=== PATIENT | female | born 1955 | race Caucasian/White ===

== ENCOUNTER → 2019-08-16 08:17 | Outpatient (BNVA) | payer MEDICARE, MEDICAID, SELFPAY | PROVIDERS: Family Provider Family Medicine; PCP Family Medicine; Visit Provider Internal Medicine Cardiovascular Disease | DX: E78.5 Hyperlipidemia, unspecified (principal) | CPT/HCPCS: 80061; 80076 ==

== ENCOUNTER → 2019-09-06 08:00 | Outpatient (BNVA) | payer MEDICARE, MEDICAID, SELFPAY | PROVIDERS: Family Provider Family Medicine; PCP Family Medicine; Visit Provider Anesthesiology | DX: G89.29 Other chronic pain (principal); M48.04 Spinal stenosis, thoracic region; M54.2 Cervicalgia; G62.9 Polyneuropathy, unspecified; Z79.891 Long term (current) use of opiate analgesic | CPT/HCPCS: 99214 ==

== ENCOUNTER 2019-11-23 08:47 | Outpatient (CLI) | payer MEDICARE, MEDICAID, SELFPAY ==
[2019-11-23 08:57] VITALS: BP 127/74; PULSE 70; RESP 16; TEMP 36.7; O2SAT 96
[2019-11-23] MEDS: denosumab 60 mg SDV SUBCUT (09:08)
[2019-11-23 09:54] VITALS: BP 140/75; PULSE 65; RESP 16; TEMP 36.7; O2SAT 96
== END 2019-11-23 08:48 | disposition home or self-care (01) ==
LOC: RHEOACUTE 08:49
PROVIDERS: Family Provider Family Medicine; PCP Family Medicine; Visit Provider Internal Medicine Rheumatology
DX: M81.0 Age-related osteoporosis without current pathological fracture (principal)
CPT/HCPCS: 96372; J0897

== ENCOUNTER 2019-12-15 06:42 | Emergency (ER) | payer MEDICARE, MEDICAID, SELFPAY ==
[2019-12-15 06:49] VITALS: BP 128/80; PULSE 105; RESP 16; TEMP 36.7; O2SAT 99; BMI 35.9
--- NOTE | 2019-12-15 07:03 | W.ED.NAVMDI ---
HPI - Nausea/Vomiting/Diarrhea General: Chief complaint: Nausea/Vomiting/Diarrhea Stated complaint: N/V X4 DAYS Time Seen by Provider: 12/15/19 07:02 Source: patient Mode of arrival: ambulatory Limitations: no limitations History of Present Illness: HPI Narrative: 64-year-old female states she has had nausea vomiting, diarrhea for 3 days. She states that it is improving she states she feels dehydrated and has some epigastric cramping. States her stools are watery in nature. Denies any fevers. She denies any worsening or improving factors. MD elicited complaint: nausea, vomiting and diarrhea Associated nausea: Yes Associated symtoms: Reports nausea; Denies chest pain, dysuria or headache(s) Review of Systems Const: Denies: fever(s), chills, body aches or change in appetite Eyes: Denies: blurry vision or eye discomfort ENMT: Denies: throat pain or dental pain Card: Denies: chest pain Resp: Denies: dyspnea GI: Reports: nausea and vomiting : Denies: dysuria Musc: Denies: neck pain or back pain Skin/Breast: Denies: rash Neuro: Denies: headache(s) Psych: Denies: depression Mans[place]/Lymph: Denies: easy bruising All/Imm: Denies: urticaria PFSH ED PFSH: Medical History Age related osteoporosis ASHD (arteriosclerotic heart disease) Chronic midline thoracic back pain CKD (chronic kidney disease) Controlled diabetes mellitus Diabetes Encounter for long-term (current) use of NSAIDs Encounter for long-term opiate analgesic use Generalized neuropathy Hyperlipidemia Hypertension MOLLY (obstructive sleep apnea) Osteoarthritis Spinal stenosis, thoracic region Surgical History Hx of carpal tunnel repair Hx of cholecystectomy Hx of knee surgery Hx of kyphoplasty Family History Other Cancer Hypertension Social History Smoking and tobacco status: former smoker Second hand smoke exposure: Yes Alcohol intake: never History of recent travel: No Physical Exam Const: COMMON NORMALS: no acute distress, patient oriented x3 and healthy appearing HENMT: COMMON NORMALS: normocephalic and atraumatic HEAD & SCALP: normocephalic and atraumatic Eye: COMMON NORMALS: Equal, round and reactive pupils present and EOMs intact bilaterally PUPIL: Yes Equal, round and reactive pupils present Neck/C-Spine: COMMON NORMALS: full ROM and supple Chest: COMMONS NORMALS: normal inspection of the chest and normal palpation of entire chest wall Resp: COMMON NORMALS: normal respiratory effort, No retractions, No use of accessory muscles and clear to auscultation bilaterally AUSCULTATION: clear to auscultation bilaterally Cardio: COMMON NORMALS: regular rate, regular rhythm and No murmurs present (Cardio) RATE: regular rate RHYTHM: regular rhythm GI: COMMON NORMALS: Normal to inspection, nondistended, normoactive bowel sounds present, Soft to palpation, non-tender and no masses PALPATION: Yes Soft to palpation Extremity: COMMON NORMALS: normal to inspection and full ROM Neuro: COMMON NORMALS: patient oriented x3, moves all extremities and no focal motor deficits Psych: COMMON NORMALS: mental status grossly normal, Normal thought process present and cooperative THOUGHT PROCESS: Normal thought process present Skin: COMMON NORMALS: no rashes or lesions noted and no wounds GENERAL SKIN EXAM: no rashes or lesions noted Course Vital Signs: Vital signs: Vital Signs Temperature 98.0 F 12/15/19 06:49 Pulse Rate 97 12/15/19 08:53 Respiratory Rate 18 12/15/19 08:53 Blood Pressure 129/75 12/15/19 08:53 Pulse Oximetry 97 12/15/19 08:53 MDM - Nausea/Vomiting/Diarrhea MDM Narrative: Medical decision making narrative: Patient presents with nausea vomiting diarrhea that is likely viral in origin. Patient feels much improved here after Zofran. She was unable to give a stool sample. Her lab work here is normal. She is stable for discharge and is to follow-up with primary care doctor in 3 to 5 days return if worsening. Lab Data: Labs: Lab Results 12/15/19 12/15/19 Range/Units 07:10 07:10 WBC 7.7 (4.0-10.0) 10^3/ uL RBC 4.65 (4.1-5.3) 10^6/u L Hgb 13.9 (11.5-15.3) g/dL Hct 44.1 (37.0-47.0) % MCV 94.8 (81-99) fL MCH 29.9 (28.0-34.0) pg MCHC 31.5 (30.0-36.0) g/dL RDW 12.4 (12.1-15.1) % Plt Count 208 (130-400) 10^3/c mm MPV 9.5 (7.4-10.4) fL Neut % (Auto) 73.8 % Lymph % (Auto) 15.1 % Powell % (Auto) 10.0 % Eos % (Auto) 0.0 % Baso % (Auto) 0.4 % Neut # (Auto) 5.7 (1.8-7.7) 10^3/u L Lymph # (Auto) 1.2 (0.8-4.8) 10^3/u L Powell # (Auto) 0.8 (0.2-0.9) 10^3/u L Eos # (Auto) 0.0 (0.0-0.8) 10^3/u L Baso # (Auto) 0.0 (0.0-0.1) 10^3/u L Nucleated RBC % (a uto) 0 % Nucleated RBCs # 0.0 /100WBC Sodium 129 L (136-145) mmol/L Potassium 3.2 L (3.5-5.1) mmol/L Chloride 93 L (98-107) mmol/L Carbon Dioxide 21 L (22-29) mmol/L Anion Gap 18.2 (5-19) BUN 15 (8-23) mg/dL Creatinine 1.1 H (0.5-0.9) mg/dL GFR Calculation 50.2 L (90-130) mL/min Glucose 162 H (65-115) mg/dL Calculated Osmolal ity 268 L (285-295) mOsm/k g Calcium 8.4 L (8.5-10.5) mg/dL Total Bilirubin 0.3 (0.15-1.2) mg/dL AST 16 (0-32) U/L ALT < 5 (0-33) U/L Alkaline Phosphata se 81 (35-105) IU/L Total Protein 7.7 (6.6-8.7) g/dL Albumin 4.0 (3.5-5.2) g/dL Globulin 3.7 (1.3-4.6) g/dL Lipase 18 (13-60) U/L Discharge Plan Discharge Patient Disposition: Home, Self-Care Clinical Impression: Diarrhea Vomiting Qualifiers: Vomiting type: unspecified Vomiting Intractability: non-intractable Nausea presence: with nausea Qualified Code(s): R11.2 - Nausea with vomiting, unspecified Condition: Stable Prescriptions: New Zofran 4 mg tablet 4 mg PO QID PRN (Reason: nausea and vomiting) Qty: 14 RF: 0 No Action amlodipine 5 mg tablet 5 mg PO DAILY RF: 0 aspirin [Adult Aspirin Regimen] 81 mg tablet,delayed release (DR/EC) 81 mg PO DAILY RF: 0 glipizide 5 mg tablet 5 mg PO DAILY RF: 0 naproxen 500 mg tablet 500 mg PO BID RF: 0 escitalopram oxalate 10 mg tablet 10 mg PO DAILY RF: 0 omega-3 fatty acids Capsule 1,250 mg PO DAILY RF: 0 rosuvastatin [Crestor] 40 mg tablet 40 mg PO DAILY RF: 0 bupropion HCl 150 mg tablet extended release 24 hr 150 mg PO QAM RF: 0 Dexilant 60 mg capsule,biphase delayed releas 60 mg PO DAILY RF: 0 calcium citrate-vitamin D3 PO RF: 0 hydromorphone 4 mg tablet 4 mg PO TID PRN (Reason: pain) 30 Days Qty: 90 RF: 0 hydromorphone [Dilaudid] 4 mg tablet 4 mg PO TID PRN (Reason: pain) 30 Days Qty: 90 RF: 0 ezetimibe 10 mg tablet 10 mg PO DAILY 90 Days Qty: 90 RF: 3 carvedilol 6.25 mg tablet 6.25 mg PO BID Qty: 180 RF: 3 Discharge Orders: Discharge Order (Routine); Ordered 12/15/19 Ordered By: Riri Coates Referrals: Dena Mueller MD [Primary Care Provider] - 1-3 days Discharge Diet: Advance as tolerated Discharge Activity: Resume usual activity Patient Instructions: Acute Nausea and Vomiting (ED) Discharge Date/Time: 12/15/19 08:53 Coding Level of Care Code ED Correctional Manager for Chg Fwd Exam Comprehensive
[2019-12-15] MEDS: sodium chloride 0.9% 1,000 ML 999 ML IV (07:18)
[2019-12-15] MEDS: ondansetron 2 mg/ML SDV 2 mL 4 MG IVP (07:19)
[2019-12-15 07:21] VITALS: RESP 18
[2019-12-15] MEDS: morphine 4 mg/mL SDV 1 mL IVP (07:21)
[2019-12-15 07:29] LABS: Basophils % 0.4 %; Hematocrit 44.1 % (37.0-47.0); Hemoglobin 13.9 g/dL (11.5-15.3); Lymphocytes # 1.2 10^3/uL (0.8-4.8); Lymphocytes % 15.1 %; Mean Corpuscular HGB Conc 31.5 g/dL (30.0-36.0); Mean Corpuscular Hemoglobin 29.9 pg (28.0-34.0); Mean Corpuscular Volume 94.8 fL (81-99); Mean Platelet Volume 9.5 fL (7.4-10.4); Monocytes # 0.8 10^3/uL (0.2-0.9); Neutrophils # 5.7 10^3/uL (1.8-7.7); Neutrophils % 73.8 %; Nucleated Red Blood Cells % 0 %; Platelet Count 208 10^3/cmm (130-400); Red Blood Count 4.65 10^6/uL (4.1-5.3); Red Cell Distribution Width 12.4 % (12.1-15.1); White Blood Count 7.7 10^3/uL (4.0-10.0)
[2019-12-15 07:50] LABS: Alanine Aminotransferase < 5 U/L (0-33); Alkaline Phosphatase 81 IU/L (35-105); Anion Gap 18.2 (5-19); Aspartate Amino Transferase 16 U/L (0-32); Blood Urea Nitrogen 15 mg/dL (8-23); Calcium 8.4 mg/dL (8.5-10.5); Carbon Dioxide 21 mmol/L (22-29); Chloride 93 mmol/L (98-107); Globulin 3.7 g/dL (1.3-4.6); Glomerular Filtration Rate 50.2 mL/min (90-130); Glucose 162 mg/dL (65-115); Lipase 18 U/L (13-60); Osmolality Calculated 268 mOsm/kg (285-295); Potassium 3.2 mmol/L (3.5-5.1); Sodium 129 mmol/L (136-145); Total Bilirubin 0.3 mg/dL (0.15-1.2); Total Protein 7.7 g/dL (6.6-8.7)
[2019-12-15 08:00] VITALS: BP 135/74; PULSE 99; RESP 15; O2SAT 99
[2019-12-15] MEDS: diphenhydrAMINE 50 mg/mL SDV 1mL 25 MG IVP (08:03)
[2019-12-15] MEDS: metoclopramide 5 mg/mL SDV 2 mL IVP (08:03)
[2019-12-15 08:53] VITALS: BP 129/75; PULSE 97; RESP 18; O2SAT 97
== END 2019-12-15 08:53 | disposition home or self-care (01) ==
PROVIDERS: Emergency Provider Emergency Medicine; PCP Family Medicine
DX: R11.2 Nausea with vomiting, unspecified (principal); R19.7 Diarrhea, unspecified; Z79.82 Long term (current) use of aspirin; Z79.84 Long term (current) use of oral hypoglycemic drugs; E11.9 Type 2 diabetes mellitus without complications; E78.5 Hyperlipidemia, unspecified; I10 Essential (primary) hypertension; Z87.891 Personal history of nicotine dependence
CPT/HCPCS: 12345; 80053; 83690; 85025; 96361; 96374; 96375; 99282; 99283; J1200; J2270; J2405; J2765; J7030

== ENCOUNTER → 2020-01-02 08:00 | Outpatient (BNVA) | payer MEDICARE, MEDICAID, SELFPAY | PROVIDERS: PCP Family Medicine; Visit Provider Anesthesiology | DX: G89.29 Other chronic pain (principal); M54.2 Cervicalgia; M48.04 Spinal stenosis, thoracic region; Z79.891 Long term (current) use of opiate analgesic | CPT/HCPCS: 99213; 99214 ==

== ENCOUNTER → 2020-02-29 07:54 | Outpatient (BNVA) | payer MEDICARE, MEDICAID, SELFPAY | PROVIDERS: PCP Family Medicine; Visit Provider Anesthesiology | DX: G89.29 Other chronic pain (principal); M54.41 Lumbago with sciatica, right side; M54.42 Lumbago with sciatica, left side; M48.04 Spinal stenosis, thoracic region; M54.2 Cervicalgia; Z79.891 Long term (current) use of opiate analgesic | CPT/HCPCS: 99214 ==

== ENCOUNTER → 2020-04-30 07:49 | Outpatient (BNVA) | payer MEDICARE, MEDICAID, SELFPAY | PROVIDERS: PCP Family Medicine; Visit Provider Anesthesiology | DX: G89.29 Other chronic pain (principal); M54.2 Cervicalgia; M48.04 Spinal stenosis, thoracic region; G62.9 Polyneuropathy, unspecified; Z79.891 Long term (current) use of opiate analgesic | CPT/HCPCS: 99214 ==

== ENCOUNTER 2020-05-06 14:50 | Outpatient (CLI) | payer MEDICARE, MEDICAID, SELFPAY ==
--- NOTE | 2020-05-06 15:04 | XR_ITS ---
WS: [id number] DEXA (DUAL ENERGY X-RAY ABSORPTIOMETRY) Bone mineral density was performed using a [employer] machine. HISTORY: OSTEOPOROSIS COMPARISON: 04/18/2018 Lumbar spine BMD (L1-L4): 1.083 g/cm2 T score: -0.8 Z score: -0.2 Total hip BMD: Left: 0.711 g/cm2. T score: -2.4 Z score: -1.9 Right: 0.663 g/cm2. T score: -2.7 Z score: -2.3 10 year probability of a major osteoporotic fracture is 32%. Compared to the prior study from 04/18/2018. Lumbar spine bone mineral density has increased by 8.0%. Bilateral hips bone mineral density has increased by 4.4%. XR/XR DEXA axial skeleton* [id number] IMPRESSION: OSTEOPOROSIS based upon the WHO classification for females. Increase in bone mi neral density since the prior exam but there is still significant osteoporosis.
== END 2020-05-06 14:51 | disposition home or self-care (01) ==
LOC: RADWPI 14:52
PROVIDERS: PCP Family Medicine; Visit Provider Family Medicine
DX: M81.0 Age-related osteoporosis without current pathological fracture (principal)
CPT/HCPCS: 77080

== ENCOUNTER 2020-05-08 07:37 | Outpatient (CLI) | payer MEDICARE, MEDICAID, SELFPAY ==
--- NOTE | 2020-05-08 08:03 | MM_ITS ---
WS: [id number] BILATERAL SCREENING DIGITAL MAMMOGRAM WITH CAD HISTORY: SCREENING COMPARISON: 03/17/2019 and 03/01/2018 Bilateral CC and MLO views submitted. Computer aided detection analyzed. Breast composition: There are scattered areas of fibroglandular density. No suspicious masses, microc alcifications or architectural distortion. Numerous benign round scattered calcifications in each carline ast. MM/[place] [id number] IMPRESSION: BI-RADS: 2-Benign FOLLOW UP: 1 Year Follow-up
== END 2020-05-08 07:38 | disposition home or self-care (01) ==
LOC: RADSHAW 07:40
PROVIDERS: PCP Family Medicine; Visit Provider Family Medicine
DX: Z12.31 Encounter for screening mammogram for malignant neoplasm of breast (principal)
CPT/HCPCS: 77067

== ENCOUNTER 2020-05-27 09:41 | Outpatient (CLI) | payer MEDICARE, MEDICAID, SELFPAY ==
[2020-05-27 09:45] VITALS: BP 131/70; PULSE 66; RESP 16; TEMP 36.6; O2SAT 98
[2020-05-27] MEDS: denosumab 60 mg SDV SUBCUT (09:56)
[2020-05-27 10:25] VITALS: BP 124/67; PULSE 69; RESP 16; TEMP 36.8; O2SAT 97
--- NOTE | 2020-05-27 10:26 | PC.NURSE ---
0945 A&O. Ambulating with prong cane. Denies s&s symptoms of infection. States no new medication changes. States had a DEXA scan recently. [facility] has been on Prolia since 2014.
== END 2020-05-27 09:42 | disposition home or self-care (01) ==
LOC: RHEOACUTE 09:42
PROVIDERS: PCP Family Medicine; Visit Provider Internal Medicine Rheumatology
DX: M81.0 Age-related osteoporosis without current pathological fracture (principal)
CPT/HCPCS: 96372; J0897

== ENCOUNTER → 2020-05-28 11:08 | Outpatient (BNVA) | payer MEDICARE, MEDICAID, SELFPAY | PROVIDERS: PCP Family Medicine; Visit Provider Dermatology | DX: D48.9 Neoplasm of uncertain behavior, unspecified (principal) | CPT/HCPCS: 88304 ==

== ENCOUNTER → 2020-06-25 07:57 | Outpatient (BNVA) | payer MEDICARE, MEDICAID, SELFPAY | PROVIDERS: PCP Family Medicine; Visit Provider Anesthesiology | DX: M54.6 Pain in thoracic spine (principal); G89.29 Other chronic pain; M48.04 Spinal stenosis, thoracic region; Z79.891 Long term (current) use of opiate analgesic; G62.9 Polyneuropathy, unspecified; M54.2 Cervicalgia | CPT/HCPCS: 99214 ==

== ENCOUNTER → 2020-08-15 07:57 | Outpatient (BNVA) | payer MEDICARE, MEDICAID, SELFPAY | PROVIDERS: PCP Family Medicine; Visit Provider Anesthesiology | DX: G89.29 Other chronic pain (principal); M54.2 Cervicalgia; M48.04 Spinal stenosis, thoracic region; Z79.891 Long term (current) use of opiate analgesic | CPT/HCPCS: 99213 ==

== ENCOUNTER → 2020-09-18 08:08 | Outpatient (BNVA) | payer MEDICARE, MEDICAID, SELFPAY | PROVIDERS: PCP Family Medicine; Visit Provider Anesthesiology | DX: G89.29 Other chronic pain (principal); M54.41 Lumbago with sciatica, right side; M54.6 Pain in thoracic spine; M48.04 Spinal stenosis, thoracic region; Z79.891 Long term (current) use of opiate analgesic | CPT/HCPCS: 99213 ==

== ENCOUNTER → 2020-11-28 07:54 | Outpatient (BNVA) | payer MEDICARE, MEDICAID, SELFPAY | PROVIDERS: PCP Family Medicine; Visit Provider Anesthesiology | DX: G89.29 Other chronic pain (principal); M48.04 Spinal stenosis, thoracic region; M54.2 Cervicalgia; Z79.891 Long term (current) use of opiate analgesic | CPT/HCPCS: 99213 ==

== ENCOUNTER 2021-01-21 16:49 | Emergency (ER) | payer MEDICARE, MEDICAID, SELFPAY ==
[2021-01-21 18:10] VITALS: BP 131/84; PULSE 95; RESP 18; TEMP 37.2; O2SAT 95; BMI 40.6
--- NOTE | 2021-01-21 21:06 | XRR_ITS ---
PROCEDURE INFORMATION: Exam: XR Chest Exam date and time: 01/21/2021 9:06 PM Age: 66 years old Clinical indication: Cough TECHNIQUE: Imaging protocol: XR of the chest. Views: 1 view. COMPARISON: CR Chest 1 [place] [id number] 02/17/2018 12:21 AM FINDINGS: Lungs: Unremarkable. No consolidation. Pleural spaces: Unremarkable. No pleural effusion. No pneumothorax. Heart/Mediastinum: Unremarkable. No cardiomegaly. Bones/joints: Status post vertebroplasty. Postoperative changes of the left shoulder. XR/XR chest 1V portable [id number] IMPRESSION: No acute findings
--- NOTE | 2021-01-21 21:06 | ECG_ITS ---
[facility] Test Date: 2021-01-21 Pat Name: Griselda Manjarrez Department: Room: Gender: Female [employer] Stitcher: : [id number] Requested By: Arun Almanzar Order Number: [id number] Matilde MD: Hitesh Hooker M.D. Measurements Intervals [place] Rate: 90 P: 24 OK: 151 QRS: 11 QRSD: 89 T: 56 QT: 388 QTc: 476 Interpretive Statements SINUS RHYTHM LOW QRS VOLTAGE IN PRECORDIAL LEADS [QRS DEFLECTION < 1.0 mV IN CHEST LEADS] NONSPECIFIC T-WAVE ABNORMALITY Compared to ECG 02/17/2018 00:06:19 Low QRS voltage now present T-wave abnormality now present Sinus tachycardia no longer present Electronically Signed On 01-22-2021 22:49:47 CDT by Hitesh Hooker M.D. [email or web address]
--- NOTE | 2021-01-21 21:07 | ED_ITS ---
Documented by User: Arun Almanzar MD 01/21/21 22:56 HPI - Dizziness General: Chief Complaint: Dizziness Stated Complaint: DIZZY, COUGH Time Seen by Provider: 01/21/21 21:02 History of Present Illness: HPI Narrative: This patient is a 66-year-old female who presents to the emergency department with complaint of cough congestion and dizziness for the past couple days. Patient states that this has gotten so profound today that she feels like she is going to fall she tries to get up. Patient states she has had this cough and congestion seems like she cannot cough anything. Patient denies fever. Denies body aches. Will do medical evaluation treat as needed. MD elicited complaint: dizziness and vertigo Timing: gradual onset Severity: moderate Description: sense of movement, room spinning , lightheadedness and difficulty walking Associated symptoms: Denies chest pain, chills, headache(s), nausea, palpitations or vomiting Associated neuro symptoms: Deny numbness in extremities Review of Systems General: Reports: 10 or more systems reviewed and unremarkable except in HPI and below Const: Denies: fever(s), chills, body aches or fatigue Eyes: Denies: change in vision or blurry vision ENMT: Denies: throat pain, hoarseness or mouth pain Card: Denies: chest pain, palpitations, irregular heart rhythm, edema, swelling of feet/ankles or lightheadedness Resp: Denies: dyspnea, productive cough, non-productive cough, wheezing or pain on inspiration GI: Denies: abdominal pain, nausea or vomiting : Denies: flank pain, difficulty voiding, dysuria, urinary frequency, urinary urgency or urinary hesitancy Musc: Denies: neck pain, back pain, extremity pain, extremity swelling, joint pain, joint swelling, joint redness, joint warmth or limited range of motion Skin/Breast: Denies: rash, pruritus, erythema or skin tenderness Neuro: Reports: difficulty walking and dizziness; Denies: headache(s), numbness in extremities or weakness in extremities Psych: Denies: anxiety or depression PFS ED PFSH: Medical History (Updated 01/22/21 @ 01:11 by Keith Reza MD) Age related osteoporosis ASHD (arteriosclerotic heart disease) Chronic midline thoracic back pain CKD (chronic kidney disease) Controlled diabetes mellitus Diabetes Encounter for long-term (current) use of NSAIDs Encounter for long-term opiate analgesic use Generalized neuropathy Hyperlipidemia Hypertension MOLLY (obstructive sleep apnea) Osteoarthritis Spinal stenosis, thoracic region Surgical History Hx of carpal tunnel repair Hx of cholecystectomy Hx of knee surgery Hx of kyphoplasty Family History Other Cancer Hypertension Social History Smoking and tobacco status: former smoker Second hand smoke exposure: Yes Alcohol intake: never History of recent travel: No Physical Exam Const: COMMON NORMALS: no acute distress, average body habitus, patient oriented x3, no limitations, healthy appearing, alert and well nourished HENMT: COMMON NORMALS: normocephalic, atraumatic, hearing grossly normal bilaterally, external ears normal, EAC's normal, TM's normal bilaterally, Normal external nose present, Normal nasal mucous membranes and turbinates present, moist oral mucous membranes, oropharynx normal, dentition normal and gingiva normal HEAD & SCALP: normocephalic and atraumatic NOSE: Normal external nose present and Normal nasal mucous membranes and turbinates present EXTERNAL EAR: Yes external ears normal EXTERNAL AUDITORY CANAL: EAC's normal TYMPANIC MEMBRANE: TM's normal bilaterally Neck/C-Spine: COMMON NORMALS: full ROM, no lymphadenopathy, supple, no meningeal signs, no JVD, Thyroid normal and No carotid bruits THYROID: Thyroid normal Chest: COMMONS NORMALS: normal inspection of the chest, normal palpation of entire chest wall, normal inspection of the breasts and normal palpation of the breasts Breast/axilla inspection: Yes normal inspection of the breasts BREAST/AXILLA PALPATION: Yes normal palpation of the breasts Resp: COMMON NORMALS: normal respiratory effort, No retractions, No use of accessory muscles, clear to auscultation bilaterally and percussion normal AUSCULTATION: clear to auscultation bilaterally PERCUSSION: percussion normal Cardio: COMMON NORMALS: no JVD, regular rate, regular rhythm, S1 normal heart sound present, S2 normal heart sound present, No gallops present (Cardio), No clicks present (Cardio), No murmurs present (Cardio), No rub (Cardio) and Peripheral pulses 2+ throughout RATE: regular rate RHYTHM: regular rhythm HEART SOUNDS: S1 normal heart sound present and S2 normal heart sound present PERIPHERAL PULSES: Peripheral pulses 2+ throughout GI: COMMON NORMALS: Normal to inspection, nondistended, normoactive bowel luis alberto nds present, Soft to palpation, non-tender, No hepatosplenomegaly present, no masses and no bruits PALPATION: Yes Soft to palpation and Yes No hepatosplenomegaly present : COMMON NORMALS: Yes no CVA tenderness, Yes normal external appearance, Yes normal appearance of the vagina, Yes normal appearance of the cervix, Yes normal bimanual exam, Yes No adnexal tenderness and Yes no masses BLADDER/KIDNEY EXAM: Yes no CVA tenderness BIMANUAL EXAM - VAGINA & UTERUS: Yes normal bimanual exam Back/Pelvis: COMMON NORMALS: no CVA tenderness, thoracic and lumbar spine normal to inspection, no thoracic nor lumbar tenderness, thoraco-lumbar ROM normal and straight leg raise negative bilaterally Extremity: COMMON NORMALS: normal to inspection, full ROM, capillary refill normal, no joint enlargement, no clubbing, cyanosis or edema, no calf tenderness and no pedal edema Neuro: COMMON NORMALS: patient oriented x3 SENSORIUM/ORIENTATION: Yes alert MENINGEAL SIGNS: Yes no meningeal signs Course Consultations: Consultation #1: Care transferred to Dr. Reza for shift change he will continue to monitor the patient and disposition as needed Time: 22:55 Vital Signs: Vital signs: Vital Signs Temperature 99.0 F 01/21/21 18:10 Pulse Rate 84 01/22/21 01:49 Respiratory Rate 18 01/22/21 01:49 Blood Pressure 129/87 01/22/21 01:49 Pulse Oximetry 98 01/22/21 01:49 MDM - Dizziness Lab Data: Labs: Lab Results 01/21/21 01/21/21 01/21/21 Range/Units 22:35 22:45 23:25 WBC 11.4 H (4.0-10.0) 10^3/ uL RBC 3.47 L (4.1-5.3) 10^6/u L Hgb 10.3 L (11.5-15.3) g/dL Hct 34.6 L (37.0-47.0) % MCV 99.7 H (81-99) fL MCH 29.7 (28.0-34.0) pg MCHC 29.8 L (30.0-36.0) g/dL RDW 12.6 (12.1-15.1) % Plt Count 281 (130-400) 10^3/c mm MPV 9.4 (7.4-10.4) fL Neut % (Auto) 65.2 % Lymph % (Auto) 23.1 % [place] % (Auto) 10.2 % Eos % (Auto) 0.5 % Baso % (Auto) 0.5 % Neut # (Auto) 7.42 (1.8-7.7) 10^3/u L Lymph # (Auto) 2.6 (0.8-4.8) 10^3/u L [place] # (Auto) 1.2 H (0.2-0.9) 10^3/u L Eos # (Auto) 0.1 (0.0-0.8) 10^3/u L Baso # (Auto) 0.1 (0.0-0.1) 10^3/u L Nucleated RBC % (a uto) 0 % Nucleated RBCs # 0.0 /100WBC PT (12.1-14.9) SECO NDS INR (0.8-1.2) APTT (23.9-36.7) SECO NDS Sodium (136-145) mmol/L Potassium (3.5-5.1) mmol/L Chloride (98-107) mmol/L Carbon Dioxide (22-29) mmol/L Anion Gap (5-19) BUN (8-23) mg/dL Creatinine (0.5-0.9) mg/dL GFR Calculation (90-130) mL/min Glucose (65-115) mg/dL Calculated Osmolal ity (285-295) mOsm/k g Calcium (8.5-10.5) mg/dL Total Bilirubin (0.15-1.2) mg/dL AST (0-32) U/L ALT (0-33) U/L Alkaline Phosphata se (35-105) IU/L NT-Pro-B Natriuret Pep (0-125) pg/mL Total Protein (6.6-8.7) g/dL Albumin (3.5-5.2) g/dL Globulin (1.3-4.6) g/dL Urine Color Yellow (Yellow) Urine Appearance Clear (CLEAR) Urine pH 6 (5-7) Ur Specific Gravit y 1.015 (1.005-1.030) Urine Protein Neg (Negative) Urine Glucose (UA) Norm (Normal) Urine Ketones Negative (Negative) Urine Blood Neg (Negative) Urine Nitrate Negative (Negative) Urine Bilirubin Neg (Negative) Urine Urobilinogen 4 H (Negative) mg/dL Ur Leukocyte [place] ase Negative (Negative) SARS-CoV-2 Ag (Rap id) Negative (Negative) 01/21/21 01/21/21 Range/Units 23:25 23:25 WBC (4.0-10.0) 10^3/ uL RBC (4.1-5.3) 10^6/u L Hgb (11.5-15.3) g/dL Hct (37.0-47.0) % MCV (81-99) fL MCH (28.0-34.0) pg MCHC (30.0-36.0) g/dL RDW (12.1-15.1) % Plt Count (130-400) 10^3/c mm MPV (7.4-10.4) fL Neut % (Auto) % Lymph % (Auto) % [place] % (Auto) % Eos % (Auto) % Baso % (Auto) % Neut # (Auto) (1.8-7.7) 10^3/u L Lymph # (Auto) (0.8-4.8) 10^3/u L [place] # (Auto) (0.2-0.9) 10^3/u L Eos # (Auto) (0.0-0.8) 10^3/u L Baso # (Auto) (0.0-0.1) 10^3/u L Nucleated RBC % (a uto) % Nucleated RBCs # /100WBC PT 15.00 H (12.1-14.9) SECO NDS INR 1.14 (0.8-1.2) APTT 30.4 (23.9-36.7) SECO NDS Sodium 136 (136-145) mmol/L Potassium 3.9 (3.5-5.1) mmol/L Chloride 101 (98-107) mmol/L Carbon Dioxide 26 (22-29) mmol/L Anion Gap 12.9 (5-19) BUN 14 (8-23) mg/dL Creatinine 1.1 H (0.5-0.9) mg/dL GFR Calculation 49.8 L (90-130) mL/min Glucose 124 H (65-115) mg/dL Calculated Osmolal ity 284 L (285-295) mOsm/k g Calcium 8.9 (8.5-10.5) mg/dL Total Bilirubin 0.4 (0.15-1.2) mg/dL AST 9 (0-32) U/L ALT < 5 (0-33) U/L Alkaline Phosphata se 105 (35-105) IU/L NT-Pro-B Natriuret Pep 200 H (0-125) pg/mL Total Protein 6.9 (6.6-8.7) g/dL Albumin 3.4 L (3.5-5.2) g/dL Globulin 3.5 (1.3-4.6) g/dL Urine Color (Yellow) Urine Appearance (CLEAR) Urine pH (5-7) Ur Specific Gravit y (1.005-1.030) Urine Protein (Negative) Urine Glucose (UA) (Normal) Urine Ketones (Negative) Urine Blood (Negative) Urine Nitrate (Negative) Urine Bilirubin (Negative) Urine Urobilinogen (Negative) mg/dL Ur Leukocyte [place] ase (Negative) SARS-CoV-2 Ag (Rap id) (Negative) Imaging Data^: CT Head: Attestation: I personally reviewed and interpreted this imaging study as fol lows: Radiologist's impression: IMPRESSION: 1. Mild chronic microvascular disease. 2. Acute intracranial lesion or injury and no change from prior scan CXR: Attestation: I personally reviewed and interpreted this imaging study as follows: Radiologist's impression: No acute findings EKG Data^: EKG 1: Attestation: I personally reviewed and interpreted this EKG as follows: EKG interpretation date: 01/21/21 EKG interpretation time: 22:08 Prior EKG tracings: not available for review Ischemic changes: non-specific ST-T wave changes Interpretation: Sinus rhythm heart rate 90 nonspecific EKG changes. Discharge Plan Discharge Patient Disposition: Home Clinical Impression: Peripheral positional vertigo, Hemoglobin decreased Condition: Stable Prescriptions: New meclizine 25 mg tablet,chewable 25 mg PO TID PRN (Reason: dizziness) Qty: 30 RF: 0 No Action amlodipine 5 mg tablet 5 mg PO DAILY RF: 0 aspirin [Adult Aspirin Regimen] 81 mg tablet,delayed release (DR/EC) 81 mg PO DAILY RF: 0 escitalopram oxalate 10 mg tablet 10 mg PO DAILY RF: 0 rosuvastatin [Crestor] 40 mg tablet 40 mg PO DAILY RF: 0 bupropion HCl 150 mg tablet extended release 24 hr 150 mg PO DAILY RF: 0 Dexilant 60 mg capsule,biphase delayed releas 60 mg PO DAILY RF: 0 calcium citrate-vitamin D3 1 tab PO DAILY RF: 0 ropinirole 0.5 mg tablet 0.5 mg PO BID RF: 0 hydromorphone 4 mg tablet 4 mg PO TID PRN (Reason: pain) 30 Days Qty: 90 RF: 0 carvedilol 6.25 mg tablet 6.25 mg PO BID Qty: 180 RF: 3 glipizide 10 mg tablet extended release 24hr 40 mg PO DAILY RF: 0 [place] 3 Fish Oil Concentrate 1,250 mg PO DAILY RF: 0 Zetia 10 mg tablet 10 mg PO DAILY RF: 0 Discharge Orders: Discharge ED (Routine); Ordered 01/22/21 Ordered By: Keith Reza Referrals: Dena Mueller MD [Primary Care Provider] - (to recheck hemoglobin. concern for occult GI bleed) Discharge Diet: Usual diet Discharge Activity: Increase activity as tolerated Patient Instructions: Opioid Safety Activity Restrictions/Additional Instructions: Please be mindful of your hemoglobin drop. Is gone from 13.9-10.3 over the last several weeks. This likely represents an occult gastrointestinal bleed. Please follow-up with your primary care physician in roughly 1 to 2 weeks to recheck your blood levels. Please take the medicine as prescribed for your peripheral vertigo. Coding Level of Care Code ED Ratoprinter for Chg Fwd Exam Comprehensive Documented by User: Keith Reza MD 01/22/21 05:12 HPI - Dizziness General: Chief Complaint: Dizziness Stated Complaint: DIZZY, COUGH Time Seen by Provider: 01/21/21 21:02 [facility] ED PFSH: Medical History (Updated 01/22/21 @ 01:11 by Keith Reza MD) Age related osteoporosis ASHD (arteriosclerotic heart disease) Chronic midline thoracic back pain CKD (chronic kidney disease) Controlled diabetes mellitus Diabetes Encounter for long-term (current) use of NSAIDs Encounter for long-term opiate analgesic use Generalized neuropathy Hyperlipidemia Hypertension MOLLY (obstructive sleep apnea) Osteoarthritis Spinal stenosis, thoracic region Surgical History Hx of carpal tunnel repair Hx of cholecystectomy Hx of knee surgery Hx of kyphoplasty Family History Other Cancer Hypertension Social History Smoking and tobacco status: former smoker Second hand smoke exposure: Yes Alcohol intake: never History of recent travel: No Course Vital Signs: Vital signs: Vital Signs Temperature 99.0 F 01/21/21 18:10 Pulse Rate 84 01/22/21 01:49 Respiratory Rate 18 01/22/21 01:49 Blood Pressure 129/87 01/22/21 01:49 Pulse Oximetry 98 01/22/21 01:49 MDM - Dizziness MDM Narrative: Medical decision making narrative: Patient remained hemodynamically stable through ED course. Symptoms are consistent with peripheral vertigo, and are much better after receiving meclizine. Of note, hemoglobin is dropped significantly. She denies dark or bloody stools. I advised that she follow close with her primary care physician to make sure her hemoglobin does not continue to drop. She knows she is always welcome back in the emergency department if her symptoms get worse before outpatient follow-up. She will be given a short course of meclizine. Lab Data: Labs: Lab Results 01/21/21 01/21/21 01/21/21 Range/Units 22:35 22:45 23:25 WBC 11.4 H (4.0-10.0) 10^3/ uL RBC 3.47 L (4.1-5.3) 10^6/u L Hgb 10.3 L (11.5-15.3) g/dL Hct 34.6 L (37.0-47.0) % MCV 99.7 H (81-99) fL MCH 29.7 (28.0-34.0) pg MCHC 29.8 L (30.0-36.0) g/dL RDW 12.6 (12.1-15.1) % Plt Count 281 (130-400) 10^3/c mm MPV 9.4 (7.4-10.4) fL Neut % (Auto) 65.2 % Lymph % (Auto) 23.1 % [place] % (Auto) 10.2 % Eos % (Auto) 0.5 % Baso % (Auto) 0.5 % Neut # (Auto) 7.42 (1.8-7.7) 10^3/u L Lymph # (Auto) 2.6 (0.8-4.8) 10^3/u L [place] # (Auto) 1.2 H (0.2-0.9) 10^3/u L Eos # (Auto) 0.1 (0.0-0.8) 10^3/u L Baso # (Auto) 0.1 (0.0-0.1) 10^3/u L Nucleated RBC % (a uto) 0 % Nucleated RBCs # 0.0 /100WBC PT (12.1-14.9) SECO NDS INR (0.8-1.2) APTT (23.9-36.7) SECO NDS Sodium (136-145) mmol/L Potassium (3.5-5.1) mmol/L Chloride (98-107) mmol/L Carbon Dioxide (22-29) mmol/L Anion Gap (5-19) BUN (8-23) mg/dL Creatinine (0.5-0.9) mg/dL GFR Calculation (90-130) mL/min Glucose (65-115) mg/dL Calculated Osmolal ity (285-295) mOsm/k g Calcium (8.5-10.5) mg/dL Total Bilirubin (0.15-1.2) mg/dL AST (0-32) U/L ALT (0-33) U/L Alkaline Phosphata se (35-105) IU/L NT-Pro-B Natriuret Pep (0-125) pg/mL Total Protein (6.6-8.7) g/dL Albumin (3.5-5.2) g/dL Globulin (1.3-4.6) g/dL Urine Color Yellow (Yellow) Urine Appearance Clear (CLEAR) Urine pH 6 (5-7) Ur Specific Gravit y 1.015 (1.005-1.030) Urine Protein Neg (Negative) Urine Glucose (UA) Norm (Normal) Urine Ketones Negative (Negative) Urine Blood Neg (Negative) Urine Nitrate Negative (Negative) Urine Bilirubin Neg (Negative) Urine Urobilinogen 4 H (Negative) mg/dL Ur Leukocyte [place] a[place] Negative (Negative) SARS-CoV-2 Ag (Rap id) Negative (Negative) 01/21/21 01/21/21 Range/Units 23:25 23:25 WBC (4.0-10.0) 10^3/ uL RBC (4.1-5.3) 10^6/u L Hgb (11.5-15.3) g/dL Hct (37.0-47.0) % MCV (81-99) fL MCH (28.0-34.0) pg MCHC (30.0-36.0) g/dL RDW (12.1-15.1) % Plt Count (130-400) 10^3/c mm MPV (7.4-10.4) fL Neut % (Auto) % Lymph % (Auto) % [place] % (Auto) % Eos % (Auto) % Baso % (Auto) % Neut # (Auto) (1.8-7.7) 10^3/u L Lymph # (Auto) (0.8-4.8) 10^3/u L [place] # (Auto) (0.2-0.9) 10^3/u L Eos # (Auto) (0.0-0.8) 10^3/u L Baso # (Auto) (0.0-0.1) 10^3/u L Nucleated RBC % (a uto) % Nucleated RBCs # /100WBC PT 15.00 H (12.1-14.9) SECO NDS INR 1.14 (0.8-1.2) APTT 30.4 (23.9-36.7) SECO NDS Sodium 136 (136-145) mmol/L Potassium 3.9 (3.5-5.1) mmol/L Chloride 101 (98-107) mmol/L Carbon Dioxide 26 (22-29) mmol/L Anion Gap 12.9 (5-19) BUN 14 (8-23) mg/dL Creatinine 1.1 H (0.5-0.9) mg/dL GFR Calculation 49.8 L (90-130) mL/min Glucose 124 H (65-115) mg/dL Calculated Osmolal ity 284 L (285-295) mOsm/k g Calcium 8.9 (8.5-10.5) mg/dL Total Bilirubin 0.4 (0.15-1.2) mg/dL AST 9 (0-32) U/L ALT < 5 (0-33) U/L Alkaline Phosphata se 105 (35-105) IU/L NT-Pro-B Natriuret Pep 200 H (0-125) pg/mL Total Protein 6.9 (6.6-8.7) g/dL Albumin 3.4 L (3.5-5.2) g/dL Globulin 3.5 (1.3-4.6) g/dL Urine Color (Yellow) Urine Appearance (CLEAR) Urine pH (5-7) Ur Specific Gravit y (1.005-1.030) Urine Protein (Negative) Urine Glucose (UA) (Normal) Urine Ketones (Negative) Urine Blood (Negative) Urine Nitrate (Negative) Urine Bilirubin (Negative) Urine Urobilinogen (Negative) mg/dL Ur Leukocyte [place] ase (Negative) SARS-CoV-2 Ag (Rap id) (Negative) Discharge Plan Discharge Patient Disposition: Home Clinical Impression: Peripheral positional vertigo, Hemoglobin decreased Condition: Stable Prescriptions: New meclizine 25 mg tablet,chewable 25 mg PO TID PRN (Reason: dizziness) Qty: 30 RF: 0 No Action amlodipine 5 mg tablet 5 mg PO DAILY RF: 0 aspirin [Adult Aspirin Regimen] 81 mg tablet,delayed release (DR/EC) 81 mg PO DAILY RF: 0 escitalopram oxalate 10 mg tablet 10 mg PO DAILY RF: 0 rosuvastatin [Crestor] 40 mg tablet 40 mg PO DAILY RF: 0 bupropion HCl 150 mg tablet extended release 24 hr 150 mg PO DAILY RF: 0 Dexilant 60 mg capsule,biphase delayed releas 60 mg PO DAILY RF: 0 calcium citrate-vitamin D3 1 tab PO DAILY RF: 0 ropinirole 0.5 mg tablet 0.5 mg PO BID RF: 0 hydromorphone 4 mg tablet 4 mg PO TID PRN (Reason: pain) 30 Days Qty: 90 RF: 0 carvedilol 6.25 mg tablet 6.25 mg PO BID Qty: 180 RF: 3 glipizide 10 mg tablet extended release 24hr 40 mg PO DAILY RF: 0 [place] 3 Fish Oil Concentrate 1,250 mg PO DAILY RF: 0 Zetia 10 mg tablet 10 mg PO DAILY RF: 0 Discharge Orders: Discharge ED (Routine); Ordered 01/22/21 Ordered By: Keith Reza Referrals: Dnea Mueller MD [Primary Care Provider] - (to recheck hemoglobin. concern for occult GI bleed) Discharge Diet: Usual diet Discharge Activity: Increase activity as tolerated Patient Instructions: Opioid Safety Activity Restrictions/Additional Instructions: Please be mindful of your hemoglobin drop. Is gone from 13.9-10.3 over the last several weeks. This likely represents an occult gastrointestinal bleed. Please follow-up with your primary care physician in roughly 1 to 2 weeks to recheck your blood levels. Please take the medicine as prescribed for your peripheral vertigo. Coding Level of Care Code ED Ratoprinter for [place] Fwd Exam Comprehensive
--- NOTE | 2021-01-21 21:09 | CTR_ITS ---
PROCEDURE INFORMATION: Exam: CT Head Without Contrast Exam date and time: 01/21/2021 9:09 PM Age: 66 years old Clinical indication: Pain; Headache; Patient HX: RIVERS with dizziness. TECHNIQUE: Imaging protocol: Computed tomography of the head without contrast. Radiation optimization: All CT scans at this facility use at least one of these dose optimization techniques: automated exposure control; mA and/or kV adjustment per patient size (includes targeted exams where dose is matched to clinical indication); or iterative reconstruction. COMPARISON: CT head wo con* [id number] 02/17/2018 1:48 AM RADIATION DOSE METRICS: Total DLP (mGy-cm): 825.87 FINDINGS: Brain: There is mild volume loss. There is mild periventricular white matter lucency consistent with chronic microvascular disease. Is no evidence of acute infarct. There is no hemorrhage or extra-axial collection. There is no mass. Cerebral ventricles: No ventriculomegaly. Paranasal sinuses: Visualized sinuses are unremarkable. No fluid levels. Mastoid air cells: Visualized mastoid air cells are well aerated. Bones/joints: Unremarkable. No acute fracture. Soft tissues: Unremarkable. CT/CT head wo con* [id number] IMPRESSION: 1. Mild chronic microvascular disease. 2. Acute intracranial lesion or injury and no change from prior scan Radiation Dose CTDIVOL = (mGy): DLP = 825.87 (mGy-cm)
[2021-01-21 22:18] VITALS: BP 118/69; BP 119/85; BP 129/73; PULSE 92; PULSE 93; PULSE 98
[2021-01-21 22:42] LABS: Add Urine Microscopic? NO; Charge for UA Resulting for Rev
[2021-01-21 22:45] LABS: Bilirubin Urine Neg (Negative); Blood Urine Neg (Negative); Glucose Urine UA Norm (Normal); Ketones Urine Negative (Negative); Leukocyte Esterase Urine Negative (Negative); Nitrate Urine Negative (Negative); Protein Urine Neg (Negative); Specific Gravity, Urine 1.015 (1.005-1.030); Urine Appearance Clear (CLEAR); Urine Color Yellow (Yellow); Urobilinogen Urine 4 mg/dL (Negative); pH Urine 6 (5-7)
[2021-01-21 23:15] VITALS: BP 129/87; PULSE 84; RESP 20; O2SAT 95
[2021-01-21 23:17] LABS: SARS Covid-2 Antigen Negative (Negative)
[2021-01-21 23:30] LABS: Basophils # 0.1 10^3/uL (0.0-0.1); Basophils % 0.5 %; Eosinophils # 0.1 10^3/uL (0.0-0.8); Eosinophils % 0.5 %; Hematocrit 34.6 % (37.0-47.0); Hemoglobin 10.3 g/dL (11.5-15.3); Lymphocytes # 2.6 10^3/uL (0.8-4.8); Lymphocytes % 23.1 %; Mean Corpuscular HGB Conc 29.8 g/dL (30.0-36.0); Mean Corpuscular Hemoglobin 29.7 pg (28.0-34.0); Mean Corpuscular Volume 99.7 fL (81-99); Mean Platelet Volume 9.4 fL (7.4-10.4); Monocytes # 1.2 10^3/uL (0.2-0.9); Monocytes % 10.2 %; Neutrophils # 7.42 10^3/uL (1.8-7.7); Neutrophils % 65.2 %; Nucleated Red Blood Cells % 0 %; Platelet Count 281 10^3/cmm (130-400); Red Blood Count 3.47 10^6/uL (4.1-5.3); Red Cell Distribution Width 12.6 % (12.1-15.1); White Blood Count 11.4 10^3/uL (4.0-10.0)
[2021-01-21] MEDS: sodium chloride 0.9% 1,000 ML 999 ML IV (23:30)
[2021-01-21] MEDS: meclizine 25 mg tablet PO (23:40)
[2021-01-21 23:52] LABS: INR 1.14 (0.8-1.2)
[2021-01-21 23:54] LABS: Partial Thromboplastin Time 30.4 SECONDS (23.9-36.7)
[2021-01-22 00:07] LABS: Alanine Aminotransferase < 5 U/L (0-33); Albumin Level 3.4 g/dL (3.5-5.2); Alkaline Phosphatase 105 IU/L (35-105); Anion Gap 12.9 (5-19); Aspartate Amino Transferase 9 U/L (0-32); Blood Urea Nitrogen 14 mg/dL (8-23); Calcium 8.9 mg/dL (8.5-10.5); Carbon Dioxide 26 mmol/L (22-29); Chloride 101 mmol/L (98-107); Globulin 3.5 g/dL (1.3-4.6); Glomerular Filtration Rate 49.8 mL/min (90-130); Glucose 124 mg/dL (65-115); Osmolality Calculated 284 mOsm/kg (285-295); Potassium 3.9 mmol/L (3.5-5.1); Sodium 136 mmol/L (136-145); Total Bilirubin 0.4 mg/dL (0.15-1.2); Total Protein 6.9 g/dL (6.6-8.7)
[2021-01-22 00:08] LABS: Creatinine Clr Calc Pharmacy 54.4844
[2021-01-22 00:11] LABS: NT Pro B Type Natriuretic Pept 200 pg/mL (0-125)
[2021-01-22 01:49] VITALS: BP 129/87; PULSE 84; RESP 18; O2SAT 98
== END 2021-01-22 01:40 | disposition home or self-care (01) ==
PROVIDERS: Emergency Provider Emergency Medicine; PCP Family Medicine
DX: H81.399 Other peripheral vertigo, unspecified ear (principal); D64.9 Anemia, unspecified; Z79.82 Long term (current) use of aspirin; Z79.84 Long term (current) use of oral hypoglycemic drugs; E11.9 Type 2 diabetes mellitus without complications; E78.5 Hyperlipidemia, unspecified; I10 Essential (primary) hypertension; Z87.891 Personal history of nicotine dependence; Z20.822 Contact with and (suspected) exposure to COVID-19
CPT/HCPCS: 70450; 71045; 80053; 81003; 83880; 85025; 85610; 85730; 87426; 93005; 96360; 99284; J7030; J8597

== ENCOUNTER → 2021-01-22 08:14 | Outpatient (BNVA) | payer MEDICARE, MEDICAID, SELFPAY | PROVIDERS: PCP Family Medicine; Visit Provider Anesthesiology | DX: G89.29 Other chronic pain (principal); M48.04 Spinal stenosis, thoracic region; Z79.891 Long term (current) use of opiate analgesic; Z87.891 Personal history of nicotine dependence | CPT/HCPCS: 99213 ==

== ENCOUNTER 2021-01-23 17:01 | Outpatient (CLI) | payer MEDICARE, MEDICAID, SELFPAY ==
--- NOTE | 2021-01-23 17:11 | CTR_ITS ---
PROCEDURE INFORMATION: Exam: CT Abdomen And Pelvis With Contrast Exam date and time: 01/23/2021 5:11 PM Age: 66 years old Clinical indication: Abdominal pain; Localized; Upper; Prior surgery; Surgery type: Back, gb; Additional info: Acute upper abd pain. Loose stools. Loss of appetite TECHNIQUE: Imaging protocol: Computed tomography of the abdomen and pelvis with contrast. Sagittal and coronal reformatted images were created and reviewed. Radiation optimization: All CT scans at this facility use at least one of these dose optimization techniques: automated exposure control; mA and/or kV adjustment per patient size (includes targeted exams where dose is matched to clinical indication); or iterative reconstruction. Contrast material: VISI 320; Contrast volume: 95 ml; Contrast route: INTRAVENOUS (IV); COMPARISON: CT Chest/Abdomen/Pelvis w IV* 08/31/2017 12:09 PM RADIATION DOSE METRICS: Total DLP (mGy-cm): 1680.55 FINDINGS: Lungs: Interval development of compressive atelectasis in the right and left lower lobes. Calcified granuloma in the the right middle lobe. Pleural spaces: Interval development of small bilateral pleural effusions. Heart: Interval development of a moderate pericardial effusion. Stable mild enlargement of the heart. Liver: The liver is unremarkable. Gallbladder and bile ducts: Stable findings consistent with a previous cholecystectomy. Few small retained biliary stones in the cystic duct remnant are stable. Dilatation of the biliary ducts, not unexpected in a patient who has had a prior cholecystectomy. Pancreas: Stable calcification in the tail of the pancreas. No pancreatic ductal dilatation. Spleen: The spleen is unremarkable. Adrenal glands: The right and left adrenal glands are unremarkable. Kidneys and ureters: Simple cyst in the right kidney measuring 1.8 cm. The left kidney is unremarkable. The right and left ureters are unremarkable. Stomach and bowel: No obstruction. No mucosal thickening. Appendix: The appendix is visualized and is unremarkable. No findings to suggest acute appendicitis. Intraperitoneal space: No free intraperitoneal air. Interval development of small volume ascites. No loculated fluid collections to suggest an abscess. Vasculature: Moderate atherosclerotic changes in the visualized arteries. No evidence for aortic aneurysm or aortic dissection. Lymph nodes: No lymphadenopathy. Urinary bladder: The bladder is incompletely filled, which can limit evaluation. No focal abnormality in the bladder however. Reproductive: The uterus, right ovary, and left ovary are unremarkable. Bones/joints: Bones are diffusely osteopenic. Moderate degenerative changes of the right and left sacroiliac joints. Moderate degenerative changes at both the right and left hips. Multilevel degenerative changes of varying severity in the visualized spine. Multiple old rib fractures bilaterally. Mild scoliosis in the visualized spine. Multiple old, moderate to severe compression deformities from T7 through L4. Kyphoplasty procedures at T7 and T8. Findings are stable. Soft tissues: Interval development of mild body wall edema. CT/CT abdomen pelvis w con* [id number] IMPRESSION: 1. Interval development of a moderate pericardial effusion. 2. Interval development of small volume ascites. 3. Interval development of mild body wall edema. 4. Interval development of small bilateral pleural effusions with compressive atelectasis in the right and left lower lobes. 5. Stable findings consistent with a previous cholecystectomy. Few small retained biliary stones in the cystic duct remnant are also stable. 6. Incidental/nonacute findings are listed in the report. COMMENTS: Consistent with the [employer]'s Incidental Findings Committee white paper (J Am Adi Radiol 2018): Any incidental renal lesion less than 1 cm or classified as too small to characterize, or any incidental cystic renal lesion characterized as simple-appearing, is likely benign. No follow-up imaging is recommended for these lesions per consensus recommendations based on imaging criteria. Radiation Dose CTDIVOL = (mGy): DLP = 1680.55 (mGy-cm)
[2021-01-23] MEDS: iodixanol 320 mg/mL 100mL Btl IV (17:25)
== END 2021-01-23 17:02 | disposition home or self-care (01) ==
LOC: RAD 17:04
PROVIDERS: PCP Family Medicine; Visit Provider Physician Assistant
DX: R10.9 Unspecified abdominal pain (principal)
CPT/HCPCS: 74177

== ENCOUNTER 2021-01-24 15:14 | Inpatient (IN) | payer MEDICARE, MEDICAID, SELFPAY ==
--- NOTE | 2021-01-24 15:18 | XRR_ITS ---
PROCEDURE INFORMATION: Exam: XR Chest Exam date and time: 01/24/2021 3:18 PM Age: 66 years old Clinical indication: Cough and shortness of breath; Additional info: SOB TECHNIQUE: Imaging protocol: XR of the chest. Views: 1 view. COMPARISON: CR XR chest 2V* [id number] 01/23/2021 3:45 PM FINDINGS: Lungs: Hazy opacification along the periphery of the right lung base. Pleural spaces: Small volume bilateral pleural effusions. Heart/Mediastinum: Mild diffuse vascular prominence. Mild cardiomegaly. Bones/joints: Rotator cuff suture anchor from prior rotator cuff repair noted in the left humeral head. Moderate DJD of the glenohumeral and acromioclavicular joints. Multilevel vertebroplasty material noted in the thoracic spine. XR/XR chest 1V portable [id number] IMPRESSION: 1. Cardiomegaly with mild diffuse pulmonary vascular congestion. Small bilateral pleural effusions. 2. Hazy opacification along the periphery of the right lung base, possibly secondary to atelectasis from the pleural effusion. This could represent pneumonia in the appropriate clinical setting.
[2021-01-24 15:56] VITALS: BP 127/83; PULSE 103; RESP 18; TEMP 37; O2SAT 96; BMI 41.9
[2021-01-24 17:23] LABS: Basophils # 0.1 10^3/uL (0.0-0.1); Basophils % 0.6 %; Eosinophils % 0.2 %; Hematocrit 35.9 % (37.0-47.0); Hemoglobin 10.8 g/dL (11.5-15.3); Lymphocytes # 2.1 10^3/uL (0.8-4.8); Lymphocytes % 16.5 %; Mean Corpuscular HGB Conc 30.1 g/dL (30.0-36.0); Mean Corpuscular Hemoglobin 29.5 pg (28.0-34.0); Mean Corpuscular Volume 98.1 fL (81-99); Mean Platelet Volume 9.3 fL (7.4-10.4); Monocytes # 1.1 10^3/uL (0.2-0.9); Monocytes % 8.7 %; Neutrophils # 9.42 10^3/uL (1.8-7.7); Neutrophils % 73.5 %; Nucleated Red Blood Cells % 0 %; Platelet Count 319 10^3/cmm (130-400); Red Blood Count 3.66 10^6/uL (4.1-5.3); Red Cell Distribution Width 12.7 % (12.1-15.1); White Blood Count 12.8 10^3/uL (4.0-10.0)
[2021-01-24 17:49] LABS: Troponin(5th) Baseline 8 ng/L (0-10)
[2021-01-24 17:57] LABS: Alanine Aminotransferase < 5 U/L (0-33); Albumin Level 3.4 g/dL (3.5-5.2); Alkaline Phosphatase 113 IU/L (35-105); Anion Gap 14.8 (5-19); Aspartate Amino Transferase 11 U/L (0-32); Blood Urea Nitrogen 12 mg/dL (8-23); Carbon Dioxide 25 mmol/L (22-29); Chloride 100 mmol/L (98-107); Globulin 3.6 g/dL (1.3-4.6); Glomerular Filtration Rate 62.8 mL/min (90-130); Glucose 150 mg/dL (65-115); NT Pro B Type Natriuretic Pept 290 pg/mL (0-125); Osmolality Calculated 285 mOsm/kg (285-295); Potassium 3.8 mmol/L (3.5-5.1); Sodium 136 mmol/L (136-145); Total Bilirubin 0.3 mg/dL (0.15-1.2)
[2021-01-24 19:33] LABS: Troponin 5 2HR 9.22 ng/L (0-10); Troponin 5 2HR Delta 1.22 ABS# (0-10)
--- NOTE | 2021-01-24 21:18 | ECG_ITS ---
[facility] Test Date: 2021-01-24 Pat Name: Griselda Manjarrez Department: Room: Gender: Female [place]: : [id number] Requested By: Amanda Zhong Order Number: [id number] Matilde MD: Nguyễn Edmondson M.D. Measurements Intervals [place] Rate: 102 P: 31 CO: 144 QRS: 9 QRSD: 84 T: 70 QT: 352 QTc: 459 Interpretive Statements SINUS TACHYCARDIA LOW QRS VOLTAGE IN PRECORDIAL LEADS [QRS DEFLECTION < 1.0 mV IN CHEST LEADS] ABNORMAL RHYTHM ECG Compared to ECG 01/21/2021 22:08:21 Sinus rhythm no longer present T-wave abnormality no longer present Electronically Signed On 01-26-2021 17:23:36 CDT by Nguyễn Edmondson M.D. [id number]
--- NOTE | 2021-01-24 22:01 | W.ED.SOB ---
HPI - SOB/Dyspnea General: Chief Complaint: Shortness of Breath/Dyspnea Stated Complaint: SOB/SENT BY PCP JESSICA YUN Time Seen by Provider: 01/24/21 22:00 History of Present Illness: HPI Narrative: 66-year-old female comes in today for complaints of increasing shortness of breath. Patient reports for last 3 weeks he has had some difficulty breathing. Patient did report a drop in her oxygen saturation at the clinic yesterday when she was up and ambulating. Patient was seen on the sixth and was diagnosed with no concerns. Patient then saw Jessica Yun in urgent care and was further evaluated and they found increasing pleural effusion and a mild pericardial effusion on a CT scan. Patient then was referred to the ER today for further evaluation. Patient reports no chest pain. Patient states that she is unable to walk but just very short distances due to their increase in shortness of breath. Patient does have a history of diabetes mellitus, positional vertigo, coronary artery disease, atherosclerosis, chronic kidney disease, and spinal stenosis. Review of Systems General: Reports: 10 or more systems reviewed and unremarkable except in HPI and below Resp: Reports: dyspnea PFSH ED PFSH: Medical History (Updated 01/25/21 @ 01:21 by ALBINO Alcala) Age related osteoporosis ASHD (arteriosclerotic heart disease) Chronic midline thoracic back pain CKD (chronic kidney disease) Controlled diabetes mellitus Diabetes Encounter for long-term (current) use of NSAIDs Encounter for long-term opiate analgesic use Generalized neuropathy Hyperlipidemia Hypertension MOLLY (obstructive sleep apnea) Osteoarthritis Spinal stenosis, thoracic region Surgical History Hx of carpal tunnel repair Hx of cholecystectomy Hx of knee surgery Hx of kyphoplasty Family History Other Cancer Hypertension Social History Smoking and tobacco status: former smoker Second hand smoke exposure: Yes Alcohol intake: never History of recent travel: No Physical Exam Const: COMMON NORMALS: no acute distress and patient oriented x3 GENERAL APPEARANCE: cooperative HENMT: COMMON NORMALS: normocephalic and Normal external nose present HEAD & SCALP: normal to inspection and normocephalic NOSE: Normal external nose present MOUTH: Normal oral and palatal mucosa present Eye: GENERAL EYE: appearance normal, both eyes and all related structures Neck/C-Spine: COMMON NORMALS: full ROM Chest: COMMONS NORMALS: normal inspection of the chest Resp: COMMON NORMALS: normal respiratory effort EFFORT & INSPECTION: Yes able to speak in complete sentences AUSCULTATION: diminished lung sounds Cardio: COMMON NORMALS: regular rate and regular rhythm RATE: regular rate RHYTHM: regular rhythm GI: COMMON NORMALS: non-tender Back/Pelvis: COMMON NORMALS: thoracic and lumbar spine normal to inspection Extremity: COMMON NORMALS: normal to inspection Neuro: COMMON NORMALS: patient oriented x3 and moves all extremities Psych: COMMON NORMALS: mental status grossly normal and cooperative Skin: COMMON NORMALS: no rashes or lesions noted GENERAL SKIN EXAM: no rashes or lesions noted Course ED course: 2229, discussed CT scan results with Dr. Coates, attending ER physician, he recommended that we do a echocardiogram for further evaluation. Discussed that patient has had increasing pleural effusion the right lower lung that was noted on the x-ray change for the last 2 days. He believes patient might need to be admitted for further treatment. 00 30, patient was ambulated and oxygen saturation was monitored showing a decrease to 95% but patient had increased dyspnea with chest pressure with exertion. I discussed with Dr. Phillips she agreed to evaluate the patient and consider observation admission. Vital Signs: Vital signs: Vital Signs Temperature 98.6 F 01/24/21 15:56 Pulse Rate 103 H 01/24/21 15:56 Respiratory Rate 18 01/24/21 15:56 Blood Pressure 127/83 01/24/21 15:56 Pulse Oximetry 96 01/24/21 15:56 MDM - SOB/Dyspnea MDM Narrative: Medical decision making narrative: Patient comes in today for continued difficulty with breathing and shortness of breath over the last 3 weeks. Patient was evaluated at the urgent care yesterday and was called this morning and told to follow-up in the emergency room due to concerns for a pleural effusion and a pericardial effusion. Patient reports her main concern is that she is having increasing difficulty with breathing and is unable to move around or walk significant distances due to her increasing shortness of breath. Lungs are decreased in the bases. Vital signs are unremarkable. Patient appears pink and warm and dry. Review of the chest x-ray from the sixth to the one today does note some increased shadowing in the right lower lung. Differential diagnosis includes but not limited to congestive heart failure, pericardial effusion of unknown etiology, ACS. Troponin was normal. Patient has some mild anemia on the CBC. CMP was unremarkable. Patient has worsening shortness of breath and chest x-ray did show some increase in the pleural effusion on the right lower lung. Patient went up and ambulate and has significant exertion and some chest discomfort but pulse oxygen does not drop below 90. I think that patient would benefit from observation and a echocardiogram. I discussed this with Dr. Coates who agreed to plan. Dr. Phillips was consulted for admission to hospital. Lab Data: Labs: Lab Results 01/24/21 01/24/21 01/24/21 Range/Units 17:11 17:11 17:11 WBC 12.8 H (4.0-10.0) 10^3/ uL RBC 3.66 L (4.1-5.3) 10^6/u L Hgb 10.8 L (11.5-15.3) g/dL Hct 35.9 L (37.0-47.0) % MCV 98.1 (81-99) fL MCH 29.5 (28.0-34.0) pg MCHC 30.1 (30.0-36.0) g/dL RDW 12.7 (12.1-15.1) % Plt Count 319 (130-400) 10^3/c mm MPV 9.3 (7.4-10.4) fL Neut % (Auto) 73.5 % Lymph % (Auto) 16.5 % [place] % (Auto) 8.7 % Eos % (Auto) 0.2 % Baso % (Auto) 0.6 % Neut # (Auto) 9.42 H (1.8-7.7) 10^3/u L Lymph # (Auto) 2.1 (0.8-4.8) 10^3/u L [place] # (Auto) 1.1 H (0.2-0.9) 10^3/u L Eos # (Auto) 0.0 (0.0-0.8) 10^3/u L Baso # (Auto) 0.1 (0.0-0.1) 10^3/u L Nucleated RBC % (a uto) 0 % Nucleated RBCs # 0.0 /100WBC Sodium 136 (136-145) mmol/L Potassium 3.8 (3.5-5.1) mmol/L Chloride 100 (98-107) mmol/L Carbon Dioxide 25 (22-29) mmol/L Anion Gap 14.8 (5-19) BUN 12 (8-23) mg/dL Creatinine 0.9 (0.5-0.9) mg/dL GFR Calculation 62.8 L (90-130) mL/min Glucose 150 H (65-115) mg/dL Calculated Osmolal ity 285 (285-295) mOsm/k g Calcium 9.0 (8.5-10.5) mg/dL Total Bilirubin 0.3 (0.15-1.2) mg/dL AST 11 (0-32) U/L ALT < 5 (0-33) U/L Alkaline Phosphata se 113 H (35-105) IU/L Troponin T Baselin e 8 (0-10) ng/L Troponin T 120 Min [place] (0-10) ng/L Delta Troponin T (0-10) ABS# Troponin T Hi Sens 6Hr (0-10) ng/L Troponin T Hi Sens 6Hr Delta (0-12) ng/L NT-Pro-B Natriuret Pep 290 H (0-125) pg/mL Total Protein 7.0 (6.6-8.7) g/dL Albumin 3.4 L (3.5-5.2) g/dL Globulin 3.6 (1.3-4.6) g/dL SARS-CoV-2 Ag (Rap id) (Negative) 01/24/21 01/24/21 01/24/21 Range/Units 19:09 22:50 23:10 WBC (4.0-10.0) 10^3/ uL RBC (4.1-5.3) 10^6/u L Hgb (11.5-15.3) g/dL Hct (37.0-47.0) % MCV (81-99) fL MCH (28.0-34.0) pg MCHC (30.0-36.0) g/dL RDW (12.1-15.1) % Plt Count (130-400) 10^3/c mm MPV (7.4-10.4) fL Neut % (Auto) % Lymph % (Auto) % [place] % (Auto) % Eos % (Auto) % Baso % (Auto) % Neut # (Auto) (1.8-7.7) 10^3/u L Lymph # (Auto) (0.8-4.8) 10^3/u L [place] # (Auto) (0.2-0.9) 10^3/u L Eos # (Auto) (0.0-0.8) 10^3/u L Baso # (Auto) (0.0-0.1) 10^3/u L Nucleated RBC % (a uto) % Nucleated RBCs # /100WBC Sodium (136-145) mmol/L Potassium (3.5-5.1) mmol/L Chloride (98-107) mmol/L Carbon Dioxide (22-29) mmol/L Anion Gap (5-19) BUN (8-23) mg/dL Creatinine (0.5-0.9) mg/dL GFR Calculation (90-130) mL/min Glucose (65-115) mg/dL Calculated Osmolal ity (285-295) mOsm/k g Calcium (8.5-10.5) mg/dL Total Bilirubin (0.15-1.2) mg/dL AST (0-32) U/L ALT (0-33) U/L Alkaline Phosphata se (35-105) IU/L Troponin T Baselin e (0-10) ng/L Troponin T 120 Min [place] 9.22 (0-10) ng/L Delta Troponin T 1.22 (0-10) ABS# Troponin T Hi Sens 6Hr 9.14 (0-10) ng/L Troponin T Hi Sens 6Hr Delta 1.14 (0-12) ng/L NT-Pro-B Natriuret Pep (0-125) pg/mL Total Protein (6.6-8.7) g/dL Albumin (3.5-5.2) g/dL Globulin (1.3-4.6) g/dL SARS-CoV-2 Ag (Rap id) Negative (Negative) EKG Data^: EKG 1: Attestation: I personally reviewed and interpreted this EKG as follows: (7, EKG shows a sinus tachycardia with a regular rate at [address] elevation or ectopy is noted at this time. No prior exam is noted for comparison at this time.) Discharge Plan Discharge Patient Disposition: Placed in Observation Admit Provider: Leigh Ann Phillips Clinical Impression: Pericardial effusion, Pleural effusion, PINEDA (dyspnea on exertion) Coding Level of Care Code ED Violin Teacher for Chg Fwd Exam Comprehensive
[2021-01-24 23:44] LABS: Troponin 5 6HR 9.14 ng/L (0-10); Troponin 5 6HR Delta 1.14 ng/L (0-12)
[2021-01-24] MEDS: FUROsemide 10 mg/mL SDV 4mL 40 MG IVP (23:46)
[2021-01-25] VITALS (9 sets, daily range): BP systolic 100–132; BP diastolic 68–85; PULSE 62–110; RESP 17–18; TEMP 36.6–37; O2SAT 93–97
[2021-01-25 00:31] LABS: SARS Covid-2 Antigen Negative (Negative)
[2021-01-25 03:14] LABS: Add Urine Microscopic? NO; Charge for UA Resulting for Rev
[2021-01-25 03:36] LABS: Glucose Urine UA Norm (Normal); Protein Urine Neg (Negative); Urine Appearance Clear (CLEAR); Urine Color Yellow (Yellow); pH Urine 5 (5-7)
[2021-01-25 03:37] LABS: Bilirubin Urine Neg (Negative); Blood Urine Neg (Negative); Ketones Urine 1+ (Negative); Leukocyte Esterase Urine Negative (Negative); Nitrate Urine Negative (Negative); Urobilinogen Urine Norm (Negative)
--- NOTE | 2021-01-25 03:44 | PM.HP ---
Providers/Chief Complaint Admitting Physician: Leigh Ann Phillips MD Primary Care Provider: Dena Mueller MD Chief Complaint: SOB/SENT BY PCP JESSICA YUN History of Present Illness Griselda Manjarrez is a 66 year old female who was sent to the emergency room by [facility] due to findings on a CT of the abdomen and pelvis from January 23 combined with shortness of breath/dyspnea on exertion. Patient was originally seen in the emergency room on January 21 with dizziness and a cough. Dizziness was severe enough that it felt like she was going to fall anytime she tried to walk around. Did not report any fevers. Indicates that she was short of breath then but not as bad as presently. She had work-up to include laboratory studies that showed a drop in her hemoglobin from last year when it was 13 to 10. Denies any gross blood loss. I believe this is what led to the CT of the abdomen and pelvis being done though not certain. Other work-up included CT of the head that showed mild chronic microvascular changes but no acute intracranial lesion or change from prior study. Chest x-ray was unremarkable. She was seen in pain clinic on January 22 with complaints of back pain, fatigue, myalgias and muscle weakness, some of which are chronic. Her pain medications were refilled. She saw Dr. Concepcion also on the for painful callus formation. She was seen at [facility] and had another chest x-ray and CT of the abdomen and pelvis done on January 23. Oxygen saturations evidently dropped in the clinic when she was ambulating but were okay at rest. CT of the abdomen results came back today showing pleural effusions and pericardial effusion so she was sent to the ER to be further evaluated. She states that she has gotten to where she cannot walk very far without becoming very short of breath, not more than a few steps. She denies orthopnea or PND. Has not had lower extremity edema or calf pain. Denies any pleuritic type chest pain or hemoptysis. No nausea or diaphoresis. Has not had palpitations. Has not had something like this before. She denied abdominal pain, vomiting or diarrhea. She does have a history of coronary artery disease that was identified on angiogram some years ago. Disease was described as mild according to Dr. Hooker's most recently available note. Troponins with delta value in the emergency room were unremarkable and EKG showed sinus tachycardia at 102 bpm without any acute ST segment changes. BNP was 290. She did receive a dose of Lasix. She had no evidence of exertional hypoxia but continues to have significant dyspnea with minimal exertion. Given her persistent and significant symptoms she is being admitted for further evaluation. Review of Systems Const: Reports: fatigue and malaise; Denies: fever(s), chills, change in appetite or change in weight ENMT: Reports: disequilibrium, nasal congestion and sinus pain; Denies: throat pain Card: Reports: lightheadedness; Denies: chest pain, palpitations, edema or syncope Resp: Reports: dyspnea, productive cough, non-productive cough and chest congestion; Denies: pain on inspiration or hemoptysis GI: Denies: abdominal pain, nausea, vomiting, diarrhea or constipation : Denies: difficulty voiding Musc: Reports: back pain (chronic) and extremity pain (chronic); Denies: joint redness Skin/Breast: Denies: rash, pruritus or sores Neuro: Reports: headache(s), numbness in extremities (and tingling, not new), weakness in extremities (bilateral) and difficulty walking (uses cane, worse laely due to symptoms) Psych: Denies: anxiety Medications/Allergies Home Medications Medication Instructions Recorded Confirmed Last Taken Type amlodipine 5 mg tablet 5 mg PO DAILY 09/06/19 01/25/21 01/20/21 08:00 History aspirin 81 mg tablet,delayed 81 mg PO DAILY 09/06/19 01/25/21 01/20/21 08:00 History release bupropion HCl 150 mg 24 hr tablet, 150 mg PO DAILY 09/06/19 01/25/21 01/20/21 08:00 History extended release calcium citrate-vitamin D3 1 tab PO DAILY 09/06/19 01/25/21 01/20/21 08:00 History [Calcium Citrate + D] dexlansoprazole 60 mg 60 mg PO DAILY 09/06/19 01/25/21 01/20/21 08:00 History capsule,biphase delayed release escitalopram oxalate 10 mg tablet 10 mg PO DAILY 09/06/19 01/25/21 01/20/21 08:00 History rosuvastatin 40 mg tablet 40 mg PO DAILY 09/06/19 01/25/21 01/20/21 08:00 History carvedilol 6.25 mg tablet 6.25 mg PO BID #180 tab 12/04/19 01/25/21 01/20/21 08:00 Rx ropinirole 0.5 mg tablet 0.5 mg PO BID 11/28/20 01/25/21 01/20/21 08:00 History [place] 3 Fish Oil Concentrate 1,250 mg PO DAILY 01/21/21 01/25/21 01/20/21 08:00 History ezetimibe [Zetia] 10 mg PO DAILY 01/21/21 01/25/21 01/04/21 08:00 History glipizide 40 mg PO DAILY 01/21/21 01/25/21 01/20/21 08:00 History Diabetic Shoes #1 ea 01/22/21 01/25/21 01/20/21 08:00 Rx hydromorphone 4 mg tablet 4 mg PO TID PRN 30 Days #90 tab 01/22/21 01/25/21 01/20/21 08:00 Rx meclizine 25 mg PO TID PRN #30 tab 01/22/21 01/25/21 01/20/21 08:00 Rx Allergies Allergy/AdvReac Type Severity Reaction Status Date / Time alendronate sodium Allergy Unknown Verified 01/22/21 11:09 [From Fosamax] atorvastatin [From Lipitor] Allergy Unknown Verified 01/22/21 11:09 codeine Allergy Unknown Verified 01/22/21 11:09 duloxetine [From Cymbalta] Allergy Unknown Verified 01/22/21 11:09 methylprednisolone Allergy Unknown Verified 01/22/21 11:09 Sulfa (Sulfonamide Allergy Unknown Verified 01/22/21 11:09 Antibiotics) PFSH Acute PFSH: Medical History (Updated 01/25/21 @ 06:45 by Leigh Ann Phillips MD) Age related osteoporosis ASHD (arteriosclerotic heart disease) Chronic midline thoracic back pain CKD (chronic kidney disease) Controlled diabetes mellitus Diabetes Encounter for long-term (current) use of NSAIDs Encounter for long-term opiate analgesic use Generalized neuropathy Hyperlipidemia Hypertension MOLLY (obstructive sleep apnea) Osteoarthritis Spinal stenosis, thoracic region Surgical History Hx of carpal tunnel repair Hx of cholecystectomy Hx of knee surgery Hx of kyphoplasty Family History Other Cancer Hypertension Social History Smoking and tobacco status: former smoker Second hand smoke exposure: Yes Alcohol intake: never History of recent travel: No Vitals/I&O/Wt Last Vital Signs Temp 98.4 F 01/25/21 03:22 Pulse 110 H 01/25/21 03:22 Resp 18 01/25/21 03:22 BP 132/81 01/25/21 03:22 Pulse Ox 96 01/25/21 03:22 Weight last 48 hrs Weight 100.698 kg Physical Exam Narrative: EXAM NARRATIVE: Constitutional: Awake and alert, able to provide history HEENT: Normocephalic, atraumatic, pupils are reactive, nasopharynx with clear rhinorrhea, some facial tenderness persist, oropharynx is clear Neck: Large but supple Respiratory: Clear to auscultation bilaterally without any rales rhonchi or wheezes noted Cardiovascular: Regular rate and rhythm, no murmurs, no rubs Abdomen: Soft, nontender, positive bowel sounds Extremities: Trace edema, various old joint surgical incisions noted Skin: Dry, no rashes or large bruises Neuro: Speech clear, face symmetric, moves all extremities Psych: Normal affect Data : 01/25/21 05:35 01/24/21 17:11 CT Abd/Pel: Radiologist's impression: FROM 01/23/2021 FINDINGS: Lungs: Interval development of compressive atelectasis in the right and left lower lobes. Calcified granuloma in the the right middle lobe. Pleural spaces: Interval development of small bilateral pleural effusions. Heart: Interval development of a moderate pericardial effusion. Stable mild enlargement of the heart. Liver: The liver is unremarkable. Gallbladder and bile ducts: Stable findings consistent with a previous cholecystectomy. Few small retained biliary stones in the cystic duct remnant are stable. Dilatation of the biliary ducts, not unexpected in a patient who has had a prior cholecystectomy. Pancreas: Stable calcification in the tail of the pancreas. No pancreatic ductal dilatation. Spleen: The spleen is unremarkable. Adrenal glands: The right and left adrenal glands are unremarkable. Kidneys and ureters: Simple cyst in the right kidney measuring 1.8 cm. The left kidney is unremarkable. The right and left ureters are unremarkable. Stomach and bowel: No obstruction. No mucosal thickening. Appendix: The appendix is visualized and is unremarkable. No findings to suggest acute appendicitis. Intraperitoneal space: No free intraperitoneal air. Interval development of small volume ascites. No loculated fluid collections to suggest an abscess. Vasculature: Moderate atherosclerotic changes in the visualized arteries. No evidence for aortic aneurysm or aortic dissection. Lymph nodes: No lymphadenopathy. Urinary bladder: The bladder is incompletely filled, which can limit evaluation. No focal abnormality in the bladder however. Reproductive: The uterus, right ovary, and left ovary are unremarkable. Bones/joints: Bones are diffusely osteopenic. Moderate degenerative changes of the right and left sacroiliac joints. Moderate degenerative changes at both the right and left hips. Multilevel degenerative changes of varying severity in the visualized spine. Multiple old rib fractures bilaterally. Mild scoliosis in the visualized spine. Multiple old, moderate to severe compression deformities from T7 through L4. Kyphoplasty procedures at T7 and T8. Findings are stable. Soft tissues: Interval development of mild body wall edema. CT/CT abdomen pelvis w con* [id number] IMPRESSION: 1. Interval development of a moderate pericardial effusion. 2. Interval development of small volume ascites. 3. Interval development of mild body wall edema. 4. Interval development of small bilateral pleural effusions with compressive atelectasis in the right and left lower lobes. 5. Stable findings consistent with a previous cholecystectomy. Few small retained biliary stones in the cystic duct remnant are also stable. 6. Incidental/nonacute findings are listed in the report. 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: without buttermilk drier operator use Diabetes mellitus complication status: without complication Qualified Code(s): E11.9 - Type 2 diabetes mellitus without complications (8) Generalized neuropathy: Status: Chronic (9) Chronic midline thoracic back pain: Status: Chronic (10) Spinal stenosis, thoracic region: Status: Chronic Additional A&P Information Recent sinus symptoms and vertigo Observation admission for now Echocardiogram Check D-dimer Consider CTA of the chest Diuresis Pending results of above may want to consider stress test, either inpatient or outpatient Continue home aspirin, beta-blockade, Zetia Sliding scale insulin presently for diabetes PPI Continue home pain medications Monitor renal function with diuresis and contrast Check lipid panel and A1c for risk stratification Flonase for sinus symptoms Has been tested for Covid 3 days in a row and negative Supportive care otherwise Lovenox for DVT prophylaxis Anticipate discharge home when stable Encouraged her to get her CPAP adjusted so that she could use it at night as prescribed, relating that untreated sleep apnea over time will contribute to pulmonary hypertension and subsequent CHF and respiratory symptoms, even symptoms such as what she is presenting with now Findings, concerns and plans discussed with patient and she was given an opportunity to ask questions Full code Attestations Medical Necessity Statement*: Currently anticipate a stay less than 2 midnights inpatient with dyspnea on minimal exertion who is maintaining oxygen saturations. Plans are as indicated. Coding Level of Care Code Acute Hot Room Attendant for g Fwd Diagnoses PINEDA (dyspnea on exertion) R06.00 Pericardial effusion I31.3 Pleural effusion J90 ASHD (arteriosclerotic heart disease) I25.10 Hypertension I10 Hypertension type: essential hypertension MOLLY (obstructive sleep apnea) G47.33 Controlled diabetes mellitus E11.9 Diabetes mellitus type: type 2 Diabetes mellitus senior living insulin use: without senior living use Diabetes mellitus complication status: without complication Generalized neuropathy G62.9 Chronic midline thoracic back pain M54.6; G89.29 Spinal stenosis, thoracic region M48.04
[2021-01-25] MEDS: enoxaparin 40 mg/0.4 mL Syringe SUBCUT (04:50)
--- NOTE | 2021-01-25 06:00 | USCV_ITS ---
Griselda Manjarrez Age: 66 Gender: F : 1955 Exam Date: 01/25/2021 06:52 Ordering Phys: Randall Schaefer Technologist: Katerni Rios Exam Location: [facility] – [place] Indication: Pericardial effusion on CT BP: 100 / 68 HR: 101 Rhythm: Sinus Technical Quality: Technically difficult study MEASUREMENTS (Male / Female) Normal Values 2D ECHO LV Diastolic Diameter PLAX 3.3 cm 4.2 - 5.9 / 3.9 - 5.3 cm LV Systolic Diameter PLAX 1.9 cm LV Chamber Size 2.6 cm IVS Diastolic Thickness 1.5 cm 0.6 - 1.0 / 0.6 - 0.9 cm IVS Systolic Thickness 2.6 cm LVPW Diastolic Thickness 1.3 cm 0.6 - 1.0 / 0.6 - 0.9 cm LVPW Systolic Thickness 1.5 cm RV Chamber Size 1.9 cm LVOT Diameter 2.0 cm LV Ejection Fraction 2D Teich 72.7 % LV Ejection Fraction MOD 2C 58.0 % LV Ejection Fraction 2C AL 57.7 % LA Diameter 2.9 cm LA Width 1.8 cm LA Height 4.7 cm RA Width 2.7 cm RA Height 4.2 cm Aorta at Sinotubular Diameter 2.0 cm M-MODE LV Diastolic Diameter MM 5.0 cm 4.2 - 5.9 / 3.9 - 5.3 cm LV Systolic Diameter MM 3.9 cm LV Ejection Fraction MM Teich 44.2 % IVS Diastolic Thickness MM 1.6 cm 0.6 - 1.0 / 0.6 - 0.9 cm IVS Systolic Thickness MM 1.7 cm LVPW Diastolic Thickness MM 1.3 cm 0.6 - 1.0 / 0.6 - 0.9 cm LVPW Systolic Thickness MM 1.8 cm RV Diastolic Diameter MM 1.5 cm Aortic Annulus Diameter 3.6 cm LA Ao Ratio MM 0.8 DOPPLER AV Peak Velocity 155.0 cm/s LVOT Peak Velocity 93.0 cm/s AV Area Cont Eq vti 2.6 cm squared AV Area Cont Eq pk 2.0 cm squared MV Area PHT 3.7 cm squared Mitral E to A Ratio 0.7 MV E' Velocity 31.0 cm/s Mitral E to MV E' Ratio 8.8 Mitral E to LV E' Lateral Ratio 6.9 Mitral E to LV E' Septal Ratio 12.5 TV Peak E Velocity 31.0 cm/s Right Atrial Pressure 8.0 mmHg PV Peak Velocity 75.0 cm/s RV Acceleration Time 0.1 s RV Ejection Time 0.2 s RV AcT/ET 0.3 FINDINGS Left Ventricle Normal left ventricular size. LV systolic function is normal with EF of 55-60%. No regional wall motion abnormalities. Grade 1 diastolic dysfunction. Right Ventricle The right ventricle is normal in size and function. Right Atrium The right atrium is normal in size. Left Atrium The left atrium is normal in size. Mitral Valve Structurally normal mitral valve without significant stenosis or prolapse. There is no mitral regurgitation. Aortic Valve Aortic valve is calcified. No significant stenosis. There is mild to moderate aortic regurgitation. Tricuspid Valve Structurally normal tricuspid valve without significant stenosis or regurgitation. Insufficient TR jet to calculate RVSP Pulmonic Valve Structurally normal pulmonic valve without significant stenosis. There is no pulmonic regurgitation. Pericardium Moderate sized pericardial effusion is noted Aorta Normal ascending aorta dimension. CONCLUSIONS LV systolic function is normal with EF of 55-60% Grade 1 diastolic dysfunction Mild to moderate aortic regurgitation Moderate sized pericardial effusion is present Compared to prior echocardiogram from 03/02/2016, moderate sized pericardial effusion is now present. Diastolic dysfunction is now seen. Nguyễn Edmondson MD (Electronically Signed) Final Date: 25 January 2021 15:04 S
[2021-01-25 06:04] LABS: Basophils # 0.1 10^3/uL (0.0-0.1); Basophils % 0.4 %; Eosinophils # 0.1 10^3/uL (0.0-0.8); Eosinophils % 0.4 %; Hematocrit 35.3 % (37.0-47.0); Hemoglobin 10.7 g/dL (11.5-15.3); Lymphocytes # 2.3 10^3/uL (0.8-4.8); Lymphocytes % 20.9 %; Mean Corpuscular HGB Conc 30.3 g/dL (30.0-36.0); Mean Corpuscular Hemoglobin 29.9 pg (28.0-34.0); Mean Corpuscular Volume 98.6 fL (81-99); Mean Platelet Volume 9.7 fL (7.4-10.4); Monocytes # 1.3 10^3/uL (0.2-0.9); Monocytes % 11.2 %; Neutrophils # 7.45 10^3/uL (1.8-7.7); Neutrophils % 66.6 %; Nucleated Red Blood Cells % 0 %; Platelet Count 295 10^3/cmm (130-400); Red Blood Count 3.58 10^6/uL (4.1-5.3); Red Cell Distribution Width 12.8 % (12.1-15.1); White Blood Count 11.2 10^3/uL (4.0-10.0)
[2021-01-25 06:14] LABS: INR 1.22 (0.8-1.2)
[2021-01-25 06:15] LABS: Partial Thromboplastin Time 27.3 SECONDS (23.9-36.7)
[2021-01-25 06:17] LABS: D Dimer 2.95 ug/mIFEU (0-0.59)
[2021-01-25 06:34] LABS: Creatine Phosphokinase 41 U/L (26-192); Magnesium 2.2 mg/dL (1.7-2.3); Thyroid Stimulating Hormone 2.23 uIU/mL (0.27-4.20)
[2021-01-25 06:35] LABS: Estmated Average Glucose 157; Hemoglobin A1C 7.1 % (4.0-6.0)
--- NOTE | 2021-01-25 07:08 | CTR_ITS ---
PROCEDURE INFORMATION: Exam: CTA Chest With Contrast Exam date and time: 01/25/2021 7:08 AM Age: 66 years old Clinical indication: Shortness of breath; Additional info: Severe key, elevated d dimer TECHNIQUE: Imaging protocol: Computed tomographic angiography of the chest with contrast. 3D rendering (Not supervised by radiologist): MIP and/or 3D reconstructed images were created by the technologist. Radiation optimization: All CT scans at this facility use at least one of these dose optimization techniques: automated exposure control; mA and/or kV adjustment per patient size (includes targeted exams where dose is matched to clinical indication); or iterative reconstruction. Contrast material: OMNI 350; Contrast volume: 79 ml; Contrast route: INTRAVENOUS (IV); COMPARISON: CT Chest/Abdomen/Pelvis w IV* 08/31/2017 12:09 PM RADIATION DOSE METRICS: Total DLP (mGy-cm): 528.5 FINDINGS: Pulmonary arteries: Normal. No pulmonary emboli. Aorta: Unremarkable. No aortic aneurysm. No aortic dissection. Lungs: Unremarkable. No consolidation. No masses. Pleural spaces: Interval appearance of mild bilateral pleural fluid collections. Heart: Interval appearance of moderate pericardial fluid and/or thickening with cardiac tamponade compared to the previous exam. Previous heart diameter of 13.5 cm is now 9.6 cm consistent with cardiac tamponade. Stable severe calcified coronary artery disease. Lymph nodes: Unremarkable. No enlarged lymph nodes. Bones/joints: Low density bone consistent with osteopenia/osteoporosis. Multiple chronic appearing compression fractures throughout the thoracic spine. Soft tissues: Unremarkable. Other findings: One or more thoracic vertebroplasties. CT/CT angio chest PE protcl [id number] IMPRESSION: 1. Interval appearance of mild bilateral pleural fluid collections. 2. Interval appearance of moderate pericardial fluid and/or thickening with cardiac tamponade compared to the previous exam. 3. Stable severe calcified coronary artery disease. 4. No pulmonary embolus or aortic dissection. Radiation Dose CTDIVOL = (mGy): DLP = 528.5 (mGy-cm)
[2021-01-25] MEDS: FUROsemide 10 mg/mL SDV 4mL 20 MG IVP (08:38)
[2021-01-25] MEDS: aspirin 81 mg EC Tablet PO (08:41)
[2021-01-25] MEDS: buPROPion XL (24 HR) 150 mg Tablet PO (08:41)
[2021-01-25] MEDS: ropinirole 0.25 mg Tablet 0.5 MG PO ×2 (08:42→18:48)
[2021-01-25] MEDS: potassium chloride ER 10 mEq Tablet PO (08:43)
[2021-01-25] MEDS: escitalopram 10 mg Tablet PO (08:43)
[2021-01-25] MEDS: carvedilol 6.25 mg Tablet PO ×2 (08:43→18:48)
[2021-01-25] MEDS: pantoprazole DR 40 mg Tablet PO (09:00)
[2021-01-25] MEDS: ezetimibe 10 mg Tablet PO (09:00)
[2021-01-25 09:35] LABS: Glucose Point of Care 312 mg/dL (70-110)
[2021-01-25] MEDS: iohexol 350 mg/mL 100 mL Btl IV (10:58)
[2021-01-25 12:06] LABS: Glucose Point of Care 201 mg/dL (70-110)
[2021-01-25] MEDS: pneumococcal (23 valent) SDV 0.5 mL IM (12:16)
--- NOTE | 2021-01-25 20:00 | P.PN_ITS ---
Subjective Subjective: Interval history: Patient was seen and examined this morning. Shortness of breath with exertion has improved with IV Lasix. Though she is complaining of chest tightness with exertion. Her other vitals and labs have been reviewed Medications: Reviewed: Yes Vitals/I&O/Wt Last Vital Signs Temp 98.4 F 01/25/21 19:55 Pulse 97 01/25/21 19:55 Resp 17 01/25/21 19:55 BP 116/82 01/25/21 19:55 Pulse Ox 95 01/25/21 19:55 01/25/21 01/25/21 01/25/21 06:59 14:59 22:59 Intake Total 240 / 240 600 / 600 240 / 840 Balance 240 / 240 600 / 600 240 / 840 Weight last 48 hrs Weight 98.747 kg Weight 100.698 kg Physical Exam Const: COMMON NORMALS: patient oriented x3 HENMT: COMMON NORMALS: normocephalic and atraumatic HEAD & SCALP: normocephalic and atraumatic Chest: CHEST: Yes Symmetrical chest wall rise Resp: OTHER: Diminshed air entry ant bases. Cardio: COMMON NORMALS: regular rate, regular rhythm, S1 normal heart sound present, S2 normal heart sound present, No gallops present (Cardio), No murmurs present (Cardio), No rub (Cardio) and Peripheral pulses 2+ throughout RATE: regular rate RHYTHM: regular rhythm HEART SOUNDS: S1 normal heart sound present and S2 normal heart sound present PERIPHERAL PULSES: Peripheral pulses 2+ throughout GI: COMMON NORMALS: Normal to inspection, nondistended, normoactive bowel s ounds present, Soft to palpation, non-tender, No hepatosplenomegaly present and no masses AUSCULTATION: Yes normoactive bowel sounds PALPATION: Yes Soft to palpation and Yes No hepatosplenomegaly present RECTAL EXAM: deferred Extremity: COMMON NORMALS: no clubbing, cyanosis or edema and no pedal edema Neuro: COMMON NORMALS: patient oriented x3 Data : 01/25/21 05:35 01/24/21 17:11 A&P Assessment and plan (1) Pericardial effusion: Pericardial effusion:Without tamponade physiology. 2D Echo: Moderate sized pericardial effusion is present EKG : Classic finding of electrical alternan is absent. Though sinus tachycardia and low voltage QRS is present. [place] Traid is absent Currently etiology is unkown.Given the fact that she has Severe R/A and in the presence of Pleural effusion, R/A could be a possible culprit.Management will include better R/A Control as well as Diuresis. Continue Lasix 40 mg IV daily Repeat 2D echo in 2 weeks to assess the severity of effusion. Status: Acute (2) PINEDA (dyspnea on exertion): Patient is complaining of chest tightness as well as severe dyspnea on exertion. Old stress test and CAG in the past has revealed mild coronary artery disease. Patient will likely benefit from repeat outpatient stress test. Status: Acute (3) Pleural effusion: Mild bilateral pleural fluid collections. Continue IV Lasix. 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 Diabetes mellitus complication status: without complication Qualified Code(s): E11.9 - Type 2 diabetes mellitus without complications (8) Generalized neuropathy: Status: Chronic (9) Chronic midline thoracic back pain: Status: Chronic (10) Spinal stenosis, thoracic region: Status: Chronic Additional A&P Information Recent sinus symptoms and vertigo Echocardiogram: Check D-dimer CTA of the chest: Diuresis Pending results of above may want to consider stress test, either inpatient or outpatient Continue home aspirin, beta-blockade, Zetia Sliding scale insulin presently for diabetes PPI Continue home pain medications Monitor renal function with diuresis and contrast Check lipid panel and A1c for risk stratification Flonase for sinus symptoms Has been tested for Covid 3 days in a row and negative Supportive care otherwise Lovenox for DVT prophylaxis Anticipate discharge home when stable Encouraged her to get her CPAP adjusted so that she could use it at night as prescribed, relating that untreated sleep apnea over time will contribute to pulmonary hypertension and subsequent CHF and respiratory symptoms, even symptoms such as what she is presenting with now Findings, concerns and plans discussed with patient and she was given an opportunity to ask questions Full code Attestations Medical Necessity Statement*: Patient needs to be in hospital for management of dyspnea on exertion pericardial effusion pleural effusion. Coding Level of Care Code Acute Low Vision Therapist for [place] Fwd Diagnoses Pericardial effusion I31.3 PINEDA (dyspnea on exertion) R06.00 Pleural effusion J90 ASHD (arteriosclerotic heart disease) I25.10 Hypertension I10 Hypertension type: essential hypertension MOLLY (obstructive sleep apnea) G47.33 Controlled diabetes mellitus E11.9 Diabetes mellitus type: type 2 Diabetes mellitus care home insulin use: without oil heaterman use Diabetes mellitus complication status: without complication Generalized neuropathy G62.9 Chronic midline thoracic back pain M54.6; G89.29 Spinal stenosis, thoracic region M48.04
[2021-01-25 20:14] LABS: Glucose Point of Care 185 mg/dL (70-110)
[2021-01-25 20:14] LABS: Glucose Point of Care 201 mg/dL (70-110)
[2021-01-25 20:14] LABS: Glucose Point of Care 225 mg/dL (70-110)
[2021-01-25] MEDS: benzonatate 100 mg Capsule 200 MG PO (22:35)
[2021-01-26] VITALS (8 sets, daily range): BP systolic 98–120; BP diastolic 66–80; PULSE 82–105; RESP 15–22; TEMP 36.4–36.9; O2SAT 95–97
[2021-01-26] MEDS: guaiFENesin 100 mg/5 mL UDC 10 mL 200 MG PO (04:02)
[2021-01-26] MEDS: enoxaparin 40 mg/0.4 mL Syringe SUBCUT (04:03)
[2021-01-26] MEDS: FUROsemide 10 mg/mL SDV 4mL 40 MG IVP (06:15)
[2021-01-26 06:34] LABS: Glucose Point of Care 189 mg/dL (70-110)
[2021-01-26 06:41] LABS: Anion Gap 13.4 (5-19); Blood Urea Nitrogen 19 mg/dL (8-23); Calcium 8.6 mg/dL (8.5-10.5); Carbon Dioxide 26 mmol/L (22-29); Chloride 98 mmol/L (98-107); Glomerular Filtration Rate 49.8 mL/min (90-130); Glucose 146 mg/dL (65-115); Osmolality Calculated 283 mOsm/kg (285-295); Potassium 3.4 mmol/L (3.5-5.1); Sodium 134 mmol/L (136-145)
[2021-01-26] MEDS: ropinirole 0.25 mg Tablet 0.5 MG PO ×2 (10:58→18:13)
[2021-01-26] MEDS: carvedilol 6.25 mg Tablet PO ×2 (10:59→18:13)
[2021-01-26] MEDS: potassium chloride ER 10 mEq Tablet PO (10:59)
[2021-01-26] MEDS: buPROPion XL (24 HR) 150 mg Tablet PO (10:59)
[2021-01-26] MEDS: pantoprazole DR 40 mg Tablet PO (10:59)
[2021-01-26] MEDS: ezetimibe 10 mg Tablet PO (10:59)
[2021-01-26] MEDS: escitalopram 10 mg Tablet PO (10:59)
[2021-01-26] MEDS: aspirin 81 mg EC Tablet PO (10:59)
[2021-01-26 11:13] LABS: Glucose Point of Care 290 mg/dL (70-110)
--- NOTE | 2021-01-26 16:08 | P.PN_ITS ---
Subjective Subjective: Interval history: Patient shortness of breath has improved with IV diuresis.Her Medications: Reviewed: Yes Vitals/I&O/Wt Last Vital Signs Temp 98.1 F 01/26/21 15:42 Pulse 105 H 01/26/21 15:42 Resp 18 01/26/21 15:42 BP 112/78 01/26/21 15:42 Pulse Ox 96 01/26/21 15:42 01/26/21 01/26/21 01/26/21 06:59 14:59 22:59 Intake Total 480 / 1320 600 / 600 920 / 1520 Output Total 850 / 850 900 / 1750 Balance 480 / 1320 -250 / -250 20 / -230 Weight last 48 hrs Weight 100.834 kg Weight 98.747 kg Physical Exam Const: COMMON NORMALS: patient oriented x3 HENMT: COMMON NORMALS: normocephalic and atraumatic HEAD & SCALP: normocephalic and atraumatic Chest: CHEST: Yes Symmetrical chest wall rise Resp: OTHER: Diminshed air entry ant bases. Cardio: COMMON NORMALS: regular rate, regular rhythm, S1 normal heart sound present, S2 normal heart sound present, No gallops present (Cardio), No murmurs present (Cardio), No rub (Cardio) and Peripheral pulses 2+ throughout RATE: regular rate RHYTHM: regular rhythm HEART SOUNDS: S1 normal heart sound present and S2 normal heart sound present PERIPHERAL PULSES: Peripheral pulses 2+ throughout GI: COMMON NORMALS: Normal to inspection, nondistended, normoactive bowel sounds present, Soft to palpation, non-tender, No hepatosplenomegaly present and no masses AUSCULTATION: Yes normoactive bowel sounds PALPATION: Yes Soft to palpation and Yes No hepatosplenomegaly present RECTAL EXAM: deferred Extremity: COMMON NORMALS: no clubbing, cyanosis or edema and no pedal edema Neuro: COMMON NORMALS: patient oriented x3 Data : 01/25/21 05:35 01/26/21 04:55 A&P Assessment and plan (1) Pericardial effusion: Pericardial effusion:Without tamponade physiology. 2D Echo: Moderate sized pericardial effusion is present.LV systolic function is normal with EF of 55-60%.Grade 1 diastolic dysfunction.Mild to moderate aortic regurgitation. CTA Chest :Interval appearance of mild bilateral pleural fluid collections.Interval appearance of moderate pericardial fluid and/or thickening with cardiac tamponade compared to the previous exam. No pulmonary embolus or aortic dissection. EKG : Classic finding of electrical alternan is absent. Though ekg shows sinus tachycardia and low voltage QRS is present. [place] Traid is absent Currently etiology is unkown. Continue Lasix 40 mg IV daily Repeat 2D echo in 2 weeks to assess the severity of effusion. Continue to follow Cardiology as outpatient. ( is her [employer] ) Status: Acute (2) PINEDA (dyspnea on exertion): Patient is complaining of chest tightness as well as severe dyspnea on exertion. Old stress test and CAG in the past has revealed mild coronary artery disease. ( 2013 ) Given the fact that the patient has significant shortness of breath on minimal exertion.She has been scheduled for a stress test tomorrow in the morning. Status: Acute (3) Pleural effusion: Mild bilateral pleural fluid collections. Continue IV Lasix. Pulmonary follow as an outpatient. Status: Acute (4) ASHD (arteriosclerotic heart disease): Status: Chronic (5) Hypertension: Status: Chronic Qualifiers: Hypertension type: essential hypertension Qualified Code(s): I10 - Essential (primary) hypertension (6) MOLLY (obstructive sleep apnea): Status: Chronic (7) Controlled diabetes mellitus: Status: Chronic Qualifiers: Diabetes mellitus complication status: without complication Diabetes mellitus residential insulin use: without residential use Diabetes mellitus type: type 2 Qualified Code(s): E11.9 - Type 2 diabetes mellitus without complications (8) Generalized neuropathy: Status: Chronic (9) Chronic midline thoracic back pain: Status: Chronic (10) Spinal stenosis, thoracic region: Status: Chronic (11) Osteogenesis imperfecta: Status: Acute Additional A&P Information Recent sinus symptoms and vertigo Echocardiogram: Check D-dimer CTA of the chest: Diuresis Pending results of above may want to consider stress test, either inpatient or outpatient Continue home aspirin, beta-blockade, Zetia Sliding scale insulin presently for diabetes PPI Continue home pain medications Monitor renal function with diuresis and contrast Check lipid panel and A1c for risk stratification Flonase for sinus symptoms Has been tested for Covid 3 days in a row and negative Supportive care otherwise Lovenox for DVT prophylaxis Anticipate discharge home when stable Encouraged her to get her CPAP adjusted so that she could use it at night as prescribed, relating that untreated sleep apnea over time will contribute to pulmonary hypertension and subsequent CHF and respiratory symptoms, even symptoms such as what she is presenting with now Findings, concerns and plans discussed with patient and she was given an opportunity to ask questions Full code Attestations Medical Necessity Statement*: Patient needs to be in the hospital for the management of Significant PINEDA r/o underlying worsening CAD, due for stress test in am. Coding Level of Care Code Acute Transplant Worker for g Fwd Exam Detailed Diagnoses Pericardial effusion I31.3 PINEDA (dyspnea on exertion) R06.00 Pleural effusion J90 ASHD (arteriosclerotic heart disease) I25.10 Hypertension I10 Hypertension type: essential hypertension MOLLY (obstructive sleep apnea) G47.33 Controlled diabetes mellitus E11.9 Diabetes mellitus complication status: without complication Diabetes mellitus residential insulin use: without residential use Diabetes mellitus type: type 2 Generalized neuropathy G62.9 Chronic midline thoracic back pain M54.6; G89.29 Spinal stenosis, thoracic region M48.04 Osteogenesis imperfecta Q78.0
[2021-01-26 17:50] LABS: Glucose Point of Care 231 mg/dL (70-110)
[2021-01-26] MEDS: benzonatate 100 mg Capsule 200 MG PO (18:13)
[2021-01-26 20:34] LABS: Glucose Point of Care 245 mg/dL (70-110)
[2021-01-27] VITALS (8 sets, daily range): BP systolic 105–143; BP diastolic 76–88; PULSE 79–94; RESP 12–18; TEMP 36.3–36.8; O2SAT 92–97
[2021-01-27] MEDS: calcium carbonate 500 mg Chew Tablet 1000 MG PO (00:14)
[2021-01-27] MEDS: ondansetron 2 mg/ML SDV 2 mL 4 MG IVP (00:22)
[2021-01-27] MEDS: enoxaparin 40 mg/0.4 mL Syringe SUBCUT (04:46)
[2021-01-27 04:55] LABS: Basophils # 0.1 10^3/uL (0.0-0.1); Basophils % 0.7 %; Eosinophils # 0.1 10^3/uL (0.0-0.8); Eosinophils % 0.5 %; Hematocrit 35.3 % (37.0-47.0); Hemoglobin 10.8 g/dL (11.5-15.3); Lymphocytes # 2.8 10^3/uL (0.8-4.8); Lymphocytes % 26.4 %; Mean Corpuscular HGB Conc 30.6 g/dL (30.0-36.0); Mean Corpuscular Hemoglobin 30.3 pg (28.0-34.0); Mean Corpuscular Volume 98.9 fL (81-99); Mean Platelet Volume 9.8 fL (7.4-10.4); Monocytes # 1.1 10^3/uL (0.2-0.9); Monocytes % 10.6 %; Neutrophils # 6.55 10^3/uL (1.8-7.7); Neutrophils % 61.3 %; Nucleated Red Blood Cells % 0 %; Platelet Count 327 10^3/cmm (130-400); Red Blood Count 3.57 10^6/uL (4.1-5.3); Red Cell Distribution Width 12.9 % (12.1-15.1); White Blood Count 10.7 10^3/uL (4.0-10.0)
[2021-01-27 05:19] LABS: Anion Gap 13.6 (5-19); Blood Urea Nitrogen 23 mg/dL (8-23); Calcium 8.4 mg/dL (8.5-10.5); Carbon Dioxide 28 mmol/L (22-29); Chloride 97 mmol/L (98-107); Glomerular Filtration Rate 41.1 mL/min (90-130); Glucose 140 mg/dL (65-115); Osmolality Calculated 286 mOsm/kg (285-295); Potassium 3.6 mmol/L (3.5-5.1); Sodium 135 mmol/L (136-145)
[2021-01-27 06:19] LABS: Glucose Point of Care 171 mg/dL (70-110)
[2021-01-27] MEDS: FUROsemide 10 mg/mL SDV 4mL 40 MG IVP ×2 (06:32→18:15)
--- NOTE | 2021-01-27 06:36 | ECG_ITS ---
[facility] Test Date: 2021-01-27 Pat Name: Griselda Manjarrez Department: Room: 252 Gender: Female Emr Trainer: : 1955 Requested By: Hermes Fernandez Order Number: [id number] Matilde MD: Carli Reyes M.D. Interpretive Statements NAME OF STUDY: LEXISCAN SESTAMIBI STRESS TEST INDICATION: Shortness of Breath PROCEDURE: At the baseline, the blood pressure was 146/80 mmHg, oxygen saturation 97% with a heart rate of 85 bpm. The electrocardiogram showed normal sinus rhythm, normal axis. Low QRS voltage in precordial leads. Nonspecific ST-T wave changes. The Lexiscan was infused over a period of 20 seconds. A total of 0.4 milligrams of Lexiscan was infused. The stress phase was continued for a total of 5 minutes. Heart rate at the end of the stress phase was 90 bpm, oxygen saturation 96% with a blood pressure of 141/81 mmHg. The EKG at the peak infusion revealed no significant ST-T wave changes. The study was terminated due to protocol completion. Sestamibi was injected 20 seconds after the Lexiscan infusion. Blood pressure at the end of the recovery phase was 143/83 mmHg, oxygen saturation 95% with a heart rate of 91 beats per minute. CONCLUSION: 1. No significant EKG changes with the LexiScan infusion. 2. No LexiScan induced chest pain or cardiac arrhythmia. 3. Normal blood pressure and heart rate response. 4. Sestamibi/sestamibi perfusion scan pending; see separate report. Electronically Signed On 01-27-2021 13:04:38 CDT by Carli Reyes M.D. [id number]
[2021-01-27] MEDS: regadenoson 0.4 Mg/5 ml Syringe IVP (07:55)
[2021-01-27] MEDS: buPROPion XL (24 HR) 150 mg Tablet PO (09:53)
[2021-01-27] MEDS: pantoprazole DR 40 mg Tablet PO (09:53)
[2021-01-27] MEDS: ezetimibe 10 mg Tablet PO (09:53)
[2021-01-27] MEDS: escitalopram 10 mg Tablet PO (09:53)
[2021-01-27] MEDS: carvedilol 6.25 mg Tablet PO ×2 (09:53→18:17)
[2021-01-27] MEDS: aspirin 81 mg EC Tablet PO (09:53)
[2021-01-27] MEDS: ropinirole 0.25 mg Tablet 0.5 MG PO ×2 (09:53→18:16)
[2021-01-27] MEDS: potassium chloride ER 10 mEq Tablet PO (09:53)
--- NOTE | 2021-01-27 10:22 | NMCV_ITS ---
NM timothy perf SPECT r/s* [id number] Loki Griselda Age: 66 Gender: F : 1955 Exam Date: 01/27/2021 10:22 Ordering Phys: Hermes Fernandez MD Technologist: FANNIE Ruffin Exam Location: [facility] Indications: SOB STRESS TEST Please see separate stress test report in [facility] for full findings IMAGE PROTOCOL Rest/Stress 1 Lexiscan Day Radiopharmaceutical Dose (mCi) Administration Site Administered by Rest: Tc-99m 10.9 IV FANNIE Salter Sestamibi Stress:Tc-99m 32.9 IV FANNIE Salter Sestamibi Rest: 27-Jan-2021 60 Discovery 630 Stress: 27-Jan-2021 30 Discovery 630 0.4mg Lexiscan. Supine position only as patient was unable to lay prone. SPECT RESULTS Technical Quality: Good Raw Data Analysis: Breast attenuation Image Corrections: No attenuation or motion correction applied Summed Stress Score: 0 Summed Rest Score: 0 Summed Difference Score: 0 PERFUSION FINDINGS SPECT images demonstrate homogeneous tracer distribution throughout the myocardium. FUNCTIONAL RESULTS (calculated via Gated SPECT) Stress Image LV EF (%): 68 Stress EDV (mL):56 TID: 0.9 Stress ESV (mL):18 FUNCTIONAL FINDINGS: There is normal left ventricular systolic function. IMPRESSIONS 1. Normal myocardial perfusion imaging without evidence of ischemia 2. LV systolic function is normal Nguyễn Edmondson MD (Electronically Signed) Final Date: 27 January 2021 09:52 S
[2021-01-27 11:09] LABS: Glucose Point of Care 203 mg/dL (70-110)
--- NOTE | 2021-01-27 15:27 | P.PN_ITS ---
Subjective Subjective: Interval history: Overnight, the patient had a nuclear medicine stress test that was deemed negative. She no longer endorses shortness of breath & cough, and states that her chest tightness, which was very prominent at the time of admission, has improved.she also states that whereas, when she was admitted, she could not walk a few steps to the bathroom at home, she can now walk a few steps to the bathroom here without shortness of breath. Denies any CP, palpitations, but endorses dizziness, which she attributes to vertigo. She states that she has a history of vertigo, and she had not had in a while, until she had the symptoms of dyspnea and chest tightness. She states that the meclizine prescribed for her improved her symptoms greatly. Vitals/I&O/Wt Last Vital Signs Temp 98.2 F 01/27/21 11:19 Pulse 90 01/27/21 11:19 Resp 16 01/27/21 11:19 BP 115/78 01/27/21 11:19 Pulse Ox 92 01/27/21 11:19 01/27/21 01/27/21 01/27/21 06:59 14:59 22:59 Intake Total 360 / 360 Output Total 200 / 2850 Balance -200 / -850 360 / 360 Weight last 48 hrs Weight 101.015 kg Weight 100.834 kg Physical Exam Const: COMMON NORMALS: alert GENERAL APPEARANCE: cooperative and comfortable NUTRITIONAL APPEARANCE: overweight ORIENTATION/CONSCIOUSNESS: Yes oriented to person, Yes oriented to place and Yes oriented to time HENMT: COMMON NORMALS: normocephalic, atraumatic, external ears normal and Normal external nose present HEAD & SCALP: normocephalic and atraumatic FA CE & SINUS: normal facial exam NOSE: Normal external nose present EXTERNAL EAR: Yes external ears normal MOUTH: Normal oral and palatal mucosa present THROAT: posterior oropharynx normal Eye: COMMON NORMALS: Equal, round and reactive pupils present and conjunctivae normal CONJUNCTIVA: Yes conjunctivae normal PUPIL: Yes Equal, round and reactive pupils present EOM: No EOM abnormal Neck/C-Spine: COMMON NORMALS: Thyroid normal GENERAL: Yes trachea midline and No lymphadenopathy THYROID: Thyroid normal Resp: COMMON NORMALS: clear to auscultation bilaterally AUSCULTATION: clear to auscultation bilaterally, no rales, no rhonchi and no wheezes Cardio: COMMON NORMALS: regular rate and regular rhythm RATE: regular rate RHYTHM: regular rhythm HEART SOUNDS: no click, no gallops, no murmurs and no rubs GI: COMMON NORMALS: Soft to palpation and No hepatosplenomegaly present AUSCULTATION: Yes normoactive bowel sounds PALPATION: Yes Soft to palpation, No Firmness to palpation present (GI), No Tenderness to palpation present (GI), No Guarding due to palpation present (GI) and Yes No hepatosplenomegaly present Extremity: COMMON NORMALS: no clubbing, cyanosis or edema Neuro: SENSORIUM/ORIENTATION: Yes alert, Yes oriented to person, Yes oriented to place and Yes oriented to time CRANIAL NERVES: Yes CN normal except as noted GAIT: Yes Assistive device used cane SENSORY EXAM: Yes Normal double simultaneous stimulation for sensation MOTOR EXAM: 5/5 motor strength present throughout Psych: COMMON NORMALS: speech normal SPEECH: Yes normal speech MOOD & AFFECT: Yes euthymic mood Skin: COMMON NORMALS: no rashes or lesions noted GENERAL SKIN EXAM: no rashes or lesions noted Data : 01/27/21 04:16 01/27/21 04:16 A&P Assessment and plan (1) Pericardial effusion: Status: Acute (2) Pleural effusion: Status: Acute (3) Hypertension: Status: Chronic Qualifiers: Hypertension type: essential hypertension Qualified Code(s): I10 - Essential (primary) hypertension (4) ASHD (arteriosclerotic heart disease): Status: Chronic (5) Controlled diabetes mellitus: Status: Chronic Qualifiers: Diabetes mellitus complication status: without complication Diabetes mellitus custodial insulin use: without custodial use Diabetes mellitus type: type 2 Qualified Code(s): E11.9 - Type 2 diabetes mellitus without complications (6) Peripheral positional vertigo: Status: Acute (7) Osteogenesis imperfecta: Status: Acute (8) MOLLY (obstructive sleep apnea): Status: Chronic (9) CKD (chronic kidney disease): Status: Chronic Qualifiers: Chronic kidney disease stage: stage 3 (moderate) Chronic kidney disease stage 3 subtype: stage 3a (GFR 45-59) Qualified Code(s): N18.31 - Chronic kidney disease, stage 3a (10) Generalized neuropathy: Status: Chronic (11) Chronic midline thoracic back pain: Status: Chronic (12) Spinal stenosis, thoracic region: Status: Chronic Ms. Manjarrez is a 89yo woman w/ CAD, HTN, HLD, and non-IDDM2, who presented to the ED on 01/25/2021 with complaints of dyspnea on exertion. Her CXR showed cardiomegaly with diffuse pulmonary vascular congestion and small bilateral pleural effusions. There was concern for right lower lobe pneumonia. A CTA of the chest/Abd/pelvis was done that showed moderate pericardial fluid and thickening with concern for cardiac tamponade, but there was no signs of a PE or aortic dissection. Her BNP was 290. She was admitted for further evaluation. A TTE was done that showed an EF of 35 to 60% with Grade 1 diastolic dysfxn, mild to moderate aortic regurgurgitation, and a moderate sided pericardial effusion. Her COVID-19 test in the ED was negative. A nuclear medicine stress test was done on 01/25/2021, which was deemed negative. She was given 2 doses of Lasix 40 mg IVP starting on 01/26/2021, which improved her symptoms. Her pattern scratcher, Dr. Hooker, was consulted. # Moderate B/l pericardiac effuison: # b/l small Pleural effusions - Unclear cause. COVID-19 test is negative. Trop T was wnl. Her BNP was not elevated. Symptoms improved with Lasix. - F/u repeat CXR. Cardiology consulted for further Recs. PT ordered to evaluate improvement of her dyspnea. - Remember to d/c Potassium chloride # Vertigo - hx - On Meclizine prn at home. # non-IDDM2 -A1c of 7.1. Continue sliding scale insulin w/ BG monitoring # On ropinirole - for RLS? #CAD #HTN #HLD - On home Carvedilol, Ezetemibe, Colerain 3 fish oil, & ROsuvastatin. Amlodiopine held. # GERD: On PRototonix here # Mood d/o vs Anxeity - On Lexapro, Bupropion. DVT ppx: Lovenox Attestations Medical Necessity Statement*: The patient requires continuous hospitalization due to her pericardial effusion and dyspneic symptoms. Coding Level of Care Code Acute Sheet Manufacturing Supervisor for Chg Fwd Exam Comprehensive Diagnoses Pericardial effusion I31.3 Pleural effusion J90 Hypertension I10 Hypertension type: essential hypertension ASHD (arteriosclerotic heart disease) I25.10 Controlled diabetes mellitus E11.9 Diabetes mellitus complication status: without complication Diabetes mellitus custodial insulin use: without custodial use Diabetes mellitus type: type 2 Peripheral positional vertigo H81.399 Osteogenesis imperfecta Q78.0 MOLLY (obstructive sleep apnea) G47.33 CKD (chronic kidney disease) N18.31 Chronic kidney disease stage: stage 3 (moderate) Chronic kidney disease stage 3 subtype: stage 3a (GFR 45-59) Generalized neuropathy G62.9 Chronic midline thoracic back pain M54.6; G89.29 Spinal stenosis, thoracic region M48.04
--- NOTE | 2021-01-27 15:35 | P.CONIM_ITS ---
Providers/Reason For Consult Consulting Physician/Specialty*: Alcides Hooker MD/cardiology Reason for Consult*: Patient with a CHF and pericardial effusion Attending Physician: Roxana Castellon MD Primary Care Provider: Dena Mueller MD History of Present Illness History of Present Illness Griselda Manjarrez is a 66 year old female, is submitted the hospital with complaints of slow progressive shortness of breath, recent weight gain and CT evidence of moderate pericardial effusion with a small pleural effusion and small volume ascites. She had some features of diastolic heart failure. She had a myocardial perfusion imaging today which was unremarkable for ischemia. Cardiology consult is requested for further cardiac evaluation recommendations. Patient is known to have mild coronary disease by angiogram many years ago. She had a myocardial perfusion imaging in 2012 which was unremarkable. She also is known to have high blood pressure, dyslipidemia, obstructive sleep apnea, type 2 diabetes and obesity. According the patient, she was in her baseline state of health up until 2 weeks ago when he started having some shortness of breath which started getting worse. For a week or so, she was also having poor appetite associated with nausea. She noticed that the abdomen is getting tense with increasing girth. She was seen by her primary care provider at the [facility]. Subsequent CT of the abdomen/pelvis revealed at least moderate pericardial effusion. She is admitted to hospital for further evaluation and management. Since the hospital admission, the patient was treated with IV diuretics. She has significant improvement of the symptoms. However she continues to have some abdominal distention and dyspnea on exertion. She may have had some low-grade fever at home. She also been having a cough for the last 1 month or so. She has no unusual back pains or any chest pains. No dysuria. No hematemesis or melena. Review of Systems Narrative: CONSTITUTIONAL: No fever or chills. EYES: No blurring of vision or other visual disturbances lately. ENT: No hoarseness of voice, auditory disturbances or sore throat. CARDIOVASCULAR: As mentioned above. RESPIRATORY: As of breath and cough as mentioned above. GASTROINTESTINAL: Nausea and poor appetite as mentioned above GENITOURINARY: No dysuria or hematuria. INTEGUMENTARY: No skin rashes or history of skin cancer. NEURO: Has been having some amount of dizziness and unsteadiness for couple of days prior to the hospital admission PSYCHIATRIC: No history of psychosis or major depression. HEMATOLOGIC: No bleeding disorders or significant anemia. ENDOCRINE: Stable type 2 diabetes MUSCULOSKELETAL: No recent joint pain or swelling. ALLERGY/IMMUNOLOGY: As mentioned above. Meds/Allergies Home Medications and Allergies Home Medications Medication Instructions Recorded Confirmed Last Taken Type amlodipine 5 mg tablet 5 mg PO DAILY 09/06/19 01/25/21 01/20/21 08:00 History aspirin 81 mg tablet,delayed 81 mg PO DAILY 09/06/19 01/25/21 01/20/21 08:00 History release bupropion HCl 150 mg 24 hr tablet, 150 mg PO DAILY 09/06/19 01/25/21 01/20/21 08:00 History extended release calcium citrate-vitamin D3 1 tab PO DAILY 09/06/19 01/25/21 01/20/21 08:00 History [Calcium Citrate + D] dexlansoprazole 60 mg 60 mg PO DAILY 09/06/19 01/25/21 01/20/21 08:00 History capsule,biphase delayed release escitalopram oxalate 10 mg tablet 10 mg PO DAILY 09/06/19 01/25/21 01/20/21 08:00 History rosuvastatin 40 mg tablet 40 mg PO DAILY 09/06/19 01/25/21 01/20/21 08:00 History carvedilol 6.25 mg tablet 6.25 mg PO BID #180 tab 12/04/19 01/25/21 01/20/21 08:00 Rx ropinirole 0.5 mg tablet 0.5 mg PO BID 11/28/20 01/25/21 01/20/21 08:00 History [place] 3 Fish Oil Concentrate 1,250 mg PO DAILY 01/21/21 01/25/21 01/20/21 08:00 History ezetimibe [Zetia] 10 mg PO DAILY 01/21/21 01/25/21 01/04/21 08:00 History glipizide 40 mg PO DAILY 01/21/21 01/25/21 01/20/21 08:00 History Diabetic Shoes #1 ea 01/22/21 01/25/21 01/20/21 08:00 Rx hydromorphone 4 mg tablet 4 mg PO TID PRN 30 Days #90 tab 01/22/21 01/25/21 01/20/21 08:00 Rx meclizine 25 mg PO TID PRN #30 tab 01/22/21 01/25/21 01/20/21 08:00 Rx Allergies Allergy/AdvReac Type Severity Reaction Status Date / Time alendronate sodium Allergy Unknown Verified 01/22/21 11:09 [From Fosamax] atorvastatin [From Lipitor] Allergy Unknown Verified 01/22/21 11:09 codeine Allergy Unknown Verified 01/22/21 11:09 duloxetine [From Cymbalta] Allergy Unknown Verified 01/22/21 11:09 methylprednisolone Allergy Unknown Verified 01/22/21 11:09 Sulfa (Sulfonamide Allergy Unknown Verified 01/22/21 11:09 Antibiotics) Current Medications Current Medications Generic Name Dose Route Start Last Admin Trade Name Freq PRN Reason Stop Dose Admin Aspirin 81 mg 01/25/21 09:00 01/27/21 09:53 Aspirin 81 Mg Ec Tablet PO 81 mg DAILY STEPHANY Administration Benzonatate 200 mg 01/25/21 21:59 01/26/21 18:13 Benzonatate 100 Mg Capsule PO 200 mg TID PRN Administration COUGH Bupropion HCl 150 mg 01/25/21 09:00 01/27/21 09:53 Bupropion Xl (24 Hr) 150 Mg Tablet PO 150 mg DAILY STEPHANY Administration Calcium Carbonate 1,000 mg 01/25/21 03:45 01/27/21 00:14 Calcium Carbonate 500 Mg Chew Tablet PO 1,000 mg Q4H PRN Administration DYSPEPSI Carvedilol 6.25 mg 01/25/21 09:00 01/27/21 09:53 Carvedilol 6.25 Mg Tablet PO 6.25 mg BID STEPHANY Administration Ezetimibe 10 mg 01/25/21 09:00 01/27/21 09:53 Ezetimibe 10 Mg Tablet PO 10 mg DAILY STEPHANY Administration Enoxaparin Sodium 40 mg 01/25/21 03:45 01/27/21 04:46 Enoxaparin 40 Mg/0.4 Ml Syringe SUBCUT 40 mg Q24H STEPHANY Administration Escitalopram Oxalate 10 mg 01/25/21 09:00 01/27/21 09:53 Escitalopram 10 Mg Tablet PO 10 mg DAILY STEPHANY Administration Guaifenesin 200 mg 01/25/21 22:00 01/26/21 04:02 Guaifenesin 100 Mg/5 Ml Udc 10 Ml PO 200 mg Q4H PRN Administration COUGH AND CONGESTION Hydromorphone HCl 4 mg 01/25/21 03:48 01/26/21 18:13 Hydromorphone 4 Mg Tablet PO 4 mg TID PRN Administration SEVERE PAIN Insulin Aspart 0 unit 01/25/21 21:00 01/26/21 21:44 Insulin Aspart 100 Unit/1 Ml SUBCUT 3 unit BEDTIME STEPHANY Administration Protocol Insulin Aspart 0 unit 01/25/21 08:00 01/27/21 12:59 Insulin Aspart 100 Unit/1 Ml SUBCUT 4 unit TIDWM STEPHANY Administration Protocol Non-Formulary 0 each 01/25/21 09:00 01/27/21 09:54 Medication - Crestor PO Not Given 40 Mg DAILY STEPHANY Ondansetron HCl 4 mg 01/25/21 03:45 01/27/21 00:22 Ondansetron 2 Mg/Ml Sdv 2 Ml IVP 4 mg Q8H PRN Administration vomiting, or N/V if npo Pantoprazole Sodium 40 mg 01/25/21 09:00 01/27/21 09:[address] 40 Mg Tablet PO 40 mg DAILY STEPHANY Administration Potassium Chloride 10 meq 01/25/21 09:00 01/27/21 09:53 Potassium Chloride Er 10 Meq Tablet PO 10 meq DAILY STEPHANY Administration Ropinirole HCl 0.5 mg 01/25/21 09:00 01/27/21 09:53 Ropinirole 0.25 Mg Tablet PO 0.5 mg BID STEPHANY Administration PFSH Acute PFSH: Medical History (Updated 01/27/21 @ 17:27 by Hitesh Hooker MD) Age related osteoporosis ASHD (arteriosclerotic heart disease) Chronic midline thoracic back pain CKD (chronic kidney disease) Controlled diabetes mellitus Diabetes Encounter for long-term (current) use of NSAIDs Encounter for long-term opiate analgesic use Generalized neuropathy Hyperlipidemia Hypertension MOLLY (obstructive sleep apnea) Osteoarthritis Spinal stenosis, thoracic region Surgical History Hx of carpal tunnel repair Hx of cholecystectomy Hx of knee surgery Hx of kyphoplasty Family History Other Cancer Hypertension Social History Smoking and tobacco status: former smoker Second hand smoke exposure: Yes Alcohol intake: never History of recent travel: No Vitals/I&O/Wt Last Vital Signs Temp 98.2 F 01/27/21 11:19 Pulse 90 01/27/21 11:19 Resp 16 01/27/21 11:19 BP 115/78 01/27/21 11:19 Pulse Ox 92 01/27/21 11:19 01/27/21 01/27/21 01/27/21 06:59 14:59 22:59 Intake Total 360 / 360 Output Total 200 / 2850 Balance -200 / -850 360 / 360 Weight last 48 hrs Weight 222 lb 11.2 oz Weight 222 lb 4.8 oz Physical Exam Narrative: EXAM NARRATIVE: GENERAL: The patient is alert and oriented times three. Not in any acute distress. HEENT: No significant pallor, icterus or lymphadenopathy. The pupils are vertical oral cavity: There are no mucous membrane lesions. Funduscopic examination: The disk margins appear to be sharp with no exudates or hemorrhages. NECK: Trachea appears to be central. No masses noted. No JVD or thyromegaly appreciated. No carotid bruit. RESPIRATORY: Chest is symmetrical. No intercostals muscle retraction or any accessory muscle activation. There is no chest wall tenderness. Breath sounds are heard bilaterally. No rales or rhonchi heard. No evidence of any consolidation. BREASTS: Deferred. HEART: The PMI could not be palpated. No palpable precordial events. S1 and S2 are normal. No S3 or S4 heard. No pericardial rub or any click heard. ABDOMEN: Abdomen is obese, slightly distended. Bowel sounds are normally heard. No rebound tenderness. : Deferred. RECTAL: Deferred. LYMPHATIC: No lymphadenopathy noted in the neck or groin. EXTREMITIES: Trace edema with no cyanosis. Peripheral pulses are palpable in fairly good volume. Musculoskeletal: No acute joint deformities or swelling SKIN: There are no significant scars or skin rash noted. NEUROPSYCHIATRIC: The patient is alert and oriented x3. Appears to be in a good mood. The higher functions are grossly within normal limits. No tremors or rigidity noted. Data Imaging^: Echo: My impression: 1LV systolic function is normal with EF of 55-60% Grade 1 diastolic dysfunction Mild to moderate aortic regurgitation Moderate sized pericardial effusion is present Compared to prior echocardiogram from 03/02/2016, moderate sized pericardial effusion is now present. Diastolic dysfunction is now seen. CT Chest: My impression: 01/25/2021 1. Interval appearance of mild bilateral pleural fluid collections. 2. Interval appearance of moderate pericardial fluid and/or thickening with cardiac tamponade compared to the previous exam. 3. Stable severe calcified coronary artery disease. 4. No pulmonary embolus or aortic dissection. CXR: My impression: 1. Cardiomegaly with mild diffuse pulmonary vascular congestion. Small bilateral pleural effusions. 2. Hazy opacification along the periphery of the right lung base, possibly secondary to atelectasis from the pleural effusion. This could represent pneumonia in the appropriate clinical setting. Other Imaging: My impression: Myocardial perfusion imaging from today No evidence of ischemia A&P Assessment and plan (1) Diastolic heart failure of unknown etiology: The patient has clinical features of mild diastolic heart failure. No evidence of ischemia, based on the perfusion scan. Blood pressure is in the normal range. May continue careful diuresis. I may give an extra dose of Lasix tonight Status: Acute (2) Pericardial effusion: The etiology of the pericardial effusion is not clear at this time. Even though heart failure could be contributing factor, the extent of pericardial effusion seems to be out of proportion to the heart failure. Need to look into other etiologies. Iin view of the recent anemia,? low-grade fever and anorexia, infective/inflammatory/malignant etiologies cannot be excluded. Patient may benefit from a diagnostic as well as therapeutic pericardiocentesis. Status: Acute (3) MOLLY (obstructive sleep apnea): Status: Chronic (4) ASHD (arteriosclerotic heart disease): Patient had a mild coronary disease of angiogram many years ago. Had a perfusion scan from today reveals no evidence of ischemia. At this point, she may not require any specific intervention. Status: Chronic (5) Hyperlipidemia: Continue on the current medications. Status: Acute Qualifiers: Hyperlipidemia type: other hyperlipidemia Qualified Code(s): E78.49 - Other hyperlipidemia (6) Ascites: sMALL Volume ascites Status: Acute Qualifiers: Ascites type: other type Qualified Code(s): R18.8 - Other ascites (7) Anemia: ETIOLOGY? Status: Acute Qualifiers: Anemia type: unspecified type Qualified Code(s): D64.9 - Anemia, unspecified Additional A&P Information I may go ahead and restart Lasix 40 mg now along with potassium 20 mEq p.o. If your shortness of breath continues to improve, may discharge home tomorrow. She will be encouraged to ambulate on the telemetry. 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
--- NOTE | 2021-01-27 15:35 | XRR_ITS ---
PROCEDURE INFORMATION: Exam: XR Chest Exam date and time: 01/27/2021 3:35 PM Age: 66 years old Clinical indication: Condition or disease; Lung condition and disease; Pleural effusion; Other: Not specified; Additional info: Pleural effusions TECHNIQUE: Imaging protocol: XR of the chest. Views: 1 view. COMPARISON: CR (CHEST, ) 01/24/2021 7:11 PM FINDINGS: Lungs: Reduced lung volumes. No focal airspace consolidation. Mild chronic interstitial lung changes. Pleural spaces: Small volume bilateral pleural effusions. Negative for pneumothorax. Heart/Mediastinum: Unremarkable. No cardiomegaly. Bones/joints: Multilevel vertebral augmentation changes in the thoracic spine. XR/XR chest 1V portable [id number] IMPRESSION: No significant change from comparison.
--- NOTE | 2021-01-27 15:52 | USCV_ITS ---
Griselda Manjarrez Age: 66 Gender: F : 1955 Exam Date: 01/27/2021 16:17 Ordering Phys: Hitesh Hooker MD Technologist: DAO Exam Location[place] [facility] [place] Indication: PERICARDIAL EFFUSION BP: 115 / 70 HR: 79 Rhythm: Sinus Technical Quality: Technically difficult study MEASUREMENTS (Male / Female) Normal Values 2D ECHO LV Diastolic Diameter PLAX 4.9 cm 4.2 - 5.9 / 3.9 - 5.3 cm LV Systolic Diameter PLAX 3.4 cm IVS Diastolic Thickness 1.0 cm 0.6 - 1.0 / 0.6 - 0.9 cm IVS Systolic Thickness 1.4 cm LVPW Diastolic Thickness 1.2 cm 0.6 - 1.0 / 0.6 - 0.9 cm LVPW Systolic Thickness 1.8 cm LVOT Diameter 1.9 cm LV Ejection Fraction 2D Teich 57.0 % LV Ejection Fraction MOD 2C 43.6 % LV Ejection Fraction 2C AL 45.0 % LA Diameter 3.7 cm LA Width 3.1 cm LA Height 4.3 cm RA Width 2.3 cm RA Height 3.5 cm Aorta at Sinotubular Diameter 2.7 cm M-MODE LV Diastolic Diameter MM 5.6 cm 4.2 - 5.9 / 3.9 - 5.3 cm LV Systolic Diameter MM 4.0 cm LV Ejection Fraction MM Teich 56.1 % IVS Diastolic Thickness MM 1.7 cm 0.6 - 1.0 / 0.6 - 0.9 cm IVS Systolic Thickness MM 1.5 cm LVPW Diastolic Thickness MM 1.2 cm 0.6 - 1.0 / 0.6 - 0.9 cm LVPW Systolic Thickness MM 2.0 cm Aortic Annulus Diameter 3.0 cm LA Ao Ratio MM 1.3 FINDINGS Left Ventricle Normal LV size with a slightly diminished ejection fraction of 45 percent. Mild diffuse hypokinesia of the left ventricle. Right Ventricle Normal right ventricular size and systolic function. No diastolic collapse of the right ventricle Right Atrium Normal right atrial size. Left Atrium Normal left atrial size. Mitral Valve No gross abnormalities noted Aortic Valve No gross abnormalities noted Tricuspid Valve Tricuspid valve not well visualized. Pulmonic Valve Pulmonic valve not well visualized. Pericardium Moderate echo-free space anteriorly and posteriorly. Echogenic material was found to be attached to the visceral pericardium Aorta Normal aortic annulus size. CONCLUSIONS Normal LV size with a slightly diminished ejection fraction of 45 percent. Mild diffuse hypokinesia of the left ventricle. Moderate pericardial effusion, possibly exudative No echocardiographic evidence of hemodynamic compromise Technically somewhat difficult study. Dr Hitesh Hooker MD FACC (Electronically Signed) Final Date: 28 January 2021 23:29 S
[2021-01-27] MEDS: potassium chloride ER 20 mEq Tablet PO (18:17)
[2021-01-27 20:32] LABS: Glucose Point of Care 207 mg/dL (70-110)
[2021-01-27 20:38] LABS: Glucose Point of Care 175 mg/dL (70-110)
[2021-01-27] MEDS: guaiFENesin 100 mg/5 mL UDC 10 mL 200 MG PO (21:46)
[2021-01-28] VITALS (7 sets, daily range): BP systolic 107–133; BP diastolic 73–84; PULSE 65–89; RESP 12–18; TEMP 36.4–36.8; O2SAT 91–93
[2021-01-28 06:26] LABS: Glucose Point of Care 141 mg/dL (70-110)
[2021-01-28] MEDS: benzonatate 100 mg Capsule 200 MG PO (06:32)
--- NOTE | 2021-01-28 08:56 | P.PN_ITS ---
Subjective Subjective: Interval history: Patient is feeling much better. She denies any chest pain or chest tightness. Remains afebrile. Vital signs are stable. Medications: Reviewed: Yes Medication Review Details: Current Medications Acetaminophen (Acetaminophen 325 Mg Tablet) 650 mg PO Q6H PRN PRN Reason: Mild/Mod Pain Or Temp >/= 101 Aspirin (Aspirin 81 Mg Ec Tablet) 81 mg PO DAILY [facility] Last Admin: 01/27/21 09:53 Dose: 81 mg Documented by: Benzonatate (Benzonatate 100 Mg Capsule) 200 mg PO TID PRN PRN Reason: COUGH Last Admin: 01/28/21 06:32 Dose: 200 mg Documented by: Bupropion HCl (Bupropion Xl (24 Hr) 150 Mg Tablet) 150 mg PO DAILY [facility] Last Admin: 01/27/21 09:53 Dose: 150 mg Documented by: Calcium Carbonate (Calcium Carbonate 500 Mg Chew Tablet) 1,000 mg PO Q4H PRN PRN Reason: DYSPEPSI Last Admin: 01/27/21 00:14 Dose: 1,000 mg Documented by: Carvedilol (Carvedilol 6.25 Mg Tablet) 6.25 mg PO BID [facility] Last Admin: 01/27/21 18:17 Dose: 6.25 mg Documented by: Dextrose (Dextrose 50% Syringe 50 Ml) 25 ml IVP ONCE PRN; Protocol PRN Reason: hypoglycemia protocol Dextrose (Dextrose 50% Syringe 50 Ml) 50 ml IVP PRN PRN; Protocol PRN Reason: hypoglycemia protocol Ezetimibe (Ezetimibe 10 Mg Tablet) 10 mg PO DAILY [facility] Last Admin: 01/27/21 09:53 Dose: 10 mg Documented by: Enoxaparin Sodium (Enoxaparin 40 Mg/0.4 Ml Syringe) 40 mg SUBCUT Q24H [facility] Last Admin: 01/27/21 04:46 Dose: 40 mg Documented by: Escitalopram Oxalate (Escitalopram 10 Mg Tablet) 10 mg PO DAILY [facility] Last Admin: 01/27/21 09:53 Dose: 10 mg Documented by: Furosemide (Furosemide 10 Mg/Ml Sdv 4ml) 40 mg IVP ONCE STEPHANY Glucagon (Glucagon 1 Mg/Ml Inj 1 Ml) 1 mg IM ONCE PRN; Protocol PRN Reason: Adult Acute Hypoglycemia Prot. Guaifenesin (Guaifenesin 100 Mg/5 Ml Udc 10 Ml) 200 mg PO Q4H PRN PRN Reason: COUGH AND CONGESTION Last Admin: 01/27/21 21:46 Dose: 200 mg Documented by: Hydromorphone HCl (Hydromorphone 4 Mg Tablet) 4 mg PO TID PRN PRN Reason: SEVERE PAIN Last Admin: 01/28/21 06:32 Dose: 4 mg Documented by: Dextrose (D5w) 500 mls @ 100 mls/hr IV ONCE PRN; Protocol PRN Reason: Adult Acute Hypoglycemia Prot Insulin Aspart (Insulin Aspart 100 Unit/1 Ml) 0 unit SUBCUT BEDTIME [facility]; Protocol Last Admin: 01/27/21 21:48 Dose: 1 unit Documented by: Insulin Aspart (Insulin Aspart 100 Unit/1 Ml) 0 unit SUBCUT TIDWM [facility]; Protocol Last Admin: 01/28/21 07:12 Dose: Not Given Documented by: Non-Formulary Medication - Crestor 40 Mg 0 each PO DAILY [facility] Last Admin: 01/27/21 09:54 Dose: Not Given Documented by: Ondansetron HCl (Ondansetron 2 Mg/Ml Sdv 2 Ml) 4 mg IVP Q8H PRN PRN Reason: vomiting, or N/V if npo Last Admin: 01/27/21 00:22 Dose: 4 mg Documented by: Ondansetron HCl (Ondansetron 2 Mg/Ml Sdv 2 Ml) 4 mg IVP Q2M PRN PRN Reason: NAUSEA Pantoprazole Sodium (Pantoprazole Dr 40 Mg Tablet) 40 mg PO DAILY [facility] Last Admin: 01/27/21 09:53 Dose: 40 mg Documented by: Potassium Chloride (Potassium Chloride Er 10 Meq Tablet) 10 meq PO DAILY [facility] Last Admin: 01/27/21 09:53 Dose: 10 meq Documented by: Potassium Chloride (Potassium Chloride Er 20 Meq Tablet) 20 meq PO ONCE [facility] Ropinirole HCl (Ropinirole 0.25 Mg Tablet) 0.5 mg PO BID [facility] Last Admin: 01/27/21 18:16 Dose: 0.5 mg Documented by: Vitals/I&O/Wt Last Vital Signs Temp 98.2 F 01/28/21 07:55 Pulse 65 01/28/21 07:55 Resp 18 01/28/21 07:55 BP 126/73 01/28/21 07:55 Pulse Ox 92 01/28/21 07:55 Weight last 48 hrs Weight 222 lb 11.2 oz Weight 222 lb 11.2 oz Physical Exam Narrative: EXAM NARRATIVE: GENERAL: The patient is alert and oriented times three. Not in any acute distress. HEENT: No significant pallor, icterus or lymphadenopathy. The pupils are vertical oral cavity: There are no mucous membrane lesions. Funduscopic examination: The disk margins appear to be sharp with no exudates or hemorrhages. NECK: Trachea appears to be central. No masses noted. No JVD or thyromegaly appreciated. No carotid bruit. RESPIRATORY: Chest is symmetrical. No intercostals muscle retraction or any accessory muscle activation. There is no chest wall tenderness. Breath sounds are heard bilaterally. No rales or rhonchi heard. No evidence of any consolidation. BREASTS: Deferred. HEART: The PMI could not be palpated. No palpable precordial events. S1 and S2 are normal. No S3 or S4 heard. No pericardial rub or any click heard. ABDOMEN: Abdomen is obese, slightly distended. Bowel sounds are normally heard. No rebound tenderness. : Deferred. RECTAL: Deferred. LYMPHATIC: No lymphadenopathy noted in the neck or groin. EXTREMITIES: Trace edema with no cyanosis. Peripheral pulses are palpable in fairly good volume. Musculoskeletal: No acute joint deformities or swelling SKIN: There are no significant scars or skin rash noted. NEUROPSYCHIATRIC: The patient is alert and oriented x3. Appears to be in a good mood. The higher functions are grossly within normal limits. No tremors or rigidity noted. Data : 01/28/21 12:25 01/28/21 12:25 A&P Assessment and plan (1) Diastolic heart failure of unknown etiology: The patient has clinical features of mild diastolic heart failure. No evidence of ischemia, based on the perfusion scan. Blood pressure is in the normal range. May continue careful diuresis. I may give an extra dose of Lasix tonight Status: Acute (2) Pericardial effusion: The etiology of the pericardial effusion is not clear at this time. Even though heart failure could be contributing factor, the extent of pericardial effusion seems to be out of proportion to the heart failure. Need to look into other etiologies. Iin view of the recent anemia,? low-grade fever and anorexia, infective/inflammatory/malignant etiologies cannot be excluded. Patient may benefit from a diagnostic as well as therapeutic pericardiocentesis. Status: Acute (3) MOLLY (obstructive sleep apnea): (4) ASHD (arteriosclerotic heart disease): Patient had a mild coronary disease of angiogram many years ago. Had a perfusion scan from today reveals no evidence of ischemia. At this point, she may not require any specific intervention. (5) Hyperlipidemia: Continue on the current medications. Status: Acute Qualifiers: Hyperlipidemia type: other hyperlipidemia Qualified Code(s): E78.49 - Other hyperlipidemia (6) Ascites: sMALL Volume ascites Status: Deleted Qualifiers: Ascites type: other type Qualified Code(s): R18.8 - Other ascites (7) Anemia: ETIOLOGY? Status: Resolved Qualifiers: Anemia type: unspecified type Qualified Code(s): D64.9 - Anemia, unspecified Additional A&P Information If the patient continues remain stable, may be discharged home from a cardiac standpoint. She need to be seen in the [facility] in 1 week by the nurse practitioner. Repeat limited 2D echocardiogram in 2 weeks. In the event of she developing any increasing shortness of breath or any new symptoms, needs to come back to the hospital. 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
[2021-01-28] MEDS: buPROPion XL (24 HR) 150 mg Tablet PO (09:20)
[2021-01-28] MEDS: carvedilol 6.25 mg Tablet PO (09:20)
[2021-01-28] MEDS: ezetimibe 10 mg Tablet PO (09:20)
[2021-01-28] MEDS: ropinirole 0.25 mg Tablet 0.5 MG PO (09:20)
[2021-01-28] MEDS: pantoprazole DR 40 mg Tablet PO (09:20)
[2021-01-28] MEDS: potassium chloride ER 10 mEq Tablet PO (09:21)
[2021-01-28] MEDS: aspirin 81 mg EC Tablet PO (09:21)
[2021-01-28] MEDS: escitalopram 10 mg Tablet PO (09:21)
--- NOTE | 2021-01-28 10:41 | PM.PN ---
Vitals/I&O/Wt Last Vital Signs Temp 98.2 F 01/28/21 07:55 Pulse 65 01/28/21 07:55 Resp 18 01/28/21 07:55 BP 126/73 01/28/21 07:55 Pulse Ox 92 01/28/21 07:55 01/27/21 01/28/21 01/28/21 22:59 06:59 14:59 Output Total 275 / 275 Balance -275 / -275 Weight last 48 hrs Weight 101.015 kg Weight 101.015 kg Physical Exam Const: COMMON NORMALS: alert GENERAL APPEARANCE: cooperative and comfortable NUTRITIONAL APPEARANCE: overweight ORIENTATION/CONSCIOUSNESS: Yes oriented to person, Yes oriented to place and Yes oriented to time HENMT: COMMON NORMALS: normocephalic, atraumatic, external ears normal and Normal external nose present HEAD & SCALP: normocephalic and atraumatic FACE & SINUS: normal facial exam NOSE: Normal external nose present EXTERNAL EAR: Yes external ears normal MOUTH: Normal oral and palatal mucosa present THROAT: posterior oropharynx normal Eye: COMMON NORMALS: Equal, round and reactive pupils present and conjunctivae normal CONJUNCTIVA: Yes conjunctivae normal PUPIL: Yes Equal, round and reactive pupils present EOM: No EOM abnormal Neck/C-Spine: COMMON NORMALS: Thyroid normal GENERAL: Yes trachea midline and No lymphadenopathy THYROID: Thyroid normal Resp: COMMON NORMALS: clear to auscultation bilaterally AUSCULTATION: clear to auscultation bilaterally, no rales, no rhonchi and no wheezes Cardio: COMMON NORMALS: regular rate and regular rhythm RATE: regular rate RHYTHM: regular rhythm HEART SOUNDS: no click, no gallops, no murmurs and no rubs GI: COMMON NORMALS: Soft to palpation and No hepatosplenomegaly present AUSCULTATION: Yes normoactive bowel sounds PALPATION: Yes Soft to palpation, No Firmness to palpation present (GI), No Tenderness to palpation present (GI), No Guarding due to palpation present (GI) and Yes No hepatosplenomegaly present Extremity: COMMON NORMALS: no clubbing, cyanosis or edema Neuro: SENSORIUM/ORIENTATION: Yes alert, Yes oriented to person, Yes oriented to place and Yes oriented to time CRANIAL NERVES: Yes CN normal except as noted GAIT: Yes Assistive device used cane SENSORY EXAM: Yes Normal double simultaneous stimulation for sensation MOTOR EXAM: 5/5 motor strength present throughout Psych: COMMON NORMALS: speech normal SPEECH: Yes normal speech MOOD & AFFECT: Yes euthymic mood Skin: COMMON NORMALS: no rashes or lesions noted GENERAL SKIN EXAM: no rashes or lesions noted Data : 01/28/21 12:25 01/28/21 12:25 A&P Assessment and plan (1) Pericardial effusion: Status: Acute (2) Pleural effusion: Status: Acute (3) Hypertension: Status: Chronic Qualifiers: Hypertension type: essential hypertension Qualified Code(s): I10 - Essential (primary) hypertension (4) ASHD (arteriosclerotic heart disease): Status: Chronic (5) Controlled diabetes mellitus: Status: Chronic Qualifiers: Diabetes mellitus complication status: without complication Diabetes mellitus senior care insulin use: without exterminator helper use Diabetes mellitus type: type 2 Qualified Code(s): E11.9 - Type 2 diabetes mellitus without complications (6) Peripheral positional vertigo: Status: Acute (7) Osteogenesis imperfecta: Status: Acute (8) MOLLY (obstructive sleep apnea): Status: Chronic (9) CKD (chronic kidney disease): Status: Chronic Qualifiers: Chronic kidney disease stage: stage 3 (moderate) Chronic kidney disease stage 3 subtype: stage 3a (GFR 45-59) Qualified Code(s): N18.31 - Chronic kidney disease, stage 3a (10) Generalized neuropathy: Status: Chronic (11) Chronic midline thoracic back pain: Status: Chronic (12) Spinal stenosis, thoracic region: Status: Chronic Ms. Manjarrez is a 89yo woman w/ CAD, HTN, HLD, and non-IDDM2, who presented to the ED on 01/25/2021 with complaints of dyspnea on exertion. Her CXR showed cardiomegaly with diffuse pulmonary vascular congestion and small bilateral pleural effusions. There was concern for right lower lobe pneumonia. A CTA of the chest/Abd/pelvis was done that showed moderate pericardial fluid and thickening with concern for cardiac tamponade, but there was no signs of a PE or aortic dissection. Her BNP was 290. She was admitted for further evaluation. A TTE was done that showed an EF of 35 to 60% with Grade 1 diastolic dysfxn, mild to moderate aortic regurgurgitation, and a moderate sided pericardial effusion. Her COVID-19 test in the ED was negative. A nuclear medicine stress test was done on 01/25/2021, which was deemed negative. She was given 2 doses of Lasix 40 mg IVP starting on 01/26/2021, which improved her symptoms. Her road machinery inspector, Dr. Hooker, was consulted. # Moderate B/l pericardiac effuison: # b/l small Pleural effusions - Unclear cause. COVID-19 test is negative. Trop T was wnl. Her BNP was not elevated. Symptoms improved with Lasix. - F/u repeat CXR. Cardiology consulted for further Recs. PT ordered to evaluate improvement of her dyspnea. - Remember to d/c Potassium chloride # Vertigo - hx - On Meclizine prn at home. # non-IDDM2 -A1c of 7.1. Continue sliding scale insulin w/ BG monitoring # On ropinirole - for RLS? #CAD #HTN #HLD - On home Carvedilol, Ezetemibe, [place] 3 fish oil, & ROsuvastatin. Amlodiopine held. # GERD: On PRototonix here # Mood d/o vs Anxeity - On Lexapro, Bupropion. DVT ppx: Lovenox Coding Level of Care Code Acute Nurse Midwife for Chg Fwd Exam Comprehensive Diagnoses Pericardial effusion I31.3 Pleural effusion J90 Hypertension I10 Hypertension type: essential hypertension ASHD (arteriosclerotic heart disease) I25.10 Controlled diabetes mellitus E11.9 Diabetes mellitus complication status: without complication Diabetes mellitus senior care insulin use: without exterminator helper use Diabetes mellitus type: type 2 Peripheral positional vertigo H81.399 Osteogenesis imperfecta Q78.0 MOLLY (obstructive sleep apnea) G47.33 CKD (chronic kidney disease) N18.31 Chronic kidney disease stage: stage 3 (moderate) Chronic kidney disease stage 3 subtype: stage 3a (GFR 45-59) Generalized neuropathy G62.9 Chronic midline thoracic back pain M54.6; G89.29 Spinal stenosis, thoracic region M48.04
[2021-01-28 11:16] LABS: Glucose Point of Care 366 mg/dL (70-110)
[2021-01-28 11:16] LABS: Glucose Point of Care 332 mg/dL (70-110)
--- NOTE | 2021-01-28 12:07 | PC.SOCIAL ---
Pg 2 IMM Explained to pt, Pg 2 IMM. No questions voiced. Provided pt a copy. Signed, dated, & timed a copy & placed in chart.
[2021-01-28 12:53] LABS: Basophils # 0.1 10^3/uL (0.0-0.1); Basophils % 0.7 %; Eosinophils # 0.1 10^3/uL (0.0-0.8); Eosinophils % 0.5 %; Hematocrit 35.3 % (37.0-47.0); Hemoglobin 10.7 g/dL (11.5-15.3); Lymphocytes # 1.8 10^3/uL (0.8-4.8); Lymphocytes % 18.8 %; Mean Corpuscular HGB Conc 30.3 g/dL (30.0-36.0); Mean Corpuscular Hemoglobin 29.8 pg (28.0-34.0); Mean Corpuscular Volume 98.3 fL (81-99); Mean Platelet Volume 9.5 fL (7.4-10.4); Monocytes # 0.9 10^3/uL (0.2-0.9); Monocytes % 9.4 %; Neutrophils % 69.8 %; Nucleated Red Blood Cells % 0 %; Platelet Count 328 10^3/cmm (130-400); Red Blood Count 3.59 10^6/uL (4.1-5.3); Red Cell Distribution Width 12.9 % (12.1-15.1); White Blood Count 9.6 10^3/uL (4.0-10.0)
[2021-01-28 13:24] LABS: Alanine Aminotransferase 8 U/L (0-33); Albumin Level 3.3 g/dL (3.5-5.2); Alkaline Phosphatase 114 IU/L (35-105); Anion Gap 14.7 (5-19); Aspartate Amino Transferase 21 U/L (0-32); Blood Urea Nitrogen 24 mg/dL (8-23); Calcium 8.4 mg/dL (8.5-10.5); Carbon Dioxide 28 mmol/L (22-29); Chloride 92 mmol/L (98-107); Globulin 3.7 g/dL (1.3-4.6); Glomerular Filtration Rate 45.1 mL/min (90-130); Glucose 311 mg/dL (65-115); Magnesium 2.5 mg/dL (1.7-2.3); NT Pro B Type Natriuretic Pept 179 pg/mL (0-125); Osmolality Calculated 288 mOsm/kg (285-295); Phosphorus 3.7 mg/dL (2.5-4.5); Potassium 3.7 mmol/L (3.5-5.1); Sodium 131 mmol/L (136-145); Total Bilirubin 0.3 mg/dL (0.15-1.2)
--- NOTE | 2021-01-28 13:30 | P.DS_ITS ---
Discharge Providers Date of Admission: 01/25/21 17:57 Date of Discharge: January 28, 2021 Attending Provider at Admission: Leigh Ann Phillips MD Attending Provider at Discharge: Roxana Castellon MD Consults: Dr. Colindres, Dr. Alcides Hooker Primary Care Provider: Dena Mueller MD Diagnoses at Discharge Discharge Diagnosis (1) Pericardial effusion: Status: Deleted (2) Pleural effusion: Status: Acute (3) Hypertension: Qualifiers: Hypertension type: essential hypertension Qualified Code(s): I10 - Essential (primary) hypertension (4) ASHD (arteriosclerotic heart disease): (5) Controlled diabetes mellitus: Qualifiers: Diabetes mellitus complication status: without complication Diabetes mellitus terminal make up operator insulin use: without nursing home use Diabetes mellitus type: type 2 Qualified Code(s): E11.9 - Type 2 diabetes mellitus without complications (6) Peripheral positional vertigo: Status: Inactive (7) Osteogenesis imperfecta: Status: Acute (8) MOLLY (obstructive sleep apnea): (9) CKD (chronic kidney disease): Qualifiers: Chronic kidney disease stage: stage 3 (moderate) Chronic kidney disease stage 3 subtype: stage 3a (GFR 45-59) Qualified Code(s): N18.31 - Chronic kidney disease, stage 3a (10) Generalized neuropathy: (11) Chronic midline thoracic back pain: (12) Spinal stenosis, thoracic region: Reason for Visit Reason for Visit: SOB/SENT BY PCP [facility] Course Hospital Course Ms. Manjarrez is a 89yo woman w/ CAD, HTN, HLD, and non-IDDM2, who presented to the ED on 01/25/2021 with complaints of dyspnea on exertion. Her CXR showed cardiomegaly with diffuse pulmonary vascular congestion and small bilateral pleural effusions. There was concern for right lower lobe pneumonia. A CTA of the chest/Abd/pelvis was done that showed moderate pericardial fluid and thickening with concern for cardiac tamponade, but there was no signs of a PE or aortic dissection. Her BNP was 290. She was admitted for further evaluation. A TTE was done that showed an EF of 35 to 60% with Grade 1 diastolic dysfxn, mild to moderate aortic regurgurgitation, and a moderate sided pericardial effusion. Her COVID-19 test in the ED was negative. A nuclear medicine stress test was done on 01/25/2021, which was deemed negative. She was given 2 doses of Lasix 40 mg IVP starting on 01/26/2021, which improved her symptoms. Her electrical apprentice, Dr. Hooker, was consulted, who evaluated her and did not feel that her pericardial effusions were not Cardiac related, given her normal Trop T and pro-BNP, but rather, infectious or inflammatory. An CHRIS Panel and BCx were ordered and then the patient was d/c'ed to f/u w/ her Cement Boat And Barge Loader, Dr. Hooker. She was also d/c'ed to follow up with Infectious Disease SPecialist in clinic. Results of the CHRIS & BCx were pending at the time of discharge. # Vertigo - hx - D/c'ed home w/ Meclizine prn. # non-IDDM2 -A1c of 7.1. D/c'ed on her home meds. # On ropinirole - for RLS? #CAD #HTN #HLD - D/c'ed on home meds # GERD: - D/c'ed on home meds # Mood d/o vs Anxeity - D/c'ed on home meds (Lexapro, Bupropion.) Physical Exam Narrative: EXAM NARRATIVE: Const: COMMON NORMALS: alert GENERAL APPEARANC E: cooperative and comfortable NUTRITIONAL APPEARANCE: overweight ORIENTATION/CONSCIOUSNESS: Yes oriented to person, Yes oriented to place and Yes oriented to time HENMT: COMMON NORMALS: normocephalic, atraumatic, external ears normal and Normal external nose present HEAD & SCALP: normocephalic and atraumatic FACE & SINUS: normal facial exam NOSE: Normal external nose present EXTERNAL EAR: Yes external ears normal MOUTH: Normal oral and palatal mucosa present THROAT: posterior oropharynx normal Eye: COMMON NORMALS: Equal, round and reactive pupils present and conjunctivae normal CONJUNCTIVA: Yes conjunctivae normal PUPIL: Yes Equal, round and reactive pupils present EOM: No EOM abnormal Neck/C-Spine: COMMON NORMALS: Thyroid normal GENERAL: Yes trachea midline and No lymphadenopathy THYROID: Thyroid normal Resp: COMMON NORMALS: clear to auscultation bilaterally AUSCULTATION: clear to auscultation bilaterally, no rales, no rhonchi and no wheezes Cardio: COMMON NORMALS: regular rate and regular rhythm RATE: regular rate RHYTHM: regular rhythm HEART SOUNDS: no click, no gallops, no murmurs and no rubs GI: COMMON NORMALS: Soft to palpation and No hepatosplenomegaly present AUSCULTATION: Yes normoactive bowel sounds PALPATION: Yes Soft to palpation, No Firmness to palpation present (GI), No Tenderness to palpation present (GI), No Guarding due to palpation present (GI) and Yes No hepatosplenomegaly present Extremity: COMMON NORMALS: no clubbing, cyanosis or edema Neuro: SENSORIUM/ORIENTATION: Yes alert, Yes oriented to person, Yes oriented to place and Yes oriented to time CRANIAL NERVES: Yes CN normal except as noted GAIT: Yes Assistive device used cane SENSORY EXAM: Yes Normal double simultaneous stimulation for sensation MOTOR EXAM: 5/5 motor strength present throughout Psych: COMMON NORMALS: speech normal SPEECH: Yes normal speech MOOD & AFFECT: Yes euthymic mood Skin: COMMON NORMALS: no rashes or lesions noted GENERAL SKIN EXAM: no rashes or lesions noted Discharge Data Data Completed and Pending: Completed Studies During Hospitalization Category Date Time Status CT angio chest PE protcl [id number] Rout ine Cat Scan 01/25/21 07:[address] MIBI [Sestamibi Stress Test Reque st Exams 01/27/21 06:36 Completed ] Routine XR chest 1V adrian ble [id number] Routine Exams 01/27/21 15:35 Completed XR chest 1V adrian ble [id number] Urgent Exams 01/24/21 15:18 Completed NM timothy perf SPECT r/s* [id number] Routin e Nuc Med 01/27/21 10:22 Completed CV. echo complete * [id number] Routine Ultrasound 01/25/21 06:00 Completed Pending at discharge Category Date Time Status CHRIS Profile Rheum atology Stat Lab 01/28/21 12:25 Received Blood Culture Sta t Lab 01/28/21 12:34 Results CRP High Sensitiv ity Cardiac Stat Lab 01/28/21 12:25 Results Comprehensive Met abolic Panel Stat Lab 01/28/21 12:25 Results Erythrocyte Sedim entation Rate Stat Lab 01/28/21 12:25 Received Magnesium Stat Lab 01/28/21 12:25 Results NT Pro B Type Latosha riuretic Pept Stat Lab 01/28/21 12:25 Results Phosphorus Stat Lab 01/28/21 12:25 Results [id number] ld Plus Stat Lab 01/28/21 12:25 Received CV. echo lmt w co louie [id number]/ Routi ne Ultrasound 01/27/21 15:52 Taken Labs from last 24 hours 01/28/21 01/28/21 01/28/21 12:25 12:25 12:25 WBC RBC Hgb Hct MCV MCH MCHC RDW Plt Count MPV Neut % (Auto) Lymph % (Auto) [place] % (Auto) Eos % (Auto) Baso % (Auto) Neut # (Auto) Lymph # (Auto) [place] # (Auto) Eos # (Auto) Baso # (Auto) Nucleated RBC % (a uto) Nucleated RBCs # ESR Pending Sodium Potassium Chloride Carbon Dioxide Anion Gap BUN Creatinine GFR Calculation Glucose POC Glucose Calculated Osmolal ity Calcium Phosphorus Magnesium Total Bilirubin AST ALT Alkaline Phosphata se C-React Prot High Sens NT-Pro-B Natriuret Pep Total Protein Albumin Globulin CHRIS IFA Animal Tis Res Pending NATIVIDAD-1 Antibody Pending SS-A Antibody Pending SS-B Antibody Pending Sm (Robertson) Antibod y Pending PRODUCT APPLICATIONS SCIENTIST Antibody Pending Scl-70 Antibody Pending Anti-ds DNA IgG (C rith) Pending Centromere B Antib christelle Pending Thyroid Peroxidase Ab Pending Complement C3c Pending Complement C4c Pending CH50 Classical Pat hway Pending TB (QFT) Gold In T ube Pending TB Test (QFT) Nil Pending TB Test (QFT) Suraj gen Pending TB Test Mitogen - Nil Pending TB Test TB - Nil Pending 01/28/21 01/28/21 01/28/21 12:25 12:25 11:12 WBC 9.6 RBC 3.59 L Hgb 10.7 L Hct 35.3 L MCV 98.3 MCH 29.8 MCHC 30.3 RDW 12.9 Plt Count 328 MPV 9.5 Neut % (Auto) 69.8 Lymph % (Auto) 18.8 [place] % (Auto) 9.4 Eos % (Auto) 0.5 Baso % (Auto) 0.7 Neut # (Auto) 6.70 Lymph # (Auto) 1.8 [place] # (Auto) 0.9 Eos # (Auto) 0.1 Baso # (Auto) 0.1 Nucleated RBC % (a uto) 0 Nucleated RBCs # 0.0 ESR Sodium 131 L Potassium 3.7 Chloride 92 L Carbon Dioxide 28 Anion Gap 14.7 BUN 24 H Creatinine 1.2 H GFR Calculation 45.1 L Glucose 311 H POC Glucose 332 H Calculated Osmolal ity 288 Calcium 8.4 L Phosphorus 3.7 Magnesium 2.5 H Total Bilirubin 0.3 AST 21 ALT 8 Alkaline Phosphata se 114 H C-React Prot High Sens Pending NT-Pro-B Natriuret Pep 179 H Total Protein 7.0 Albumin 3.3 L Globulin 3.7 CHRIS IFA Animal Tis Res NATIVIDAD-1 Antibody SS-A Antibody SS-B Antibody Sm (Robertson) Antibod y PRODUCT APPLICATIONS SCIENTIST Antibody Scl-70 Antibody Anti-ds DNA IgG (C rith) Centromere B Antib christelle Thyroid Peroxidase Ab Complement C3c Complement C4c CH50 [place] TB (QFT) Gold In T ube TB Test (QFT) Nil TB Test (QFT) Suraj gen TB Test Mitogen - Nil TB Test TB - Nil 01/28/21 01/28/21 01/27/21 11:08 06:20 20:34 WBC RBC Hgb Hct MCV MCH MCHC RDW Plt Count MPV Neut % (Auto) Lymph % (Auto) [place] % (Auto) Eos % (Auto) Baso % (Auto) Neut # (Auto) Lymph # (Auto) [place] # (Auto) Eos # (Auto) Baso # (Auto) Nucleated RBC % (a uto) Nucleated RBCs # ESR Sodium Potassium Chloride Carbon Dioxide Anion Gap BUN Creatinine GFR Calculation Glucose POC Glucose 366 H 141 H 175 H Calculated Osmolal ity Calcium Phosphorus Magnesium Total Bilirubin AST ALT Alkaline Phosphata se C-React Prot High Sens NT-Pro-B Natriuret Pep Total Protein Albumin Globulin CHRIS IFA Animal Tis Res NATIV[place]-1 Antibody SS-A Antibody SS-B Antibody Sm (Robertson) Antibod y PRODUCT APPLICATIONS SCIENTIST Antibody Scl-70 Antibody Anti-ds DNA IgG (C rith) Centromere B Antib christelle Thyroid Peroxidase Ab Complement C3c Complement C4c CH50 [place] TB (QFT) Gold In T ube TB Test (QFT) Nil TB Test (QFT) Suraj gen TB Test Mitogen - Nil TB Test TB - Nil 01/27/21 17:10 WBC RBC Hgb Hct MCV MCH MCHC RDW Plt Count MPV Neut % (Auto) Lymph % (Auto) [place] % (Auto) Eos % (Auto) Baso % (Auto) Neut # (Auto) Lymph # (Auto) [place] # (Auto) Eos # (Auto) Baso # (Auto) Nucleated RBC % (a uto) Nucleated RBCs # ESR Sodium Potassium Chloride Carbon Dioxide Anion Gap BUN Creatinine GFR Calculation Glucose POC Glucose 207 H Calculated Osmolal ity Calcium Phosphorus Magnesium Total Bilirubin AST ALT Alkaline Phosphata se C-React Prot High Sens NT-Pro-B Natriuret Pep Total Protein Albumin Globulin CHRIS IFA Animal Tis Res NATIVID[place]-1 Antibody SS-A Antibody SS-B Antibody Sm (Robertson) Antibod y PRODUCT APPLICATIONS SCIENTIST Antibody Scl-70 Antibody Anti-ds DNA IgG (C rith) Centromere B Antib christelle Thyroid Peroxidase Ab Complement C3c Complement C4c CH50 [place] TB (QFT) Gold In T ube TB Test (QFT) Nil TB Test (QFT) Suraj gen TB Test Mitogen - Nil TB Test TB - Nil Vitals: Last Vital Signs Temp 98.1 F 01/28/21 12:00 Pulse 89 01/28/21 12:00 Resp 17 01/28/21 12:00 BP 133/84 01/28/21 12:00 Pulse Ox 93 01/28/21 12:00 Discharge Plan Discharge Patient Disposition: Home Condition: Stable Prescriptions: New furosemide 40 mg tablet 40 mg PO DAILY 30 Days Qty: 30 RF: 0 Continued amlodipine 5 mg tablet 5 mg PO DAILY RF: 0 aspirin [Adult Aspirin Regimen] 81 mg tablet,delayed release (DR/EC) 81 mg PO DAILY RF: 0 escitalopram oxalate 10 mg tablet 10 mg PO DAILY RF: 0 rosuvastatin [Crestor] 40 mg tablet 40 mg PO DAILY RF: 0 bupropion HCl 150 mg tablet extended release 24 hr 150 mg PO DAILY RF: 0 Dexilant 60 mg capsule,biphase delayed releas 60 mg PO DAILY RF: 0 calcium citrate-vitamin D3 1 tab PO DAILY RF: 0 ropinirole 0.5 mg tablet 0.5 mg PO BID RF: 0 (DME) Diabetic Shoes See Rx Instructions .ROUTE .MEDSUPPLY Qty: 1 RF: 0 hydromorphone 4 mg tablet 4 mg PO TID PRN (Reason: pain) 30 Days Qty: 90 RF: 0 carvedilol 6.25 mg tablet 6.25 mg PO BID Qty: 180 RF: 3 glipizide 10 mg tablet extended release 24hr 40 mg PO DAILY RF: 0 [place] 3 Fish Oil Concentrate 1,250 mg PO DAILY RF: 0 ezetimibe [Zetia] 10 mg tablet 10 mg PO DAILY RF: 0 meclizine 25 mg tablet,chewable 25 mg PO TID PRN (Reason: dizziness) Qty: 30 RF: 0 Discharge Orders: Discharge Order (Routine); Ordered 01/28/21 Ordered By: Roxana Castellon Other Ambulatory Orders: Comprehensive Metabolic Panel (Routine) Timeframe: 1 Week Facility: [facility] - Location: Lab - Main Lab Ordered By: Roxana Castellon Referrals: Dena Mueller MD [Primary Care Provider] - 02/05/21 11:30 am Hitesh Hooker MD [Physician] - 02/04/21 3:15 pm (Follow up in one week. He will decide whether you need to have the fluid around your heart drained.) Nydia Colindres MD [Hospitalist] - 02/18/21 10:30 am (Pericardial effusion. Her Cement Boat And Barge Loader is concerned for an infectious or inflammatory process. ) Discharge Diet: Diabetic and Low Salt Discharge Activity: Resume usual activity and Increase activity as tolerated Patient Instructions: Furosemide (By mouth), Cardiac Tamponade (GEN), Opioid Safety Discharge Attestations Time Spent in Discharge Care*: greater than 30 min Quality Metrics Clinical Quality Measures During this hospital stay, did patient experience: None Coding Level of Care Code Acute Chg FW DC note Diagnoses Pericardial effusion I31.3 Pleural effusion J90 Hypertension I10 Hypertension type: essential hypertension ASHD (arteriosclerotic heart disease) I25.10 Controlled diabetes mellitus E11.9 Diabetes mellitus complication status: without complication Diabetes mellitus terminal make up operator insulin use: without nursing home use Diabetes mellitus type: type 2 Peripheral positional vertigo H81.399 Osteogenesis imperfecta Q78.0 MOLLY (obstructive sleep apnea) G47.33 CKD (chronic kidney disease) N18.31 Chronic kidney disease stage: stage 3 (moderate) Chronic kidney disease stage 3 subtype: stage 3a (GFR 45-59) Generalized neuropathy G62.9 Chronic midline thoracic back pain M54.6; G89.29 Spinal stenosis, thoracic region M48.04
[2021-01-28 13:37] LABS: Erythrocyte Sedimentation Rate 73 mm/hr (0-15)
[2021-01-29 13:03] LABS: COMPLEMENT COMPONENT C3C 216 mg/dL (83-193); COMPLEMENT COMPONENT C4C 45 mg/dL (15-57); COMPLEMENT, TOTAL (CH50) >60 U/mL (31-60)
[2021-01-30 13:37] LABS: CENTROMERE B ANTIBODY <1.0 NEG AI (<1.0 NEG); JO-1 ANTIBODY <1.0 NEG AI (<1.0 NEG); RNP ANTIBODY <1.0 NEG AI (<1.0 NEG); SCL-70 ANTIBODY <1.0 NEG AI (<1.0 NEG); SJOGREN'S ANTIBODY (SS-A) <1.0 NEG AI (<1.0 NEG); SM ANTIBODY <1.0 NEG AI (<1.0 NEG); SS-B <1.0 NEG AI (<1.0 NEG)
[2021-01-30 15:22] LABS: Quantiferon Mitogen 9.28 IU/mL; Quantiferon Nil 0.06 IU/mL; Quantiferon Plus TB2 0.01 IU/mL; Quantiferon TB Gold NEGATIVE (NEGATIVE)
[2021-01-30 15:58] LABS: ANA SCREEN, IFA NEGATIVE (NEGATIVE)
[2021-01-31 17:48] LABS: THYROID PEROXIDASE ANTIBODIES 3 IU/mL (<9)
[2021-02-06 00:23] LABS: DNA AB (DS) CRITHIDIA,IFA NEGATIVE (NEGATIVE)
== END 2021-01-28 15:10 | disposition home or self-care (01) | DRG 315 ==
LOC: ER 01-25 01:37 → MEDSURG 01-25 01:41
PROVIDERS: Internal Medicine; Physician Assistant; Admitting Provider Hospitalist; Emergency Provider Nurse Practitioner Family; PCP Family Medicine; Visit Provider Internal Medicine
DX: I31.3 Pericardial effusion (noninflammatory) (principal); I13.0 Hypertensive heart and chronic kidney disease with heart failure and stage 1 through stage 4 chronic kidney disease, or unspecified chronic kidney disease; I50.30 Unspecified diastolic (congestive) heart failure; Q78.0 Osteogenesis imperfecta; R18.8 Other ascites; I31.4 Cardiac tamponade; N18.31 Chronic kidney disease, stage 3a; E11.22 Type 2 diabetes mellitus with diabetic chronic kidney disease; G89.29 Other chronic pain; I25.10 Atherosclerotic heart disease of native coronary artery without angina pectoris; M81.0 Age-related osteoporosis without current pathological fracture; Z79.1 Long term (current) use of non-steroidal anti-inflammatories (NSAID); Z79.891 Long term (current) use of opiate analgesic; E11.42 Type 2 diabetes mellitus with diabetic polyneuropathy; E78.49 Other hyperlipidemia; G47.33 Obstructive sleep apnea (adult) (pediatric); M19.90 Unspecified osteoarthritis, unspecified site; M48.04 Spinal stenosis, thoracic region; I35.1 Nonrheumatic aortic (valve) insufficiency; Z79.84 Long term (current) use of oral hypoglycemic drugs; Z79.82 Long term (current) use of aspirin; D64.9 Anemia, unspecified; Z87.891 Personal history of nicotine dependence
CPT/HCPCS: 36415; 36416; 70450; 71045; 71275; 74177; 78452; 80048; 80053; 81003; 82550; 82962; 83036; 83735; 83880; 84100; 84443; 84484; 85025; 85378; 85610; 85651; 85730; 86141; 86160; 86162; 86235; 86255; 86376; 86480; 87040; 87426; 90471; 90732; 93005; 93017; 93306; 93308; 93325; 96360; 96372; 96374; 97116; 97161; 99213; 99284; 99285; A9500; G0378; J1650; J1815; J1940; J2405; J2785; J7030; J8597; Q9967

== ENCOUNTER → 2021-02-04 15:31 | Outpatient (BNVA) | payer MEDICARE, MEDICAID, SELFPAY | PROVIDERS: PCP Family Medicine; Visit Provider Internal Medicine Cardiovascular Disease | DX: R06.02 Shortness of breath (principal); I50.33 Acute on chronic diastolic (congestive) heart failure; I42.9 Cardiomyopathy, unspecified; I50.30 Unspecified diastolic (congestive) heart failure; I31.3 Pericardial effusion (noninflammatory); D64.9 Anemia, unspecified; E78.49 Other hyperlipidemia; J90 Pleural effusion, not elsewhere classified; I10 Essential (primary) hypertension | CPT/HCPCS: 80048; 83880 ==

== ENCOUNTER 2021-02-13 15:00 | Outpatient (CLI) | payer MEDICARE, MEDICAID, SELFPAY ==
--- NOTE | 2021-02-13 15:30 | USCV_ITS ---
Griselda Manjarrez Age: 66 Gender: F : 1955 Exam Date: 02/13/2021 15:14 Ordering Phys: Hitesh Hooker MD ([email or web address]) Technologist: Sara Gardner [place] [facility] [place]: PC EFFUSION BP: 110 / 75 HR: 87 Rhythm: Sinus Technical Quality: Fair MEASUREMENTS (Male / Female) Normal Values 2D ECHO LV Diastolic Diameter PLAX 4.0 cm 4.2 - 5.9 / 3.9 - 5.3 cm LV Systolic Diameter PLAX 3.2 cm IVS Diastolic Thickness 1.4 cm 0.6 - 1.0 / 0.6 - 0.9 cm IVS Systolic Thickness 1.3 cm LVPW Diastolic Thickness 1.1 cm 0.6 - 1.0 / 0.6 - 0.9 cm LVPW Systolic Thickness 1.6 cm LVOT Diameter 2.0 cm LV Ejection Fraction 2D Teich 38.7 % LV Ejection Fraction MOD 2C 40.1 % LV Ejection Fraction 2C AL 39.3 % LA Width 2.4 cm LA Height 4.5 cm RA Width 3.0 cm RA Height 4.7 cm Aorta at Sinotubular Diameter 3.3 cm FINDINGS Left Ventricle Normal LV size with a borderline low ejection fraction 50 to 55%. Relative hypokinesia of the septum Right Ventricle Normal right ventricular size and systolic function. Right Atrium Normal right atrial size. Left Atrium Normal left atrial size. Mitral Valve No gross abnormalities noted Aortic Valve No gross abnormalities noted Tricuspid Valve No gross abnormalities noted Pulmonic Valve Pulmonic valve not well visualized. Pericardium Echogenic material attached to the visceral pericardium with a small effusion Aorta Normal aortic annulus size. CONCLUSIONS Normal LV size with a borderline low ejection fraction 50 to 55%. Relative hypokinesia of the septum. Possible small pericardial effusion. Possibly normal chamber sizes. No obvious intracardiac masses. Compared to study from 01/25/2021, there is significant decrease in the pericardial effusion Dr Hitesh Hooker MD [facility] (Electronically Signed) Final Date: 14 February 2021 15:50 S
== END 2021-02-13 15:01 | disposition home or self-care (01) ==
LOC: RAD 15:03
PROVIDERS: PCP Family Medicine; Visit Provider Internal Medicine Cardiovascular Disease
DX: I42.9 Cardiomyopathy, unspecified (principal)
CPT/HCPCS: 93308

== ENCOUNTER → 2021-02-19 09:10 | Outpatient (BNVA) | payer MEDICARE, MEDICAID, SELFPAY | PROVIDERS: PCP Family Medicine; Visit Provider Internal Medicine Cardiovascular Disease | DX: E78.49 Other hyperlipidemia (principal); I50.30 Unspecified diastolic (congestive) heart failure; I10 Essential (primary) hypertension | CPT/HCPCS: 80048; 83880 ==

== ENCOUNTER → 2021-03-06 08:44 | Outpatient (BNVA) | payer MEDICARE, MEDICAID, SELFPAY | PROVIDERS: PCP Family Medicine; Visit Provider Internal Medicine Cardiovascular Disease | DX: I31.3 Pericardial effusion (noninflammatory) (principal); I50.30 Unspecified diastolic (congestive) heart failure; E78.49 Other hyperlipidemia; J90 Pleural effusion, not elsewhere classified; Z79.1 Long term (current) use of non-steroidal anti-inflammatories (NSAID) | CPT/HCPCS: 80048; 83735; 83880 ==

== ENCOUNTER 2021-04-07 13:42 | Outpatient (CLI) | payer MEDICARE, MEDICAID, SELFPAY ==
[2021-04-07 13:53] VITALS: BP 122/77; PULSE 103; RESP 18; TEMP 36.9; O2SAT 98
[2021-04-07] MEDS: denosumab 60 mg SDV SUBCUT (14:03)
[2021-04-07 14:10] VITALS: BP 121/79; PULSE 99; RESP 18; TEMP 36.8; O2SAT 97
== END 2021-04-07 13:43 | disposition home or self-care (01) ==
LOC: ONCMED 13:45
PROVIDERS: PCP Family Medicine; Referring Provider Physician Assistant; Visit Provider Physician Assistant
DX: M81.0 Age-related osteoporosis without current pathological fracture (principal); Z86.73 Personal history of transient ischemic attack (TIA), and cerebral infarction without residual deficits
CPT/HCPCS: 80048; 83880; 96372; J0897

== ENCOUNTER → 2021-04-11 08:41 | Outpatient (BNVA) | payer MEDICARE, MEDICAID, SELFPAY | PROVIDERS: PCP Family Medicine; Visit Provider Anesthesiology | DX: G89.29 Other chronic pain (principal); M54.6 Pain in thoracic spine; M54.5 Low back pain; Z79.891 Long term (current) use of opiate analgesic | CPT/HCPCS: 99213 ==

== ENCOUNTER → 2021-06-03 08:07 | Outpatient (BNVA) | payer MEDICARE, MEDICAID, SELFPAY | PROVIDERS: PCP Family Medicine; Visit Provider Anesthesiology | DX: G89.29 Other chronic pain (principal); M54.6 Pain in thoracic spine; Z79.891 Long term (current) use of opiate analgesic | CPT/HCPCS: 99213 ==

== ENCOUNTER 2021-07-03 07:52 | Outpatient (CLI) | payer MEDICARE, MEDICAID, SELFPAY ==
--- NOTE | 2021-07-03 08:00 | MM_ITS ---
WS: [id number] Bilateral screening digital mammogram, 07/03/2021 Clinical Data: SCREENING Comparison: 03/17/2019, 03/01/2018, 02/18/2017, 01/27/2016, 12/31/2014, 12/13/2013, 07/30/2009. Findings: The breast parenchymal pattern shows fat replacement. No spiculated masses or clustered calcification s are seen. There are no secondary signs of carcinoma. There are numerous benign calcifications throu ghout both breasts. MM/[place] [id number] Impression: 1. Negative bilateral mammogram unchanged. 2. Recommend annual screening mammograms. BIRADS: 1-Negative FOLLOW UP: 1 Year Follow-up The CAD apparel stock checker was used.
== END 2021-07-03 07:53 | disposition home or self-care (01) ==
LOC: RADSHAW 07:57
PROVIDERS: PCP Family Medicine; Visit Provider Family Medicine
DX: Z12.31 Encounter for screening mammogram for malignant neoplasm of breast (principal)
CPT/HCPCS: 77067

== ENCOUNTER → 2021-08-05 08:02 | Outpatient (BNVA) | payer MEDICARE, MEDICAID, SELFPAY | PROVIDERS: PCP Family Medicine; Visit Provider Anesthesiology | DX: G89.29 Other chronic pain (principal); M54.50 Low back pain, unspecified; M79.605 Pain in left leg; Z79.891 Long term (current) use of opiate analgesic; Z87.891 Personal history of nicotine dependence | CPT/HCPCS: 99213 ==

== ENCOUNTER → 2021-08-12 10:50 | Outpatient (BNVA) | payer MEDICARE, MEDICAID, SELFPAY | PROVIDERS: PCP Family Medicine; Visit Provider Internal Medicine Cardiovascular Disease | DX: R06.02 Shortness of breath (principal); I50.33 Acute on chronic diastolic (congestive) heart failure; I42.9 Cardiomyopathy, unspecified | CPT/HCPCS: 80048; 83880 ==

== ENCOUNTER 2021-10-08 08:03 | Outpatient (CLI) | payer MEDICARE, MEDICAID, SELFPAY ==
[2021-10-08 08:13] VITALS: BP 119/74; PULSE 79; RESP 18; TEMP 36.7; O2SAT 98
[2021-10-08] MEDS: denosumab 60 mg SDV SUBCUT (08:18)
[2021-10-08 08:22] VITALS: BP 113/70; PULSE 78; RESP 18; TEMP 36.9; O2SAT 98
== END 2021-10-08 08:04 | disposition home or self-care (01) ==
PROVIDERS: PCP Family Medicine; Referring Provider Physician Assistant; Visit Provider Physician Assistant
DX: M81.0 Age-related osteoporosis without current pathological fracture (principal)
CPT/HCPCS: 96372; J0897

== ENCOUNTER → 2022-01-27 09:16 | Outpatient (BNVA) | payer MEDICARE, MEDICAID, SELFPAY | PROVIDERS: PCP Family Medicine; Visit Provider Podiatrist Foot & Ankle Surgery | DX: L84 Corns and callosities (principal); M20.41 Other hammer toe(s) (acquired), right foot; M20.42 Other hammer toe(s) (acquired), left foot; E11.21 Type 2 diabetes mellitus with diabetic nephropathy; L60.3 Nail dystrophy | CPT/HCPCS: 11056; 11721 ==

== ENCOUNTER → 2022-02-10 09:31 | Outpatient (BNVA) | payer MEDICARE, MEDICAID, SELFPAY | PROVIDERS: PCP Family Medicine; Visit Provider Internal Medicine Cardiovascular Disease | DX: I13.0 Hypertensive heart and chronic kidney disease with heart failure and stage 1 through stage 4 chronic kidney disease, or unspecified chronic kidney disease (principal); E11.22 Type 2 diabetes mellitus with diabetic chronic kidney disease; N18.9 Chronic kidney disease, unspecified; I50.33 Acute on chronic diastolic (congestive) heart failure; Z87.891 Personal history of nicotine dependence; Z79.84 Long term (current) use of oral hypoglycemic drugs; G47.33 Obstructive sleep apnea (adult) (pediatric); E78.49 Other hyperlipidemia | CPT/HCPCS: 36415; 80048; 80061; 83880; 99214 ==

== ENCOUNTER → 2022-02-25 10:45 | Outpatient (BNVA) | payer MEDICARE, MEDICAID, SELFPAY | PROVIDERS: PCP Family Medicine; Referring Provider Nurse Practitioner Family; Visit Provider Specialist | DX: M25.562 Pain in left knee (principal); M17.12 Unilateral primary osteoarthritis, left knee; T84.84XA Pain due to internal orthopedic prosthetic devices, implants and grafts, initial encounter; S82.042S Displaced comminuted fracture of left patella, sequela; Y83.8 Other surgical procedures as the cause of abnormal reaction of the patient, or of later complication, without mention of misadventure at the time of the procedure | CPT/HCPCS: 73560; 73565; 99204 ==

== ENCOUNTER 2022-03-06 07:44 | Day surgery (SDC) | payer MEDICARE, MEDICAID, SELFPAY ==
[2022-03-05 10:04] VITALS: BMI 38.5
[2022-03-06] VITALS (13 sets, daily range): BP systolic 108–125; BP diastolic 59–76; PULSE 82–89; RESP 15–24; TEMP 36.7–37.5; O2SAT 93–98
--- NOTE | 2022-03-06 | XR_ITS ---
WS: [id number] Left knee, C-arm fluoroscopy, 03/06/2022 Clinical Data: hardware removal Comparison: Bilateral knees, left knee, 02/25/2022. Findings: Dr. Pool removed the wires and pins from the left patella. XR/XR knee LT 1-2V [id number] Impression: Hardware removal from left patella.
--- NOTE | 2022-03-06 | SCC_ITS ---
Procedure done: Removal patellar hardware times 4: 2 large K wires, and 2 cerclage wires 23.4 seconds of fluoroscopic guidance, for a cumulative dose of 2.26 mGy, was provided to Dr. Pool by the radiology department. C-arm images of the left knee were saved for the patient's permanent record. EBER
--- NOTE | 2022-03-06 08:28 | W.PM.OPSUD ---
Surgery/Procedure H&P Update DATE OF PROCEDURE: March 06, 2022 DATE H&P PERFORMED: 02/25/22 H&P UPDATE INFORMATION: I have reviewed H&P completed within last 30 days, I have examined patient prior to procedure, No changes to prior documentation and H&P is in [facility] EMR on date indicated PREOP DIAGNOSIS: Painful orthopedic hardware left patella PLANNED PROCEDURE: Operation Date: 03/06/22 09:30 Proposed Procedures p LEFT PATELLA HARDWARE REMOVAL 16020,T84.84XA(Left) - Natali Pool MD Related Problem List Diagnoses (1) Painful orthopaedic hardware: (2) Left patella fracture: Qualifiers: Encounter type: sequela Fracture type: closed Fracture morphology: comminuted Fracture alignment: displaced Qualified Code(s): S82.042S - Displaced comminuted fracture of left patella, sequela
--- NOTE | 2022-03-06 08:41 | ANES.PREANE2 ---
Pre-Anesthetic Assessment Height/Weight: Height 1.55 m Weight 92.533 kg Temp Pulse Resp BP Pulse Ox O2 Del Method 98.0 F 85 18 112/75 97 03/06/22 08:00 03/06/22 08:00 03/06/22 08:00 03/06/22 08:00 03/06/22 08:00 03/06/22 08:06 Preop Diagnosis: Painful orthopedic hardware left patella Operation Date: 03/06/22 09:30 Proposed Procedures p LEFT PATELLA HARDWARE REMOVAL 58010,T84.84XA(Left) - Natali Pool MD Familial anesthetic complications: None Was Beta Roberto taken within 24 hours: N/A Was Clonidine taken within 24 hours: N/A Last intake: Intake Last Liquid Date 03/05/22 Last Liquid Time 21:00 Last Solid Date 03/05/22 Last Solid Time 17:00 Social No alcohol and No tobacco Exam alert, oriented x 3, clear to auscultation bilaterally and regular rate & rhythm Airway Submandibular: within normal limits Cervical ROM: within normal limits Mallampati: Class II Pulmonary Sleep Apnea CV/HEM Coronary Artery Disease and Hypertension Metabolic Hyperlipidemia and Morbid Obesity [facility] [place] Lower Back Pain and Osteoarthritis/DJD Chronic opioid Anesthetic Plan ASA status: 3 Anesthesia: General Medications/Allergies Home Medications Medication Instructions Recorded Confirmed Last Taken Type amlodipine 5 mg tablet 5 mg PO DAILY 09/06/19 03/06/22 03/05/22 20:00 History aspirin 81 mg tablet,delayed 81 mg PO DAILY 09/06/19 03/06/22 03/05/22 20:00 History release (Adult Aspirin Regimen) bupropion HCl 150 mg 24 hr tablet, 150 mg PO DAILY 09/06/19 03/06/22 03/05/22 20:00 History extended release calcium citrate-vitamin D3 1 tab PO DAILY 09/06/19 03/06/22 03/05/22 20:00 History [Calcium Citrate + D] dexlansoprazole 60 mg 60 mg PO DAILY 09/06/19 03/06/22 03/05/22 20:00 History capsule,biphase delayed release (Dexilant) escitalopram oxalate 10 mg tablet 10 mg PO DAILY 09/06/19 03/06/22 03/05/22 20:00 History rosuvastatin 40 mg tablet (Crestor) 40 mg PO DAILY 09/06/19 03/06/22 03/05/22 20:00 History [place] 3 Fish Oil Concentrate 1,250 mg PO DAILY 01/21/21 03/06/22 03/05/22 20:00 History glipizide 10 mg tablet, extended 40 mg PO QPM 01/21/21 03/06/22 03/05/22 20:00 History release 24 hr Diabetic Shoes #1 ea 01/22/21 03/05/22 01/20/21 08:00 Rx meclizine 25 mg chewable tablet 25 mg PO TID PRN dizziness #30 tabs 01/22/21 03/06/22 12/03/21 Rx ezetimibe 10 mg tablet (Zetia) 10 mg PO DAILY #90 tabs 03/26/21 03/06/22 03/05/22 20:00 Rx furosemide 40 mg tablet 60 mg PO DAILY #135 tabs 08/20/21 03/06/22 03/05/22 07:00 Rx potassium chloride 20 mEq 20 meq PO DAILY #90 tabs 09/19/21 03/06/22 03/05/22 20:00 Rx tablet,extended release ropinirole 0.5 mg tablet 1 mg PO BID 02/10/22 03/06/22 03/05/22 20:00 History sitagliptin 50 mg tablet (Januvia) 50 mg PO QPM 02/10/22 03/06/22 03/05/22 20:00 History hydrocodone 5 mg-acetaminophen 325 1 tab PO TID PRN Pain 03/05/22 03/06/22 03/05/22 20:00 History mg tablet Allergies Allergy/AdvReac Type Severity Reaction Status Date / Time alendronate sodium Allergy Unknown Verified 03/05/22 09:54 [From Fosamax] atorvastatin [From Lipitor] Allergy Unknown Verified 03/05/22 09:54 codeine Allergy Unknown Verified 03/05/22 09:54 duloxetine [From Cymbalta] Allergy Unknown Verified 03/05/22 09:54 methylprednisolone Allergy Unknown Verified 03/05/22 09:54 Sulfa (Sulfonamide Allergy Unknown Verified 03/05/22 09:54 Antibiotics) [facility] Anesthesia Medical History Age related osteoporosis ASHD (arteriosclerotic heart disease) Chronic low back pain Chronic midline thoracic back pain CKD (chronic kidney disease) Controlled diabetes mellitus Diabetes Encounter for long-term (current) use of NSAIDs Encounter for long-term opiate analgesic use Generalized neuropathy Hyperlipidemia Hypertension Opioid contract exists MOLLY (obstructive sleep apnea) Osteoarthritis Spinal stenosis, thoracic region Surgical History Hx of carpal tunnel repair Hx of cholecystectomy Hx of knee surgery Hx of kyphoplasty Family History Father Cancer Mother Cancer Family/Other Dementia Diabetes Other Hypertension Denies family history of CAD (coronary artery disease) Clotting disorder Chronic kidney disease (CKD) Suicide Anesthesia complication Bleeding disorder Lung disease Stroke Social History Smoking and tobacco status: former smoker Second hand smoke exposure: Yes Alcohol intake: never History of recent travel: No Data Anesthesia Cardiac Studies: Echocardiogram 01/25/21 Echocardiogram Limited Views 02/13/21 Sestamibi Stress Test (Cardiology) 01/27/21
[2022-03-06 08:48] LABS: Glucose Point of Care 159 mg/dL (70-110)
[2022-03-06] MEDS: CELEcoxib 200 mg Capsule 400 MG PO (08:57)
[2022-03-06] MEDS: sodium chloride 0.9% 1,000 ML 30 ML IV (08:57)
[2022-03-06] MEDS: acetaminophen 1,000 MG/100 ML PIGGYBACK 400 MG IV (08:58)
[2022-03-06 09:26] LABS: Anion Gap 15.5 (5-19); Blood Urea Nitrogen 25 mg/dL (8-23); Calcium 9.8 mg/dL (8.5-10.5); Carbon Dioxide 27 mmol/L (22-29); Chloride 103 mmol/L (98-107); Glomerular Filtration Rate 55.5 mL/min (90-130); Glucose 182 mg/dL (65-115); Osmolality Calculated 301 mOsm/kg (285-295); Potassium 4.5 mmol/L (3.5-5.1); Sodium 141 mmol/L (136-145)
[2022-03-06] MEDS: ceFAZolin 2,000 MG in sodium chloride 0.9% (plus) 50 ML 100 MG IV (09:27)
--- NOTE | 2022-03-06 11:15 | P.OP_ITS ---
Operative Report Date of procedure: March 06, 2022 Pre-op diagnosis: Painful orthopedic hardware left patella Osteogenesis imperfecta Post-op diagnosis: Painful orthopedic hardware left patella Osteogenesis imperfecta Procedure done: Removal patellar hardware times 4: 2 large K wires, and 2 cerclage wires Specimens removed/disposition: Hardware disposed of Surgeon: Natali Pool Underground Conduit Installer: [facility] operating room technicians Anesthesia: General (Per LMA, ASA 3) Estimated blood loss (mL): 3 Tourniquet time (min): 51 (At 250 mmHg) IV fluids (mL): 800 Urine output (mL): 0 (No Carr) Complications: None Findings: Prominent hardware with healed patellar fracture Condition: stable Disposition: PACU (Then to same-day surgery for discharge to home) Brief History: Griselda Manjarrez is a 67 year old female patient with diagnosis of osteogenesis imperfecta who is here today due to left knee pain. Patient states that she has had ORIF left patella fracture with cerclage wires, and these have become quite painful for her.? Patient rated pain at 3/10 in clinic.? She has also had bilateral distal femoral shaft fractures treated with open reduction internal fixation utilizing plate and screws.? She states she also had a right total knee arthroplasty prior to her ORIF of the right lower extremity.? Her primary complaint today is that the cerclage wire in the left patella is very painful for her even to light touch. Discussion was undertaken with the patient in the office regarding removal of this hardware. She would like to proceed. Questions were answered, and consents were signed. Procedure: The patient was brought to the operating theater, and after undergoing adequate general anesthesia per LMA, ASA 3, left lower extremity was prepped and draped in usual fashion following placement of a tourniquet high on the leg. The leg was then draped free with the prepping accomplished with DuraPrep. Following prepping and draping, the leg was exsanguinated, and the tourniquet was elevated to 250 mmHg for total tourniquet time of 51 minutes. Prior to elevation of the tourniquet the following exposure of the site of surgery, a surgical pause was performed. At the time of the surgical pause we confirmed the site and side of surgery. Additionally, we confirmed the appropriate and timely administration of preoperative antibiotics. The availability of equipment was confirmed, and the patient's identity was verbalized as well. Following the surgical pause, an incision was made centering over the patella continuing proximally and distally as necessary to allow access to the painful patellar hardware. Fluoroscopy was used to identify position of the hardware. The hardware was also quite palpable. Patellar hardware included 2 large K wires as well as 2 cerclage wires. All of these appear to be offending factors and the patient's hardware prominence and pain. We are able to dissect down onto the twisted parts of the 2 cerclage wires. Also, the 2 K wires were identified with a combination of palpation and fluoroscopy. The 2 K wires were able to be removed uneventfully. The cerclage wire was removed without difficulty. The circumferential cerclage wire was very difficult to remove, and secondary to the patient's osteogenesis imperfecta, portions of it were removed to avoid any damage to the patella. Following removal of the hardware, the patella was evaluated and was found to be without further evidence of fracture. The wound was irrigated. Attention was then directed to closure. Closure was accomplished with 2-0 Monocryl in the subcutaneous tissues, and the skin was closed with a running 3-0 Monocryl. This was followed by Manoloabdenice Armstrong and Christina, 4 x 4's, ABDs, sterile soft roll, and an Pollo wrap. The patient was returned the Recovery Room in a satisfactory condition. X-rays were obtained there. The patient will be discharged home to follow-up in the office. She is advised she may be weightbearing as tolerated. Related Problem List Diagnoses (1) Painful orthopaedic hardware: (2) Left patella fracture: (3) Osteogenesis imperfecta:
[2022-03-06] MEDS: fentaNYL 50 mcg/mL INJ 2mL IVP (11:18)
[2022-03-06] MEDS: HYDROcodone-acetaminophen 5-325 mg Tablet 1 TAB PO (11:59)
--- NOTE | 2022-03-06 14:57 | ANE.PACU2 ---
Inpatient post-anesthesia follow up: Airway intact: Yes Vital signs: Temperature 98.1 F Pulse Rate 82 Respiratory Rate 16 Blood Pressure 115/64 Pulse Oximetry 93 Oxygen Delivery Me thod Room Air Oxygen Flow Rate 2 Fraction of Inspir ed Oxygen Hydration adequate: Yes Nausea and vomiting: No Pain level: 2 Mental status: Baseline
== END 2022-03-06 12:40 | disposition home or self-care (01) ==
PROVIDERS: Anesthesiology; PCP Family Medicine; Visit Provider Specialist
PROC: (CPT 20680; principal; 2022-03-06 09:30)
DX: T84.84XA Pain due to internal orthopedic prosthetic devices, implants and grafts, initial encounter (principal); S82.042S Displaced comminuted fracture of left patella, sequela; X58.XXXS Exposure to other specified factors, sequela; Q78.0 Osteogenesis imperfecta; I25.10 Atherosclerotic heart disease of native coronary artery without angina pectoris; E78.5 Hyperlipidemia, unspecified; E66.01 Morbid (severe) obesity due to excess calories; Z68.38 Body mass index [BMI] 38.0-38.9, adult; Z79.891 Long term (current) use of opiate analgesic; Z79.82 Long term (current) use of aspirin; Z79.1 Long term (current) use of non-steroidal anti-inflammatories (NSAID); E11.40 Type 2 diabetes mellitus with diabetic neuropathy, unspecified; G47.33 Obstructive sleep apnea (adult) (pediatric); M19.90 Unspecified osteoarthritis, unspecified site; E11.22 Type 2 diabetes mellitus with diabetic chronic kidney disease; I12.9 Hypertensive chronic kidney disease with stage 1 through stage 4 chronic kidney disease, or unspecified chronic kidney disease; N18.9 Chronic kidney disease, unspecified; Z87.891 Personal history of nicotine dependence
CPT/HCPCS: 20680; 36415; 36416; 73560; 76000; 80048; 82962; J1100; J2405; J2704; J3010; J7030

== ENCOUNTER → 2022-03-19 09:26 | Outpatient (BNVA) | payer MEDICARE, MEDICAID, SELFPAY | PROVIDERS: PCP Family Medicine; Visit Provider Nurse Practitioner Family | DX: Z98.890 Other specified postprocedural states (principal); Y79.2 Prosthetic and other implants, materials and accessory orthopedic devices associated with adverse incidents; X58.XXXA Exposure to other specified factors, initial encounter; T84.84XA Pain due to internal orthopedic prosthetic devices, implants and grafts, initial encounter; S82.002A Unspecified fracture of left patella, initial encounter for closed fracture | CPT/HCPCS: 73560; 99024 ==

== ENCOUNTER 2022-04-14 07:42 | Outpatient (CLI) | payer MEDICARE, MEDICAID, SELFPAY ==
[2022-04-14 08:04] VITALS: BP 123/72; PULSE 80; RESP 18; TEMP 36.4; O2SAT 98
[2022-04-14] MEDS: denosumab 60 mg SDV SUBCUT (08:12)
[2022-04-14 08:20] VITALS: BP 120/71; PULSE 76; RESP 18; TEMP 36.4; O2SAT 97
== END 2022-04-14 07:43 | disposition home or self-care (01) ==
PROVIDERS: PCP Family Medicine; Visit Provider Family Medicine
DX: M81.0 Age-related osteoporosis without current pathological fracture (principal)
CPT/HCPCS: 96372; J0897

== ENCOUNTER → 2022-06-02 09:32 | Outpatient (BNVA) | payer MEDICARE, MEDICAID, SELFPAY | PROVIDERS: PCP Family Medicine; Visit Provider Podiatrist Foot & Ankle Surgery | DX: E11.8 Type 2 diabetes mellitus with unspecified complications (principal); L84 Corns and callosities; M20.41 Other hammer toe(s) (acquired), right foot; M20.42 Other hammer toe(s) (acquired), left foot; E11.21 Type 2 diabetes mellitus with diabetic nephropathy; L60.3 Nail dystrophy; Q78.0 Osteogenesis imperfecta; M19.071 Primary osteoarthritis, right ankle and foot | CPT/HCPCS: 73610 ==

== ENCOUNTER 2022-06-02 10:01 | Outpatient (CLI) | payer MEDICARE, MEDICAID, SELFPAY | END 2022-06-02 10:02 | disposition home or self-care (01) | LOC: SPT 10:02 | PROVIDERS: PCP Family Medicine; Visit Provider Podiatrist Foot & Ankle Surgery | DX: Z46.89 Encounter for fitting and adjustment of other specified devices (principal); M19.071 Primary osteoarthritis, right ankle and foot; Q78.0 Osteogenesis imperfecta; E11.8 Type 2 diabetes mellitus with unspecified complications; L84 Corns and callosities; M20.41 Other hammer toe(s) (acquired), right foot; M20.42 Other hammer toe(s) (acquired), left foot; E11.21 Type 2 diabetes mellitus with diabetic nephropathy; L60.3 Nail dystrophy | CPT/HCPCS: 11056; 11721; 97760; 99214; L1902 ==

== ENCOUNTER 2022-06-10 12:28 | Emergency (ER) | payer MEDICARE, MEDICAID, SELFPAY ==
[2022-06-10 13:23] VITALS: BP 129/74; PULSE 84; RESP 14; TEMP 36.5; O2SAT 98; BMI 40.2
--- NOTE | 2022-06-10 13:37 | ED_ITS ---
HPI - Extremity Problem General: Chief complaint: Extremity Problem,Nontraumatic Stated complaint: right ankle pain Time Seen by Provider: 06/10/22 13:34 History of Present Illness: Patient is a 67-year-old female comes to the ED with right ankle pain. Patient sees Dr. Concepcion for her right ankle pain. Denies any injury and says she has been dealing with this pain now for couple weeks. She has been wearing an ankle brace that Dr. Concepcion told her to wear. Her pain is not improving. Most of her pain is on the medial aspect of her right ankle. She rates the pain currently a 10 out of 10. Pain worsens with weightbearing. Denies any chest pain, shortness of breath or hemoptysis. Associated symptoms: Deny chest pain, fever(s) or rash Review of Systems Const: Denies: fever(s), chills or fatigue Eyes: Denies: change in vision or eye discomfort ENMT: Denies: throat pain, odynophagia, nasal discharge or nasal congestion Card: Denies: chest pain, palpitations, edema, swelling of feet/ankles, dyspnea on exertion or orthopnea Resp: Denies: dyspnea, productive cough or non-productive cough GI: Denies: abdominal pain, nausea, vomiting, diarrhea, constipation or hematochezia : Denies: flank pain, dysuria or hematuria Musc: Reports: extremity pain (Right ankle pain); Denies: neck pain, back pain or extremity swelling Skin/Breast: Denies: rash or new lesions Neuro: Denies: headache(s), numbness in extremities or weakness in extremities PFSH ED PFSH: Medical History Age related osteoporosis ASHD (arteriosclerotic heart disease) Chronic low back pain Chronic midline thoracic back pain CKD (chronic kidney disease) Controlled diabetes mellitus Diabetes Encounter for long-term (current) use of NSAIDs Encounter for long-term opiate analgesic use Generalized neuropathy Hyperlipidemia Hypertension Opioid contract exists MOLLY (obstructive sleep apnea) Osteoarthritis Spinal stenosis, thoracic region Surgical History Hx of carpal tunnel repair Hx of cholecystectomy Hx of knee surgery Hx of kyphoplasty Family History Father Cancer Mother Cancer Family/Other Dementia Diabetes Other Hypertension Denies family history of CAD (coronary artery disease) Clotting disorder Chronic kidney disease (CKD) Suicide Anesthesia complication Bleeding disorder Lung disease Stroke Social History Smoking and tobacco status: former smoker Second hand smoke exposure: Yes Alcohol intake: never History of recent travel: No Physical Exam Const: COMMON NORMALS: patient oriented x3 HENMT: COMMON NORMALS: normocephalic HEAD & SCALP: normocephalic MOUTH: Normal oral and palatal mucosa present THROAT: posterior oropharynx normal and uvula midline Neck/C-Spine: COMMON NORMALS: supple GENERAL: Yes normal visual inspection Resp: COMMON NORMALS: normal respiratory effort, No retractions, No use of accessory muscles and clear to auscultation bilaterally AUSCULTATION: clear to auscultation bilaterally Cardio: COMMON NORMALS: regular rate, regular rhythm, S1 normal heart sound present, S2 normal heart sound present, No gallops present (Cardio), No clicks present (Cardio), No murmurs present (Cardio) and Peripheral pulses 2+ throughout RATE: regular rate RHYTHM: regular rhythm HEART SOUNDS: S1 normal heart sound present and S2 normal heart sound present PERIPHERAL PULSES: Peripheral pulses 2+ throughout GI: COMMON NORMALS: Normal to inspection, nondistended, normoactive bowel sounds present, Soft to palpation, non-tender and no masses PALPATION: Yes Soft to palpation : COMMON NORMALS: Yes no CVA tenderness BLADDER/KIDNEY EXAM: Yes no CVA tenderness Back/Pelvis: COMMON NORMALS: no CVA tenderness Extremity: COMMON NORMALS: normal to inspection NARRATIVE EXTREMITY EXAM: Right ankle?no visible deformity or ecchymosis or swelling noted. Tenderness to palpation of the medial malleolus. Neurovascular intact distally. Full range of motion. Neuro: COMMON NORMALS: patient oriented x3 GAIT: Yes Normal gait present Skin: GENERAL SKIN EXAM: dry skin Course Vital Signs: Vital signs: Vital Signs Temperature 97.7 F 06/10/22 13:23 Pulse Rate 84 06/10/22 13:23 Respiratory Rate 16 06/10/22 14:14 Blood Pressure 129/74 06/10/22 13:23 Pulse Oximetry 98 06/10/22 14:14 Oxygen Delivery Me thod 06/10/22 13:23 MDM - Extremity (Nontraumatic) Medical Decision Making Patient is a 67-year-old female comes to the ED with ankle pain. Vitals are stable. Exam of patient shows no visible deformity, ecchymosis or swelling of right ankle. She has some tenderness to palpation of the medial malleolus. Neurovascular intact distally and full range of motion. X-ray of right ankle showed no acute findings. Ultrasound venous duplex of right lower extremity showed no DVT. Patient was diagnosed with arthrosis of right ankle and was discharged home. With a prescription for ibuprofen 800 mg. Return ED precautions given. Follow-up with Dr. Concepcion in the next couple weeks. Patient understood and agreed with plan. Lab Data Radiology Impressions Ankle X-Ray 06/10/22 13:50 IMPRESSION: No acute abnormality. Discharge Plan Discharge Patient Disposition: Home Clinical Impression: Arthrosis of right ankle Condition: Stable Prescriptions: New ibuprofen 800 mg tablet 800 mg PO Q8H PRN (Reason: pain) Qty: 20 0RF No Action amlodipine 5 mg tablet 5 mg PO DAILY aspirin [Adult Aspirin Regimen] 81 mg tablet,delayed release (DR/EC) 81 mg PO DAILY escitalopram oxalate 10 mg tablet 10 mg PO DAILY rosuvastatin [Crestor] 40 mg tablet 40 mg PO DAILY bupropion HCl 150 mg tablet extended release 24 hr 150 mg PO DAILY Dexilant 60 mg capsule,biphase delayed releas 60 mg PO DAILY calcium citrate-vitamin D3 1 tab PO DAILY ropinirole 0.5 mg tablet 1 mg PO BID (DME) Diabetic Shoes See Rx Instructions .ROUTE .MEDSUPPLY Qty: 1 0RF Rx Instructions: As directed by [facility] with 3 pairs of inserts Januvia 50 mg tablet 50 mg PO QPM (DME) ASO to the right See Rx Instructions .Route .MEDSUPPLY Qty: 1 0RF Rx Instructions: As directed furosemide 40 mg tablet 60 mg PO DAILY Qty: 135 3RF Rx Instructions: Take 1 & 1/2 tabs (60mg) daily potassium chloride 20 mEq tablet extended release 20 meq PO DAILY Qty: 90 2RF ezetimibe [Zetia] 10 mg tablet 10 mg PO DAILY Qty: 90 3RF glipizide 10 mg tablet extended release 24hr 40 mg PO QPM [place] 3 Fish Oil Concentrate 1,250 mg PO DAILY meclizine 25 mg tablet,chewable 25 mg PO TID PRN (Reason: dizziness) Qty: 30 0RF hydrocodone-acetaminophen 5-325 mg Tablet 1 tab PO TID PRN (Reason: Pain) Discharge Orders: Discharge ED (Routine); Ordered 06/10/22 Ordered By: Guillermo Nuñez Referrals: Dena Mueller MD [Primary Care Provider] - Discharge Diet: Regular Discharge Activity: Increase activity as tolerated Activity Restrictions/Additional Instructions: Follow-up with medical provider as directed. Call [facility] orthopedic group to set up a follow-up appointment on right ankle pain. take medications as prescribed. Return to the ER or your medical provider if condition worsens. Please read and understand discharge instructions. Thank you for choosing [facility] for your healthcare needs today. Ple ase realize this is an emergency room and that we are providing you with a medical screening exam and this may not be complete and all inclusive of all the testing and or work up that you may need to determine your ailment or severity of your illness. It is very important that you follow up as instructed or that you return to the Emergency Department should you have concerns or if your condition changes or worsens in any way. Coding Level of Care Code ED Interpretive Naturalist for [place] Fwd Exam Comprehensive
--- NOTE | 2022-06-10 13:50 | USCV_ITS ---
Griselda Manjarrez Age: 67 Gender: F : 1955 Exam Date: 06/10/2022 14:04 Ordering Phys: Guillermo Nuñez Technologist: Jordan Davidson Exam Location: [facility] [place] Indication: rt leg pain and edema PROCEDURES: Venous duplex imaging was performed in only the right lower extremity. The following venous structures were evaluated: common femoral vein, profunda vein, proximal portion of the greater saphenous vein, superficial femoral vein, and the popliteal vein. In addition, the posterior tibial and peroneal trunk were evaluated. FINDINGS: Normal 2-D Doppler and augmentation and compressibility throughout the lower extremity venous structures. Additional imaging through the proximal calf veins also reveals no thrombus. Limited evaluation of the greater saphenous vein is patent with no thrombus. CONCLUSIONS No DVT right lower extremity. Dr. Manuela Bahena DO (Electronically Signed) Final Date: 10 June 2022 15:12 S
--- NOTE | 2022-06-10 13:50 | XRR_ITS ---
PROCEDURE INFORMATION: Exam: XR Right Ankle Exam date and time: 06/10/2022 2:19 PM Age: 67 years old Clinical indication: Pain; Ankle; Right; Additional info: Ankle pain TECHNIQUE: Imaging protocol: Radiologic exam of the Right ankle. Views: 3 or more views. COMPARISON: CR XR ankle RT min 3V* [id number] 06/02/2022 9:39 AM FINDINGS: Bones/joints: Diffuse demineralization of the bones. Plate and pin fixation in the 1st metatarsal. Severe degenerative changes of the mid tarsal joints. No acute fracture. Mild degenerative changes of the ankle mortise. Soft tissues: Ossification of the interosseous ligament XR/XR ankle RT min 3V* [id number] IMPRESSION: No acute abnormality.
[2022-06-10 14:14] VITALS: RESP 16; O2SAT 98
[2022-06-10] MEDS: morphine 4 mg/mL SDV 1 mL IM (14:14)
[2022-06-10] MEDS: ketorolac 60 mg/2 mL INJ IM (15:45)
== END 2022-06-10 16:00 | disposition home or self-care (01) ==
PROVIDERS: Emergency Provider Physician Assistant; PCP Family Medicine
DX: M19.071 Primary osteoarthritis, right ankle and foot (principal); Z79.82 Long term (current) use of aspirin; Z79.84 Long term (current) use of oral hypoglycemic drugs; Z87.891 Personal history of nicotine dependence; E78.5 Hyperlipidemia, unspecified; I12.9 Hypertensive chronic kidney disease with stage 1 through stage 4 chronic kidney disease, or unspecified chronic kidney disease; E11.22 Type 2 diabetes mellitus with diabetic chronic kidney disease; N18.9 Chronic kidney disease, unspecified
CPT/HCPCS: 73610; 93971; 96372; 99285; J1885; J2270

== ENCOUNTER → 2022-06-30 13:00 | Outpatient (BNVA) | payer MEDICARE, MEDICAID, SELFPAY | PROVIDERS: PCP Family Medicine; Visit Provider Podiatrist Foot & Ankle Surgery | DX: L84 Corns and callosities (principal); M20.41 Other hammer toe(s) (acquired), right foot; M20.42 Other hammer toe(s) (acquired), left foot; E11.21 Type 2 diabetes mellitus with diabetic nephropathy; L60.3 Nail dystrophy; M25.571 Pain in right ankle and joints of right foot; Q78.0 Osteogenesis imperfecta; M19.071 Primary osteoarthritis, right ankle and foot | CPT/HCPCS: 99213 ==

== ENCOUNTER 2022-07-03 12:59 | Outpatient (CLI) | payer MEDICARE, MEDICAID, SELFPAY ==
--- NOTE | 2022-07-03 13:10 | MM_ITS ---
WS: [id number] BILATERAL 3D TOMOSYNTHESIS DIGITAL SCREENING MAMMOGRAPHY WITH CAD CLINICAL INFORMATION: SCREENING HISTORY: Screening mammogram. No current complaints. COMPARISON: None. TECHNIQUE: Bilateral CC and MLO views. FINDINGS: Scattered fibroglandular densities bilaterally. No suspicious focal mass, asymmetry, calcifications, or architectural distortion. No evidence of malignancy. Stable benign punctate and lucent centered ca lcifications. MM/[place] [id number] IMPRESSION: BI-RADS: 2-Benign FOLLOW UP: 1 Year Follow-up Recommend return to annual screening mammography.
== END 2022-07-03 13:00 | disposition home or self-care (01) ==
PROVIDERS: PCP Family Medicine; Visit Provider Internal Medicine
DX: Z12.31 Encounter for screening mammogram for malignant neoplasm of breast (principal)
CPT/HCPCS: 77063; 77067

== ENCOUNTER 2022-07-21 06:59 | Outpatient (RCR) | payer MEDICARE, MEDICAID, SELFPAY | END 2022-08-18 23:59 | disposition home or self-care (01) | LOC: SPT 06:59 | PROVIDERS: PCP Family Medicine; Visit Provider Podiatrist Foot & Ankle Surgery | DX: M25.571 Pain in right ankle and joints of right foot (principal) | CPT/HCPCS: 97035; 97110; 97161 ==

== ENCOUNTER → 2022-08-10 12:44 | Outpatient (BNVA) | payer MEDICARE, MEDICAID, SELFPAY | PROVIDERS: PCP Family Medicine; Visit Provider Nurse Practitioner Family | DX: I25.10 Atherosclerotic heart disease of native coronary artery without angina pectoris (principal); Z87.891 Personal history of nicotine dependence; I13.0 Hypertensive heart and chronic kidney disease with heart failure and stage 1 through stage 4 chronic kidney disease, or unspecified chronic kidney disease; N18.9 Chronic kidney disease, unspecified; I50.30 Unspecified diastolic (congestive) heart failure; E11.22 Type 2 diabetes mellitus with diabetic chronic kidney disease; Z79.84 Long term (current) use of oral hypoglycemic drugs | CPT/HCPCS: 99214 ==

== ENCOUNTER 2022-08-11 06:49 | Outpatient (CLI) | payer MEDICARE, MEDICAID, SELFPAY ==
[2022-08-11 07:15] LABS: Basophils % 0.5 %; Eosinophils # 0.1 10^3/uL (0.0-0.8); Eosinophils % 1.3 %; Hematocrit 38.3 % (37.0-47.0); Hemoglobin 11.5 g/dL (11.5-15.3); Lymphocytes # 2.1 10^3/uL (0.8-4.8); Lymphocytes % 24.6 %; Mean Corpuscular Volume 96.5 fl (81-99); Monocytes # 0.8 10^3/uL (0.2-0.9); Monocytes % 8.8 %; Neutrophils % 64.4 %; Nucleated Red Blood Cells % 0 %; Platelet Count 235 10^3/cmm (130-400); Red Blood Count 3.97 10^6/uL (4.1-5.3); Red Cell Distribution Width 13.9 % (12.1-15.1); White Blood Count 8.5 10^3/uL (4.0-10.0)
[2022-08-11 07:47] LABS: Anion Gap 13.3 (5-19); Blood Urea Nitrogen 17 mg/dL (8-23); Calcium 9.6 mg/dL (8.5-10.5); Carbon Dioxide 27 mmol/L (22-29); Chloride 100 mmol/L (98-107); Chol HDL Ratio 2.49 mg/dL (0.0-4.40); Cholesterol 142 mg/dL (0-200); Glomerular Filtration Rate 44.9 mL/min (90-130); Glucose 117 mg/dL (65-115); HDL Cholesterol 57 mg/dL (60-100); LDL Cholesterol Calculated 63 mg/dL (50-129); LDL HDL Ratio 1.11 RATIO (0.00-3.22); Osmolality Calculated 285 mOsm/kg (285-295); Potassium 4.3 mmol/L (3.5-5.1); Sodium 136 mmol/L (136-145); Triglycerides 109 mg/dL (0-150)
== END 2022-08-11 06:50 | disposition home or self-care (01) ==
LOC: LAB 06:52
PROVIDERS: PCP Family Medicine; Visit Provider Nurse Practitioner Family
DX: I10 Essential (primary) hypertension (principal); I25.10 Atherosclerotic heart disease of native coronary artery without angina pectoris
CPT/HCPCS: 36415; 80048; 80061; 85025

== ENCOUNTER → 2022-09-01 12:43 | Outpatient (BNVA) | payer MEDICARE, MEDICAID, SELFPAY | PROVIDERS: PCP Family Medicine; Visit Provider Podiatrist Foot & Ankle Surgery | DX: E11.21 Type 2 diabetes mellitus with diabetic nephropathy (principal); L84 Corns and callosities; M20.41 Other hammer toe(s) (acquired), right foot; M20.42 Other hammer toe(s) (acquired), left foot; L60.3 Nail dystrophy; Q78.0 Osteogenesis imperfecta; M19.071 Primary osteoarthritis, right ankle and foot | CPT/HCPCS: 11721 ==

== ENCOUNTER 2022-10-15 08:17 | Outpatient (RCR) | payer MEDICARE, MEDICAID, SELFPAY ==
[2022-10-15 08:19] VITALS: BP 114/72; PULSE 85; RESP 18; TEMP 36.4; O2SAT 98
[2022-10-15] MEDS: denosumab 60 mg SDV SUBCUT (08:30)
[2022-10-15 08:35] VITALS: BP 104/70; PULSE 83; RESP 18; TEMP 36.3; O2SAT 96
== END 2022-10-16 23:59 | disposition home or self-care (01) ==
LOC: ONCMED 08:17
PROVIDERS: PCP Family Medicine; Visit Provider Physician Assistant
DX: M81.0 Age-related osteoporosis without current pathological fracture (principal)
CPT/HCPCS: 96372; J0897

== ENCOUNTER 2022-10-23 18:01 | Emergency (ER) | payer MEDICARE, MEDICAID, SELFPAY ==
[2022-10-23 18:02] VITALS: BP 153/79; PULSE 113; RESP 16; TEMP 37.1; O2SAT 95
--- NOTE | 2022-10-23 18:21 | XRR_ITS ---
PROCEDURE INFORMATION: Exam: XR Left Hip Exam date and time: 10/23/2022 6:12 PM Age: 67 years old Clinical indication: Hip pain; Left hip; Additional info: Injury, fall TECHNIQUE: Imaging protocol: Radiologic exam of the left hip. Views: 2 or 3 views hip with pelvis when performed. COMPARISON: CT abdomen pelvis w con* [id number] 01/23/2021 5:20 PM FINDINGS: Bones/joints: No fracture or dislocation of the hip. No fracture of the visible left hemipelvis. Degenerative changes at the greater trochanter. Mild acetabular spurring. Soft tissues: Unremarkable. XR/XR hip LT 2-3V wo/w pel* [id number] IMPRESSION: No fracture.
--- NOTE | 2022-10-23 18:31 | CTR_ITS ---
PROCEDURE INFORMATION: Exam: CT Pelvis Without Contrast; Skeletal Exam date and time: 10/23/2022 6:59 PM Age: 67 years old Clinical indication: Injury or trauma; Fall; Blunt trauma (contusions or hematomas); Left; Hip TECHNIQUE: Imaging protocol: Computed tomography of the pelvis without contrast. Exam focused on the skeleton. Radiation optimization: All CT scans at this facility use at least one of these dose optimization techniques: automated exposure control; mA and/or kV adjustment per patient size (includes targeted exams where dose is matched to clinical indication); or iterative reconstruction. REPORTING DATA: Count of CT and Cardiac NM exams in prior 12 months: This patient has received 2 known CTs and 0 known cardiac nuclear medicine studies in the 12 months prior to the current study. COMPARISON: CT abdomen pelvis w con* [id number] 01/23/2021 5:20 PM RADIATION DOSE METRICS: Total DLP (mGy-cm): 693.2 FINDINGS: Retroperitoneal space: No retroperitoneal hemorrhage. Intraperitoneal space: No hemoperitoneum in the pelvis. Bones/joints: There is severe diffuse osteopenia. The right sacral ala is particularly osteopenic. No fracture. No change in appearance from prior scan. Sacrococcygeal alignment is normal. No fracture of the iliac bones. No fracture of the pubic rami. No fracture or dislocation of the hips. There is mild osteoarthritis of the hips. Soft tissues: No soft tissue hematoma or fluid collection. CT/CT pelvis wo con [id number] IMPRESSION: No fracture of the pelvis
--- NOTE | 2022-10-23 18:31 | CTR_ITS ---
PROCEDURE INFORMATION: Exam: CT Lumbar Spine Without Contrast Exam date and time: 10/23/2022 6:59 PM Age: 67 years old Clinical indication: Injury or trauma; Fall; Blunt trauma (contusions or hematomas) TECHNIQUE: Imaging protocol: Computed tomography of the lumbar spine without contrast. Radiation optimization: All CT scans at this facility use at least one of these dose optimization techniques: automated exposure control; mA and/or kV adjustment per patient size (includes targeted exams where dose is matched to clinical indication); or iterative reconstruction. REPORTING DATA: Count of CT and Cardiac NM exams in prior 12 months: This patient has received 2 known CTs and 0 known cardiac nuclear medicine studies in the 12 months prior to the current study. COMPARISON: CR XR lumbar spine min 4V [id number] 02/12/2022 7:17 AM RADIATION DOSE METRICS: Total DLP (mGy-cm): 1532.6 FINDINGS: Bones/joints: There is diffuse osteopenia. There are multiple compression deformities. Thoracic spine previously reported. There are moderate to severe L1-L3 compression fractures which are stable compared with prior scan. There is ankylosis across L4 and L5 with mild compression of the endplates. There is no fracture of the posterior elements. Are multiple disc bulges. No central stenosis. Soft tissues: Unremarkable. CT/CT lumbar spine wo con* [id number] IMPRESSION: 1. Severe osteopenia with multiple compression fractures which are chronic and unchanged from prior scan. 2. No acute fracture.
--- NOTE | 2022-10-23 18:31 | CTR_ITS ---
PROCEDURE INFORMATION: Exam: CT Thoracic Spine Without Contrast Exam date and time: 10/23/2022 6:59 PM Age: 67 years old Clinical indication: Injury or trauma; Fall; Blunt trauma (contusions or hematomas) TECHNIQUE: Imaging protocol: Computed tomography of the thoracic spine without contrast. Radiation optimization: All CT scans at this facility use at least one of these dose optimization techniques: automated exposure control; mA and/or kV adjustment per patient size (includes targeted exams where dose is matched to clinical indication); or iterative reconstruction. REPORTING DATA: Count of CT and Cardiac NM exams in prior 12 months: This patient has received 2 known CTs and 0 known cardiac nuclear medicine studies in the 12 months prior to the current study. COMPARISON: CT thoracic spin wo con* [id number] 08/31/2017 12:03 PM RADIATION DOSE METRICS: Total DLP (mGy-cm): 1088.5 FINDINGS: Bones/joints: There is diffuse osteopenia with multiple compression deformities. There is severe compression of the T3 vertebra with prior kyphoplasty. There is methylmethacrylate extending into the spinal canal at this level the right of midline. This narrows the spinal canal to the right of midline. No change from prior thoracic spine CT. There are chronic compression mild T4 and T5 and moderate T6 compression fractures unchanged from prior thoracic spine CT. There is prior kyphoplasty at T7 and T8. These vertebra are severely compressed. The appearance is stable compared with prior thoracic spine CT. There is moderate T9 and moderate to severe T10 compression fractures stable compared with prior scan. There is milder compression of T11 and T12 also stable. No new compression fracture is identified. There is ankylosis across multiple facets. This extends from T6 into the lumbar spine. No fracture of the posterior elements. There is a mild scoliosis. Alignment is otherwise normal. There are small posterior osteophytes and disc bulges. No osseous spinal stenosis. There are multiple old healed rib fractures. There are acute fractures of the posterior ribs on the right at T8 and T9. Soft tissues: Unremarkable. CT/CT thoracic spin wo con* [id number] IMPRESSION: 1. Severe osteopenia with multiple thoracic compression fractures and vertebroplasty. These are stable when compared to prior CT. 2. Acute fractures of the right 8th and 9th posterior ribs. Multiple old rib fractures.
--- NOTE | 2022-10-23 18:32 | W.ED.FALL ---
HPI - Fall General: Chief Complaint: Fall Stated Complaint: fall Time Seen by Provider: 10/23/22 18:05 Source: patient and EMS Mode of arrival: EMS Limitations: no limitations History of Present Illness: 67-year-old female who had a ground-level fall she states that she fell onto her left side she has some left hip pain but states she has back pain in her lumbar and thoracic spine. States pain is sharp in nature rates an 8 out of 10 she had multiple surgeries and multiple fractures in the past she does have a history osteogenesis imperfecta. She denies hitting her head denies any loss consciousness. Associated symptoms-after fall: Denies abdominal pain, chest pain or headache(s) Review of Systems Const: Denies: fever(s), chills, body aches or change in appetite Eyes: Denies: blurry vision or eye discomfort ENMT: Denies: throat pain or dental pain Card: Denies: chest pain Resp: Denies: dyspnea GI: Denies: abdominal pain, nausea, vomiting or diarrhea : Denies: dysuria Musc: Reports: back pain and extremity pain Skin/Breast: Denies: rash Neuro: Denies: headache(s) Psych: Denies: depression Mansoor/Lymph: Denies: easy bruising All/Imm: Denies: urticaria PFSH ED PFSH: Medical History Age related osteoporosis ASHD (arteriosclerotic heart disease) Chronic low back pain Chronic midline thoracic back pain CKD (chronic kidney disease) Controlled diabetes mellitus Diabetes Encounter for long-term (current) use of NSAIDs Encounter for long-term opiate analgesic use Generalized neuropathy Hyperlipidemia Hypertension Opioid contract exists MOLLY (obstructive sleep apnea) Osteoarthritis Spinal stenosis, thoracic region Surgical History Hx of carpal tunnel repair Hx of cholecystectomy Hx of knee surgery Hx of kyphoplasty Family History Father Cancer Mother Cancer Family/Other Dementia Diabetes Other Hypertension Denies family history of CAD (coronary artery disease) Clotting disorder Chronic kidney disease (CKD) Suicide Anesthesia complication Bleeding disorder Lung disease Stroke Social History Smoking and tobacco status: former smoker Second hand smoke exposure: Yes Alcohol intake: never Physical Exam Const: COMMON NORMALS: no acute distress, patient oriented x3 and healthy appearing HENMT: COMMON NORMALS: normocephalic and atraumatic HEAD & SCALP: normocephalic and atraumatic Eye: COMMON NORMALS: Equal, round and reactive pupils present and EOMs intact bilaterally PUPIL: Yes Equal, round and reactive pupils present Neck/C-Spine: COMMON NORMALS: full ROM and supple Chest: COMMONS NORMALS: normal inspection of the chest and normal palpation of entire chest wall Resp: COMMON NORMALS: normal respiratory effort, No retractions, No use of accessory muscles and clear to auscultation bilaterally AUSCULTATION: clear to auscultation bilaterally Cardio: COMMON NORMALS: regular rate, regular rhythm and No murmurs present (Cardio) RATE: regular rate RHYTHM: regular rhythm GI: COMMON NORMALS: Normal to inspection, nondistended, normoactive bowel sounds present, Soft to palpation, non-tender and no masses PALPATION: Yes Soft to palpation Back/Pelvis: OTHER: Tenderness along lumbar and thoracic spine Extremity: COMMON NORMALS: normal to inspection and full ROM Neuro: COMMON NORMALS: patient oriented x3, moves all extremities and no focal motor deficits Psych: COMMON NORMALS: mental status grossly normal, Normal thought process present and cooperative THOUGHT PROCESS: Normal thought process present Skin: COMMON NORMALS: no rashes or lesions noted and no wounds GENERAL SKIN EXAM: no rashes or lesions noted Course Vital Signs: Vital signs: Vital Signs Temperature 98.8 F 10/23/22 18:02 Pulse Rate 102 H 10/23/22 21:18 Respiratory Rate 14 10/23/22 21:18 Blood Pressure 132/78 10/23/22 21:18 Pulse Oximetry 93 10/23/22 21:18 Oxygen Delivery Me thod 10/23/22 20:08 MDM - Fall Medical Decision Making Patient presents after a fall she does have oxygen imperfecta with multiple chronic fractures she does have 2 rib fractures are seen her chest x-ray looks normal she is ambulatory now her pains improved she had no head or neck injury she is stable for discharge she is to follow-up with PCP and return if worsening. Lab Data 10/23/22 20:06 10/23/22 20:06 Radiology Impressions Hip/Pelvis X-Ray 10/23/22 18:21 IMPRESSION: No fracture. Lumbar Spine CT 10/23/22 18:31 IMPRESSION: 1. Severe osteopenia with multiple compression fractures which are chronic and unchanged from prior scan. 2. No acute fracture. Pelvis CT 10/23/22 18:31 IMPRESSION: No fracture of the pelvis Thoracic Spine CT 10/23/22 18:31 IMPRESSION: 1. Severe osteopenia with multiple thoracic compression fractures and vertebroplasty. These are stable when compared to prior CT. 2. Acute fractures of the right 8th and 9th posterior ribs. Multiple old rib fractures. Chest X-Ray 10/23/22 19:54 IMPRESSION: No acute findings Laboratory Results WBC 12.7 10^3/uL (4.0-10.0) H 10/23/22 20:06 RBC 4.13 10^6/uL (4.1-5.3) 10/23/22 20:06 Hgb 12.3 g/dL (11.5-15.3) 10/23/22 20:06 Hct 39.9 % (37.0-47.0) 10/23/22 20:06 MCV 96.6 fl (81-99) 10/23/22 20:06 MCH 29.8 pg (28.0-34.0) 10/23/22 20:06 MCHC 30.8 g/dL (30.0-36.0) 10/23/22 20:06 RDW 13.4 % (12.1-15.1) 10/23/22 20:06 Plt Count 250 10^3/cmm (130-400) 10/23/22 20:06 MPV 9.3 fL (7.4-10.4) 10/23/22 20:06 Neut % (Auto) 78.8 % 10/23/22 20:06 Lymph % (Auto) 13.2 % 10/23/22 20:06 Duchesne % (Auto) 6.5 % 10/23/22 20:06 Eos % (Auto) 0.3 % 10/23/22 20:06 Baso % (Auto) 0.5 % 10/23/22 20:06 Neut # (Auto) 10.03 10^3/uL (1.8-7.7) H 10/23/22 20:06 Lymph # (Auto) 1.7 10^3/uL (0.8-4.8) 10/23/22 20:06 Duchesne # (Auto) 0.8 10^3/uL (0.2-0.9) 10/23/22 20:06 Eos # (Auto) 0.0 10^3/uL (0.0-0.8) 10/23/22 20:06 Baso # (Auto) 0.1 10^3/uL (0.0-0.1) 10/23/22 20:06 Nucleated RBC % (auto) 0 % 10/23/22 20:06 Nucleated RBCs # 0.0 /100WBC 10/23/22 20:06 Sodium 137 mmol/L (136-145) 10/23/22 20:06 Potassium 4.7 mmol/L (3.5-5.1) 10/23/22 20:06 Chloride 101 mmol/L (98-107) 10/23/22 20:06 Carbon Dioxide 24 mmol/L (22-29) 10/23/22 20:06 Anion Gap 16.7 (5-19) 10/23/22 20:06 BUN 23 mg/dL (8-23) 10/23/22 20:06 Creatinine 1.0 mg/dL (0.5-0.9) H 10/23/22 20:06 GFR Calculation 55.5 mL/min (90-130) L 10/23/22 20:06 Glucose 343 mg/dL (65-115) H 10/23/22 20:06 Calculated Osmolality 301 mOsm/kg (285-295) H 10/23/22 20:06 Calcium 8.9 mg/dL (8.5-10.5) 10/23/22 20:06 Total Bilirubin 0.2 mg/dL (0.15-1.2) 10/23/22 20:06 AST 17 U/L (0-32) 10/23/22 20:06 ALT 7 U/L (0-33) 10/23/22 20:06 Alkaline Phosphatase 111 U/L (35-105) H 10/23/22 20:06 Total Protein 7.7 g/dL (6.6-8.7) 10/23/22 20:06 Albumin 4.2 g/dL (3.5-5.2) 10/23/22 20:06 Globulin 3.5 g/dL (1.3-4.6) 10/23/22 20:06 Discharge Plan Discharge Patient Disposition: Home Clinical Impression: Fall, Closed rib fracture, Chronic low back pain Condition: Stable Prescriptions: No Action amlodipine 5 mg tablet 5 mg PO DAILY aspirin [Adult Aspirin Regimen] 81 mg tablet,delayed release (DR/EC) 81 mg PO DAILY escitalopram oxalate 10 mg tablet 10 mg PO DAILY rosuvastatin [Crestor] 40 mg tablet 40 mg PO DAILY bupropion HCl 150 mg tablet extended release 24 hr 150 mg PO DAILY Dexilant 60 mg capsule,biphase delayed releas 60 mg PO DAILY calcium citrate-vitamin D3 1 tab PO DAILY ropinirole 0.5 mg tablet 1 mg PO BID (DME) Diabetic Shoes See Rx Instructions .ROUTE .MEDSUPPLY Qty: 1 0RF Rx Instructions: As directed by [facility] with 3 pairs of inserts Januvia 50 mg tablet 50 mg PO QPM (DME) ASO to the right See Rx Instructions .Route .MEDSUPPLY Qty: 1 0RF Rx Instructions: As directed potassium chloride 20 mEq tablet extended release 20 meq PO DAILY Rx Instructions: When I take them Trulicity 0.75 mg/0.5 mL pen injector 0.75 mg SUBCUT .Weekly ezetimibe [Zetia] 10 mg tablet 10 mg PO DAILY Qty: 90 3RF furosemide 40 mg tablet 60 mg PO DAILY Qty: 180 3RF Rx Instructions: Take 1 & 1/2 tabs (60mg) daily Takes when she is home glipizide 10 mg tablet extended release 24hr 40 mg PO QPM [place] 3 Fish Oil Concentrate 1,250 mg PO DAILY hydrocodone-acetaminophen 5-325 mg Tablet 1 tab PO TID PRN (Reason: Pain) Discharge Orders: Discharge ED (Routine); Ordered 10/23/22 Ordered By: Riri Coates Referrals: Dena Mueller MD [Primary Care Provider] - 1-3 days Discharge Diet: Advance as tolerated Discharge Activity: Resume usual activity Patient Instructions: Rib Fracture (ED) Coding Level of Care Code ED Floatlight Powder Mixer for Ainsley Daigle
[2022-10-23] MEDS: HYDROmorphone 1 mg/mL INJ 1 mL IVP ×2 (18:42→19:57)
[2022-10-23] MEDS: ondansetron 2 mg/ML SDV 2 mL 4 MG IVP (18:42)
[2022-10-23 19:38] VITALS: PULSE 106; RESP 18; O2SAT 97
--- NOTE | 2022-10-23 19:54 | XRR_ITS ---
PROCEDURE INFORMATION: Exam: XR Chest Exam date and time: 10/23/2022 7:59 PM Age: 67 years old Clinical indication: Chest wall pain; Additional info: Cp TECHNIQUE: Imaging protocol: Radiologic exam of the chest. Views: 1 view. COMPARISON: CR XR chest 1V portable [id number] 01/27/2021 6:25 PM FINDINGS: Lungs: Suboptimal inspiratory volume. No consolidation. Pleural spaces: Unremarkable. No pleural effusion. No pneumothorax. Heart/Mediastinum: Unremarkable. No cardiomegaly. Bones/joints: Old rib fractures. No acute fracture identified. Prior multilevel thoracic kyphoplasty. Thoracic spine separately reported. XR/XR chest 1V portable [id number] IMPRESSION: No acute findings
[2022-10-23 19:57] VITALS: RESP 16
[2022-10-23 20:08] VITALS: BP 150/86; PULSE 110; RESP 16; O2SAT 97
[2022-10-23 20:33] LABS: Basophils # 0.1 10^3/uL (0.0-0.1); Basophils % 0.5 %; Eosinophils % 0.3 %; Hematocrit 39.9 % (37.0-47.0); Hemoglobin 12.3 g/dL (11.5-15.3); Lymphocytes # 1.7 10^3/uL (0.8-4.8); Lymphocytes % 13.2 %; Mean Corpuscular HGB Conc 30.8 g/dL (30.0-36.0); Mean Corpuscular Hemoglobin 29.8 pg (28.0-34.0); Mean Corpuscular Volume 96.6 fl (81-99); Mean Platelet Volume 9.3 fL (7.4-10.4); Monocytes # 0.8 10^3/uL (0.2-0.9); Monocytes % 6.5 %; Neutrophils # 10.03 10^3/uL (1.8-7.7); Neutrophils % 78.8 %; Nucleated Red Blood Cells % 0 %; Platelet Count 250 10^3/cmm (130-400); Red Blood Count 4.13 10^6/uL (4.1-5.3); Red Cell Distribution Width 13.4 % (12.1-15.1); White Blood Count 12.7 10^3/uL (4.0-10.0)
--- NOTE | 2022-10-23 20:37 | PC.NURSE ---
Assisted pt to stand at bedside, pt was able to get to that position slowly. C/O feeling light headed and nauseated once up. Reported increased pain right posterior ribs with movement. Pt O2 saturation 85% after sitting up, O2 on at 2L/NC
[2022-10-23 20:40] LABS: Alanine Aminotransferase 7 U/L (0-33); Albumin Level 4.2 g/dL (3.5-5.2); Alkaline Phosphatase 111 U/L (35-105); Anion Gap 16.7 (5-19); Aspartate Amino Transferase 17 U/L (0-32); Blood Urea Nitrogen 23 mg/dL (8-23); Calcium 8.9 mg/dL (8.5-10.5); Carbon Dioxide 24 mmol/L (22-29); Chloride 101 mmol/L (98-107); Globulin 3.5 g/dL (1.3-4.6); Glomerular Filtration Rate 55.5 mL/min (90-130); Glucose 343 mg/dL (65-115); Osmolality Calculated 301 mOsm/kg (285-295); Potassium 4.7 mmol/L (3.5-5.1); Sodium 137 mmol/L (136-145); Total Bilirubin 0.2 mg/dL (0.15-1.2); Total Protein 7.7 g/dL (6.6-8.7)
[2022-10-23] MEDS: oxyCODONE-APAP 10-325 mg Tablet 1 TAB PO (21:05)
[2022-10-23 21:18] VITALS: BP 132/78; PULSE 102; RESP 14; O2SAT 93
== END 2022-10-23 21:19 | disposition home or self-care (01) ==
PROVIDERS: Emergency Provider Emergency Medicine; PCP Family Medicine
DX: G89.29 Other chronic pain (principal); M54.50 Low back pain, unspecified; S22.41XA Multiple fractures of ribs, right side, initial encounter for closed fracture; Z79.82 Long term (current) use of aspirin; Z79.85 Long-term (current) use of injectable non-insulin antidiabetic drugs; Z79.84 Long term (current) use of oral hypoglycemic drugs; Z87.891 Personal history of nicotine dependence; E11.22 Type 2 diabetes mellitus with diabetic chronic kidney disease; I12.9 Hypertensive chronic kidney disease with stage 1 through stage 4 chronic kidney disease, or unspecified chronic kidney disease; N18.9 Chronic kidney disease, unspecified; E78.5 Hyperlipidemia, unspecified; W18.30XA Fall on same level, unspecified, initial encounter
CPT/HCPCS: 36415; 71045; 72128; 72131; 72192; 73502; 80053; 85025; 96374; 96375; 96376; 99285; J1170; J2405

== ENCOUNTER 2022-11-03 15:35 | Emergency (ER) | payer MEDICARE, MEDICAID, SELFPAY ==
[2022-11-03 15:40] VITALS: BP 170/87; PULSE 101; RESP 18; TEMP 36.4; O2SAT 99
--- NOTE | 2022-11-03 15:43 | XRR_ITS ---
PROCEDURE INFORMATION: Exam: XR Right Ribs with PA Chest Exam date and time: 11/03/2022 4:19 PM Age: 67 years old Clinical indication: Chest wall pain; Right; Additional info: Right rib pain TECHNIQUE: Imaging protocol: Radiologic exam of the right ribs with PA chest. Views: 3 views COMPARISON: CR (CHEST, ) 10/23/2022 7:59 PM FINDINGS: Lungs: Atelectasis in the right lung base. Pleural spaces: Increased small right pleural effusion. No pneumothorax. Heart/Mediastinum: Calcified mediastinal lymph nodes. Bones/joints: Displaced posterior right 3rd through 9th rib fractures, new since the prior study. Old lateral right rib fractures. Barton in the left humeral head. XR/XR ribs RT mn 3V w [id number] IMPRESSION: 1. Multiple acute appearing posterior right rib fractures. 2. Increased small right pleural effusion or hemothorax.
[2022-11-03] MEDS: HYDROmorphone 1 mg/mL INJ 1 mL IM (16:01)
--- NOTE | 2022-11-03 16:12 | W.ED.FALL ---
Documented by User: [email or web address] Tuttle 11/04/22 07:14 HPI - Fall General: Chief Complaint: Fall Stated Complaint: Right side rib pain Time Seen by Provider: 11/03/22 15:45 History of Present Illness: Patient is a 67-year-old female comes to the ED with right rib pain. Patient was seen here in the ED for a fall back on October 23 and was diagnosed with rib fractures on the right side. Patient says her pain has not gotten any better and she states that it feels worse. Pain is in the right posterior ribs and radiates around to the front of her chest. she rates it a 10 out of 10. Pain worsens with movement or if she takes a deep breath. Denies any fevers or cough. Denies any fall or reinjury. Associated symptoms-after fall: Denies abdominal pain, chest pain, headache(s), hematuria or neck pain Review of Systems Const: Denies: fever(s), chills or fatigue Eyes: Denies: change in vision or eye discomfort ENMT: Denies: throat pain, odynophagia, nasal discharge or nasal congestion Card: Denies: chest pain, palpitations, edema, swelling of feet/ankles, dyspnea on exertion or orthopnea Resp: Denies: dyspnea, productive cough or non-productive cough GI: Denies: abdominal pain, nausea, vomiting, diarrhea, constipation or hematochezia : Denies: flank pain, dysuria or hematuria Musc: Reports: other (Right-sided rib pain); Denies: neck pain, back pain or extremity swelling Skin/Breast: Denies: rash or new lesions Neuro: Denies: headache(s), numbness in extremities or weakness in extremities PFS ED PFSH: Medical History Age related osteoporosis ASHD (arteriosclerotic heart disease) Chronic low back pain Chronic midline thoracic back pain CKD (chronic kidney disease) Controlled diabetes mellitus Diabetes Encounter for long-term (current) use of NSAIDs Encounter for long-term opiate analgesic use Generalized neuropathy Hyperlipidemia Hypertension Opioid contract exists MOLLY (obstructive sleep apnea) Osteoarthritis Spinal stenosis, thoracic region Surgical History Hx of carpal tunnel repair Hx of cholecystectomy Hx of knee surgery Hx of kyphoplasty Family History Father Cancer Mother Cancer Family/Other Dementia Diabetes Other Hypertension Denies family history of CAD (coronary artery disease) Clotting disorder Chronic kidney disease (CKD) Suicide Anesthesia complication Bleeding disorder Lung disease Stroke Social History Smoking and tobacco status: former smoker Second hand smoke exposure: Yes Alcohol intake: never Physical Exam Const: COMMON NORMALS: patient oriented x3 and alert GENERAL APPEARANCE: cooperative HENMT: COMMON NORMALS: normocephalic HEAD & SCALP: normocephalic MOUTH: Normal oral and palatal mucosa present THROAT: posterior oropharynx normal and uvula midline Neck/C-Spine: COMMON NORMALS: supple GENERAL: Yes normal visual inspection Chest: CHEST: Yes tenderness rib right mid-scapular line involving the 7th rib, involving the 8th rib and involving the 9th rib Resp: COMMON NORMALS: normal respiratory effort, No retractions, No use of accessory muscles and clear to auscultation bilaterally AUSCULTATION: clear to auscultation bilaterally Cardio: COMMON NORMALS: regular rate, regular rhythm, S1 normal heart sound present, S2 normal heart sound present, No gallops present (Cardio), No clicks present (Cardio), No murmurs present (Cardio) and Peripheral pulses 2+ throughout RATE: regular rate RHYTHM: regular rhythm HEART SOUNDS: S1 normal heart sound present and S2 normal heart sound present PERIPHERAL PULSES: Peripheral pulses 2+ throughout GI: COMMON NORMALS: Normal to inspection, nondistended, normoactive bowel sounds present, Soft to palpation, non-tender and no masses PALPATION: Yes Soft to palpation : COMMON NORMALS: Yes no CVA tenderness BLADDER/KIDNEY EXAM: Yes no CVA tenderness Back/Pelvis: COMMON NORMALS: no CVA tenderness Extremity: COMMON NORMALS: normal to inspection Neuro: COMMON NORMALS: patient oriented x3 SENSORIUM/ORIENTATION: Yes alert GAIT: Yes Normal gait present Skin: GENERAL SKIN EXAM: dry skin Course Vital Signs: Vital signs: Vital Signs Temperature 97.6 F 11/03/22 15:40 Pulse Rate 101 H 11/03/22 15:40 Respiratory Rate 14 11/03/22 17:26 Blood Pressure 170/87 11/03/22 15:40 Pulse Oximetry 99 11/03/22 15:40 Oxygen Delivery Me thod Room Air 11/03/22 15:40 MDM - Fall Medical Decision Making Patient is a 67-year-old female comes to the ED with right rib pain. Patient was seen here in the ED for a fall back on October 23 and was diagnosed with rib fractures on the right side. Patient says her pain has not gotten any better and she states that it feels worse. Pain is in the right posterior ribs and radiates around to the front of her chest. she rates it a 10 out of 10. Pain worsens with movement or if she takes a deep breath. Denies any fall or reinjury. Denies any fevers or cough. Vitals are stable. Patient has some posterior right rib tenderness but rest of exam is benign. Right rib x-ray show multiple acute appearing posterior right rib fractures and there is some small pleural effusion at the base of the right lung. Patient was given a shot of Dilaudid to help with pain while here in the ED. I reviewed case with Dr. Bermudez and he agreed patient is stable for discharge home and to send her home on an antibiotic. Patient was stable for discharge home diagnosed with rib fractures and pneumonia and sent home with a prescription for doxycycline and a muscle relaxer. She was given strict return to ED precautions. Follow-up with PCP in the next 3 to 5 days. Patient understood and agreed with plan. Lab Data Radiology Impressions Ribs X-Ray 11/03/22 15:43 IMPRESSION: 1. Multiple acute appearing posterior right rib fractures. 2. Increased small right pleural effusion or hemothorax. Discharge Plan Discharge Patient Disposition: Home Clinical Impression: Rib fractures Qualifiers: Encounter type: subsequent encounter Fracture type: closed Laterality: right Fracture healing: with routine healing Qualified Code(s): S22.41XD - Multiple fractures of ribs, right side, subsequent encounter for fracture with routine healing Pneumonia Qualifiers: Pneumonia type: due to unspecified organism Laterality: right Lung location: lower lobe of lung Qualified Code(s): J18.9 - Pneumonia, unspecified organism Condition: Stable Prescriptions: New doxycycline hyclate 100 mg capsule 100 mg PO BID 10 Days Qty: 20 0RF methocarbamol 750 mg tablet 750 mg PO Q8H PRN (Reason: Muscle spasms and pain) Qty: 30 0RF No Action amlodipine 5 mg tablet 5 mg PO DAILY aspirin [Adult Aspirin Regimen] 81 mg tablet,delayed release (DR/EC) 81 mg PO DAILY escitalopram oxalate 10 mg tablet 10 mg PO DAILY rosuvastatin [Crestor] 40 mg tablet 40 mg PO DAILY bupropion HCl 150 mg tablet extended release 24 hr 150 mg PO DAILY Dexilant 60 mg capsule,biphase delayed releas 60 mg PO DAILY calcium citrate-vitamin D3 1 tab PO DAILY ropinirole 0.5 mg tablet 1 mg PO BID (DME) Diabetic Shoes See Rx Instructions .ROUTE .MEDSUPPLY Qty: 1 0RF Rx Instructions: As directed by [facility] with 3 pairs of inserts Januvia 50 mg tablet 50 mg PO QPM (DME) ASO to the right See Rx Instructions .Route .MEDSUPPLY Qty: 1 0RF Rx Instructions: As directed potassium chloride 20 mEq tablet extended release 20 meq PO DAILY Rx Instructions: When I take them Trulicity 0.75 mg/0.5 mL pen injector 0.75 mg SUBCUT .Weekly ezetimibe [Zetia] 10 mg tablet 10 mg PO DAILY Qty: 90 3RF furosemide 40 mg tablet 60 mg PO DAILY Qty: 180 3RF Rx Instructions: Take 1 & 1/2 tabs (60mg) daily Takes when she is home glipizide 10 mg tablet extended release 24hr 40 mg PO QPM [place] 3 Fish Oil Concentrate 1,250 mg PO DAILY hydrocodone-acetaminophen 5-325 mg Tablet 1 tab PO TID PRN (Reason: Pain) Discharge Orders: Discharge ED (Routine); Ordered 11/03/22 Ordered By: Guillermo Nuñez Referrals: Dena Mueller MD [Primary Care Provider] - Discharge Diet: Regular Discharge Activity: Increase activity as tolerated Patient Instructions: Pneumonia (ED), Fractures - Rib Activity Restrictions/Additional Instructions: Follow-up with medical provider as directed in the next 5 to 7 days for reevaluation. Use incentive spirometer to help with breathing. Take medications as prescribed. Return to the ER or your medical provider if condition worsens. Please read and understand discharge instructions. Thank you for choosing [facility] for your healthcare needs today. Please realize this is an emergency room and that we are providing you with a medical screening exam and this may not be complete and all inclusive of all the testing and or work up that you may need to determine your ailment or severity of your illness. It is very important that you follow up as instructed or that you return to the Emergency Department should you have concerns or if your condition changes or worsens in any way. Coding Level of Care Code ED Coating Machine Operator for A[facility] Fwd Documented by User: Efren Bermudez DO 11/04/22 14:51 HPI - Fall General: Chief Complaint: Fall Stated Complaint: Right side rib pain Time Seen by Provider: 11/03/22 15:45 PFSH ED PFSH: Medical History Age related osteoporosis ASHD (arteriosclerotic heart disease) Chronic low back pain Chronic midline thoracic back pain CKD (chronic kidney disease) Controlled diabetes mellitus Diabetes Encounter for long-term (current) use of NSAIDs Encounter for long-term opiate analgesic use Generalized neuropathy Hyperlipidemia Hypertension Opioid contract exists MOLLY (obstructive sleep apnea) Osteoarthritis Spinal stenosis, thoracic region Surgical History Hx of carpal tunnel repair Hx of cholecystectomy Hx of knee surgery Hx of kyphoplasty Family History Father Cancer Mother Cancer Family/Other Dementia Diabetes Other Hypertension Denies family history of CAD (coronary artery disease) Clotting disorder Chronic kidney disease (CKD) Suicide Anesthesia complication Bleeding disorder Lung disease Stroke Social History Smoking and tobacco status: former smoker Second hand smoke exposure: Yes Alcohol intake: never Course Vital Signs: Vital signs: Vital Signs Temperature 97.6 F 11/03/22 15:40 Pulse Rate 101 H 11/03/22 15:40 Respiratory Rate 14 11/03/22 17:26 Blood Pressure 170/87 11/03/22 15:40 Pulse Oximetry 99 11/03/22 15:40 Oxygen Delivery Me thod Room Air 11/03/22 15:40 MDM - Fall Medical Decision Making Patient is a 67-year-old female comes to the ED with right rib pain. Patient was seen here in the ED for a fall back on October 23 and was diagnosed with rib fractures on the right side. Patient says her pain has not gotten any better and she states that it feels worse. Pain is in the right posterior ribs and radiates around to the front of her chest. she rates it a 10 out of 10. Pain worsens with movement or if she takes a deep breath. Denies any fall or reinjury. Denies any fevers or cough. Vitals are stable. Patient has some posterior right rib tenderness but rest of exam is benign. Right rib x-ray show multiple acute appearing posterior right rib fractures and there is some small pleural effusion at the base of the right lung. Patient was given a shot of Dilaudid to help with pain while here in the ED. I reviewed case with Dr. Bermudez and he agreed patient is stable for discharge home and to send her home on an antibiotic. Patient was stable for discharge home diagnosed with rib fractures and pneumonia and sent home with a prescription for doxycycline and a muscle relaxer. She was given strict return to ED precautions. Follow-up with PCP in the next 3 to 5 days. Patient understood and agreed with plan. Chart reviewed and patient discussed with midlevel. Agree with assessment and plan. Lab Data Radiology Impressions Ribs X-Ray 11/03/22 15:43 IMPRESSION: 1. Multiple acute appearing posterior right rib fractures. 2. Increased small right pleural effusion or hemothorax. Discharge Plan Discharge Patient Disposition: Home Clinical Impression: Rib fractures Qualifiers: Encounter type: subsequent encounter Fracture type: closed Laterality: right Fracture healing: with routine healing Qualified Code(s): S22.41XD - Multiple fractures of ribs, right side, subsequent encounter for fracture with routine healing Pneumonia Qualifiers: Pneumonia type: due to unspecified organism Laterality: right Lung location: lower lobe of lung Qualified Code(s): J18.9 - Pneumonia, unspecified organism Condition: Stable Prescriptions: New doxycycline hyclate 100 mg capsule 100 mg PO BID 10 Days Qty: 20 0RF methocarbamol 750 mg tablet 750 mg PO Q8H PRN (Reason: Muscle spasms and pain) Qty: 30 0RF No Action amlodipine 5 mg tablet 5 mg PO DAILY aspirin [Adult Aspirin Regimen] 81 mg tablet,delayed release (DR/EC) 81 mg PO DAILY escitalopram oxalate 10 mg tablet 10 mg PO DAILY rosuvastatin [Crestor] 40 mg tablet 40 mg PO DAILY bupropion HCl 150 mg tablet extended release 24 hr 150 mg PO DAILY Dexilant 60 mg capsule,biphase delayed releas 60 mg PO DAILY calcium citrate-vitamin D3 1 tab PO DAILY ropinirole 0.5 mg tablet 1 mg PO BID (DME) Diabetic Shoes See Rx Instructions .ROUTE .MEDSUPPLY Qty: 1 0RF Rx Instructions: As directed by [facility] with 3 pairs of inserts Januvia 50 mg tablet 50 mg PO QPM (DME) ASO to the right See Rx Instructions .Route .MEDSUPPLY Qty: 1 0RF Rx Instructions: As directed potassium chloride 20 mEq tablet extended release 20 meq PO DAILY Rx Instructions: When I take them Trulicity 0.75 mg/0.5 mL pen injector 0.75 mg SUBCUT .Weekly ezetimibe [Zetia] 10 mg tablet 10 mg PO DAILY Qty: 90 3RF furosemide 40 mg tablet 60 mg PO DAILY Qty: 180 3RF Rx Instructions: Take 1 & 1/2 tabs (60mg) daily Takes when she is home glipizide 10 mg tablet extended release 24hr 40 mg PO QPM [place] 3 Fish Oil Concentrate 1,250 mg PO DAILY hydrocodone-acetaminophen 5-325 mg Tablet 1 tab PO TID PRN (Reason: Pain) Discharge Orders: Discharge ED (Routine); Ordered 11/03/22 Ordered By: Guillermo Nuñez Referrals: Dena Mueller MD [Primary Care Provider] - Discharge Diet: Regular Discharge Activity: Increase activity as tolerated Patient Instructions: Pneumonia (ED), Fractures - Rib Activity Restrictions/Additional Instructions: Follow-up with medical provider as directed in the next 5 to 7 days for reevaluation. Use incentive spirometer to help with breathing. Take medications as prescribed. Return to the ER or your medical provider if condition worsens. Please read and understand discharge instructions. Thank you for choosing [facility] for your healthcare needs today. Please realize this is an emergency room and that we are providing you with a medical screening exam and this may not be complete and all inclusive of all the testing and or work up that you may need to determine your ailment or severity of your illness. It is very important that you follow up as instructed or that you return to the Emergency Department should you have concerns or if your condition changes or worsens in any way. Coding Level of Care Code ED Coating Machine Operator for Ainsley Daigle
[2022-11-03 17:26] VITALS: RESP 14
[2022-11-03] MEDS: oxyCODONE-APAP 5-325 mg Tablet 1 TAB PO (17:26)
== END 2022-11-03 17:31 | disposition home or self-care (01) ==
PROVIDERS: Emergency Provider Physician Assistant; PCP Family Medicine
DX: S22.41XA Multiple fractures of ribs, right side, initial encounter for closed fracture (principal); J18.9 Pneumonia, unspecified organism; Z79.85 Long-term (current) use of injectable non-insulin antidiabetic drugs; Z79.82 Long term (current) use of aspirin; Z79.84 Long term (current) use of oral hypoglycemic drugs; W19.XXXA Unspecified fall, initial encounter; I12.9 Hypertensive chronic kidney disease with stage 1 through stage 4 chronic kidney disease, or unspecified chronic kidney disease; E11.22 Type 2 diabetes mellitus with diabetic chronic kidney disease; N18.9 Chronic kidney disease, unspecified; E78.5 Hyperlipidemia, unspecified; Z87.891 Personal history of nicotine dependence
CPT/HCPCS: 71101; 96372; 99284; J1170

== ENCOUNTER → 2022-12-08 07:35 | Outpatient (BNVA) | payer MEDICARE, MEDICAID, SELFPAY | PROVIDERS: PCP Family Medicine; Visit Provider Podiatrist Foot & Ankle Surgery | DX: E11.21 Type 2 diabetes mellitus with diabetic nephropathy (principal); L84 Corns and callosities; L60.3 Nail dystrophy; M20.41 Other hammer toe(s) (acquired), right foot; M20.42 Other hammer toe(s) (acquired), left foot; Q78.0 Osteogenesis imperfecta | CPT/HCPCS: 11056; 11721 ==

== ENCOUNTER 2023-02-01 14:11 | Outpatient (CLI) | payer MEDICARE, MEDICAID, SELFPAY ==
--- NOTE | 2023-02-01 14:20 | XR_ITS ---
WS: [id number] SCREENING DEXA SCAN [facility] CLINICAL INFORMATION: OSTEOPOROSIS COMPARISON: None. FINDINGS: The LEFT forearm bone mineral density measures 0.723. This corresponds to a T score score of -1.8 and Z score of 0.2. Left femoral neck bone mineral density measures 0.731 g/cm2. This corresponds to a T score of -2.2 an d Z score of -1.6. Right femoral neck bone mineral density measures 0.676 g/cm2. This corresponds to a T score -2.6of an d Z score of -2.0. Mean femoral neck bone mineral density measures 0.704 g/cm2. This corresponds to a T score of -2.4 an d Z score of -1.8. XR/XR DEXA axial skeleton* [id number] IMPRESSION: Osteopenia LEFT forearm. Osteoporosis femoral necks.. Patient's FRAX calculated 10 year probability for major osteoporotic fracture i s 74.8 % and osteoporotic hip fracture is 45.6%. Bone mineral density in the femoral necks increased 2.5% since 2019.
== END 2023-02-01 14:12 | disposition home or self-care (01) ==
PROVIDERS: PCP Family Medicine; Visit Provider Family Medicine
DX: M85.832 Other specified disorders of bone density and structure, left forearm (principal); M81.0 Age-related osteoporosis without current pathological fracture
CPT/HCPCS: 77080

== ENCOUNTER → 2023-02-09 09:05 | Outpatient (BNVA) | payer MEDICARE, MEDICAID, SELFPAY | PROVIDERS: PCP Family Medicine; Visit Provider Podiatrist Foot & Ankle Surgery | DX: L84 Corns and callosities (principal); M20.41 Other hammer toe(s) (acquired), right foot; M20.42 Other hammer toe(s) (acquired), left foot; E11.21 Type 2 diabetes mellitus with diabetic nephropathy; L60.3 Nail dystrophy; Q78.0 Osteogenesis imperfecta | CPT/HCPCS: 11056; 11721 ==

== ENCOUNTER → 2023-02-15 10:50 | Outpatient (BNVA) | payer MEDICARE, MEDICAID, SELFPAY | PROVIDERS: PCP Family Medicine; Visit Provider Internal Medicine Cardiovascular Disease | DX: R06.02 Shortness of breath (principal); G47.33 Obstructive sleep apnea (adult) (pediatric); I50.32 Chronic diastolic (congestive) heart failure; I13.0 Hypertensive heart and chronic kidney disease with heart failure and stage 1 through stage 4 chronic kidney disease, or unspecified chronic kidney disease; E11.22 Type 2 diabetes mellitus with diabetic chronic kidney disease; N18.9 Chronic kidney disease, unspecified; I25.10 Atherosclerotic heart disease of native coronary artery without angina pectoris; E78.49 Other hyperlipidemia | CPT/HCPCS: 80048; 83880; 99214 ==

== ENCOUNTER 2023-03-07 18:26 | Emergency (ER) | payer MEDICARE, MEDICAID, SELFPAY ==
[2023-03-07 18:31] VITALS: BP 136/74; PULSE 92; RESP 16; TEMP 36.6; O2SAT 94; BMI 41.3
[2023-03-07 19:24] VITALS: BP 147/77; PULSE 90; RESP 18; O2SAT 94
--- NOTE | 2023-03-07 19:30 | CTR_ITS ---
PROCEDURE INFORMATION: Exam: CTA Head With Contrast, Arteriography Exam date and time: 03/07/2023 8:03 PM Age: 68 years old Clinical indication: Dizziness and giddiness; Patient HX: Persistent dizziness. History of vertigo. ; Additional info: Dizzy TECHNIQUE: Imaging protocol: Computed tomographic angiography of the head with contrast. Exam focused on the arteries. 3D rendering (Not supervised by radiologist): MIP and/or 3D reconstructed images were created by the technologist. Radiation optimization: All CT scans at this facility use at least one of these dose optimization techniques: automated exposure control; mA and/or kV adjustment per patient size (includes targeted exams where dose is matched to clinical indication); or iterative reconstruction. Contrast material: OMNI 350; Contrast volume: 96 ml; Contrast route: INTRAVENOUS (IV); REPORTING DATA: Count of CT and Cardiac NM exams in prior 12 months: This patient has received 3 known CTs and 0 known cardiac nuclear medicine studies in the 12 months prior to the current study. COMPARISON: CT head wo con* [id number] 03/07/2023 8:00 PM RADIATION DOSE METRICS: Total DLP (mGy-cm): 515.62 FINDINGS: ANTERIOR CIRCULATION: Right internal carotid artery: Intracranial segment is patent with no significant stenosis. No aneurysm. Right middle cerebral artery: No occlusion or significant stenosis. No aneurysm. Right anterior cerebral artery: No occlusion or significant stenosis. No aneurysm. Left internal carotid artery: Intracranial segment is patent with no significant stenosis. No aneurysm. Left middle cerebral artery: No occlusion or significant stenosis. No aneurysm. Left anterior cerebral artery: No occlusion or significant stenosis. No aneurysm. POSTERIOR CIRCULATION: Right vertebral artery: No occlusion or significant stenosis. No aneurysm. Left vertebral artery: No occlusion or significant stenosis. No aneurysm. Basilar artery: No occlusion or significant stenosis. No aneurysm. Right posterior cerebral artery: No occlusion or significant stenosis. No aneurysm. Left posterior cerebral artery: No occlusion or significant stenosis. No aneurysm. Brain: No definite mass, mass effect, or midline shift. Cerebral ventricles: No ventriculomegaly. Bones/joints: No acute fracture. T3 kyphoplasty again noted. Soft tissues: Unremarkable. PROCEDURE INFORMATION: Exam: CTA Neck With Contrast Exam date and time: 03/07/2023 8:03 PM Age: 68 years old Clinical indication: Dizziness and giddiness; Patient HX: Persistent dizziness. History of vertigo. ; Additional info: Dizzy TECHNIQUE: Imaging protocol: Computed tomographic angiography of the neck with contrast. 3D rendering (Not supervised by radiologist): MIP and/or 3D reconstructed images were created by the technologist. Radiation optimization: All CT scans at this facility use at least one of these dose optimization techniques: automated exposure control; mA and/or kV adjustment per patient size (includes targeted exams where dose is matched to clinical indication); or iterative reconstruction. Contrast material: OMNI 350; Contrast volume: 96 ml; Contrast route: INTRAVENOUS (IV); REPORTING DATA: Count of CT and Cardiac NM exams in prior 12 months: This patient has received 3 known CTs and 0 known cardiac nuclear medicine studies in the 12 months prior to the current study. COMPARISON: CT angio neck [id number] 02/17/2018 2:00 AM RADIATION DOSE METRICS: Total DLP (mGy-cm): 515.62 FINDINGS: Right common carotid artery: No stenosis. No dissection or occlusion. Right internal carotid artery: Mild stenosis at the origin. No dissection or occlusion. Right external carotid artery: No occlusion or stenosis of the origin. Left common carotid artery: No stenosis. No dissection or occlusion. Left internal carotid artery: Mild stenosis at the origin. No dissection or occlusion. Left external carotid artery: No occlusion or stenosis of the origin. Right vertebral artery: No stenosis. No dissection or occlusion. Left vertebral artery: No stenosis. No dissection or occlusion. Soft tissues: Normal. No significant soft tissue swelling. Bones/joints: No acute fracture. CT/CT angio headneck* [id number] IMPRESSION: No large vessel stenosis or occlusion. IMPRESSION: Mild stenosis at the origins of the internal carotid arteries. No severe stenosis or occlusion. REFERENCES: NASCET CRITERIA. The degree of stenosis in the cervical segment of the internal carotid artery is based on NASCET criteria. Normal is no stenosis. Mild is less than 50% stenosis. Moderate is 50-69% stenosis. Severe is 70% to 99% stenosis. Total occlusion is no detectable patent lumen.
--- NOTE | 2023-03-07 19:30 | XRR_ITS ---
PROCEDURE INFORMATION: Exam: XR Chest Exam date and time: 03/07/2023 7:40 PM Age: 68 years old Clinical indication: Other: Dizziness; Additional info: Dizzy TECHNIQUE: Imaging protocol: Radiologic exam of the chest. Views: 1 view. COMPARISON: CR XR ribs RT mn 3V w CXR1V [id number] 11/03/2022 4:19 PM FINDINGS: Lungs: Small opacity noted at the periphery of the right lung base. Pleural spaces: Blunting of the costophrenic angles which may reflect small pleural effusions. No pneumothorax. Heart/Mediastinum: Unremarkable. No cardiomegaly. Bones/joints: Unremarkable. XR/XR chest 1V portable [id number] IMPRESSION: Small opacity noted at the periphery of the right lung base. This may reflect atelectasis given the potential small volume pleural effusions. Pneumonia is also possibility in the appropriate clinical context.
--- NOTE | 2023-03-07 19:30 | CTR_ITS ---
PROCEDURE INFORMATION: Exam: CT Head Without Contrast Exam date and time: 03/07/2023 8:00 PM Age: 68 years old Clinical indication: Patient HX: Persistent dizziness. History of vertigo. ; Additional info: Dizzy TECHNIQUE: Imaging protocol: Computed tomography of the head without contrast. Radiation optimization: All CT scans at this facility use at least one of these dose optimization techniques: automated exposure control; mA and/or kV adjustment per patient size (includes targeted exams where dose is matched to clinical indication); or iterative reconstruction. REPORTING DATA: Count of CT and Cardiac NM exams in prior 12 months: This patient has received 3 known CTs and 0 known cardiac nuclear medicine studies in the 12 months prior to the current study. COMPARISON: CT head wo con* [id number] 01/21/2021 9:13 PM RADIATION DOSE METRICS: Total DLP (mGy-cm): 1072.88 FINDINGS: Brain: No hemorrhage. No edema. Mild diffuse cerebral atrophy and sequela of chronic small vessel ischemic disease. No mass effect. Cerebral ventricles: No ventriculomegaly. Paranasal sinuses: Visualized sinuses are unremarkable. No fluid levels. Mastoid air cells: Visualized mastoid air cells are well aerated. Bones/joints: Unremarkable. No acute fracture. Soft tissues: Unremarkable. CT/CT head wo con* [id number] IMPRESSION: No acute intracranial abnormality.
[2023-03-07] MEDS: sodium chloride 0.9% 1,000 ML 999 ML IV (19:40)
--- NOTE | 2023-03-07 19:40 | ED_ITS ---
HPI - Dizziness General: Chief Complaint: Dizziness Stated Complaint: Dizzy Time Seen by Provider: 03/07/23 19:09 Source: patient History of Present Illness: HPI Narrative: 68-year-old female with a history of vertigo. She presents with significant dizziness that started around 430 this morning. She states her normal vertigo symptoms never last this long. Symptoms are otherwise similar. She has room spinning dizziness with nausea. No vomiting. notes she is very unstable on her feet when trying to get up. No history of fever. No significant headache. Blood pressure has been okay today she says. Her sugar has been as low as 77 but not lower. MD elicited complaint: dizziness Timing: sudden onset Severity: moderate Description: sense of movement and room spinning Associated symptoms: Reports nausea; Denies chest pain, headache(s) or vomiting Associated neuro symptoms: Deny confusion or numbness in extremities Review of Systems Const: Denies: fever(s) Eyes: Denies: change in vision ENMT: Denies: throat pain Card: Denies: chest pain Resp: Denies: dyspnea, productive cough or non-productive cough GI: Reports: nausea; Denies: abdominal pain or vomiting Musc: Denies: neck pain Neuro: Reports: difficulty walking, dizziness and vertigo; Denies: headache(s), numbness in extremities, weakness in extremities, confusion, behavioral changes, Slurred speech present or seizure-like activity PFS ED PFSH: Medical History Age related osteoporosis ASHD (arteriosclerotic heart disease) Chronic low back pain Chronic midline thoracic back pain CKD (chronic kidney disease) Controlled diabetes mellitus Diabetes Encounter for long-term (current) use of NSAIDs Encounter for long-term opiate analgesic use Generalized neuropathy Hyperlipidemia Hypertension Opioid contract exists MOLLY (obstructive sleep apnea) Osteoarthritis Spinal stenosis, thoracic region Surgical History Hx of carpal tunnel repair Hx of cholecystectomy Hx of knee surgery Hx of kyphoplasty Family History Father Cancer Mother Cancer Family/Other Dementia Diabetes Other Hypertension Denies family history of CAD (coronary artery disease) Clotting disorder Chronic kidney disease (CKD) Suicide Anesthesia complication Bleeding disorder Lung disease Stroke Social History (Reviewed 03/07/23 @ 19:42 by ALTON Graham Smoking and tobacco status: former smoker Second hand smoke exposure: Yes Alcohol intake: never Substance/Drug Use: never Physical Exam Const: COMMON NORMALS: no acute distress and alert GENERAL APPEARANCE: cooperative; not ill appearing and not frail appearing HENMT: COMMON NORMALS: normocephalic, atraumatic and Normal external nose present HEAD & SCALP: normocephalic and atraumatic FACE & SINUS: normal facial exam and face symmetric NOSE: Normal external nose present Eye: COMMON NORMALS: Equal, round and reactive pupils present and EOMs intact bilaterally PUPIL: Yes Equal, round and reactive pupils present Neck/C-Spine: GENERAL: Yes trachea midline Chest: CHEST: Yes Symmetrical chest wall rise Resp: COMMON NORMALS: normal respiratory effort, No retractions, No use of accessory muscles and clear to auscultation bilaterally AUSCULTATION: clear to auscultation bilaterally Cardio: COMMON NORMALS: regular rate and regular rhythm RATE: regular rate RHYTHM: regular rhythm GI: COMMON NORMALS: Normal to inspection, nondistended, normoactive bowel sounds present Extremity: COMMON NORMALS: no pedal edema Neuro: KARLENE COMA SCALE: document GCS findings Karlene coma scale eye opening: Spontaneous Karlene coma scale verbal response: Orientated Karlene coma scale motor response: Obey commands Karlene coma scale total score: 15 SENSORIUM/ORIENTATION: Yes alert CRANIAL NERVES: Yes CN normal except as noted COORDINATION/BALANCE: [id number] test normal and cqto-wr-ycfe test normal SPEECH: speech normal SENSORY EXAM: Yes extremities (intact) MOTOR EXAM: Pronator motor function not present, no tremor noted and Normal motor muscle tone present throughout COORDINATION: [id number]-[id number] test normal and [id number]-ft-[id number] test normal Psych: COMMON NORMALS: mental status grossly normal and speech normal SPEECH: Yes normal speech Skin: COMMON NORMALS: no rashes or lesions noted GENERAL SKIN EXAM: no rashes or lesions noted Course Vital Signs: Vital signs: Vital Signs Temperature 97.9 F 03/07/23 18:31 Pulse Rate 87 03/07/23 21:26 Respiratory Rate 14 03/07/23 21:26 Blood Pressure 111/70 03/07/23 21:26 Pulse Oximetry 97 03/07/23 21:26 Oxygen Delivery Me thod Nasal Cannula 03/07/23 21:26 Oxygen Flow Rate 2 03/07/23 21:26 MDM - Dizziness Medical Decision Making Vertigo symptoms are improved after Ativan and Zofran in the emergency depar tme. The patient has walked with minimal assistance. She is much less dizzy. Serum work-up is not remarkable. Urinalysis is negative. CRP is 3. Head CT is negative. CTA of the head neck shows only mild stenosis at the origins of the ICAs. With improvement in her symptoms, no other neurological symptoms, she will be allowed discharge. Lab Data 03/07/23:03/07/23 Radiology Impressions Chest X-Ray 03/07/23 IMPRESSION: Small opacity noted at the periphery of the right lung base. This may reflect atelectasis given the potential small volume pleural effusions. Pneumonia is also possibility in the appropriate clinical context. Head CT 03/07/23 IMPRESSION: No acute intracranial abnormality. Head/Neck CTA 03/07/23 IMPRESSION: No large vessel stenosis or occlusion. IMPRESSION: Mild stenosis at the origins of the internal carotid arteries. No severe stenosis or occlusion. REFERENCES: NASCET CRITERIA. The degree of stenosis in the cervical segment of the internal carotid artery is based on NASCET criteria. Normal is no stenosis. Mild is less than 50% stenosis. Moderate is 50-69% stenosis. Severe is 70% to 99% stenosis. Total occlusion is no detectable patent lumen. Laboratory Results WBC 8.5 10^3/uL (4.0-10.0) 03/07/23 RBC 4.02 10^6/uL (4.1-5.3) L 03/07/23 Hgb 12.2 g/dL (11.5-15.3) 03/07/23: Hct 39.4 % (37.0-47.0) 03/07/23 MCV 98.0 fl (81-99) 03/07/23 MCH 30.3 pg (28.0-34.0) 03/07/23 MCHC 31.0 g/dL (30.0-36.0) 03/07/23 RDW 13.9 % (12.1-15.1) 03/07/23 19:15 Plt Count 239 10^3/cmm (130-400) 03/07/23 19:15 MPV 9.6 fL (7.4-10.4) 03/07/23 19:15 Neut % (Auto) 59.7 % 03/07/23 19:15 Lymph % (Auto) 28.6 % 03/07/23 19:15 [place] % (Auto) 9.5 % 03/07/23 19:15 Eos % (Auto) 1.3 % 03/07/23 19:15 Baso % (Auto) 0.4 % 03/07/23 19:15 Neut # (Auto) 5.09 10^3/uL (1.8-7.7) 03/07/23 19:15 Lymph # (Auto) 2.4 10^3/uL (0.8-4.8) 03/07/23 19:15 [place] # (Auto) 0.8 10^3/uL (0.2-0.9) 03/07/23 19:15 Eos # (Auto) 0.1 10^3/uL (0.0-0.8) 03/07/23 19:15 Baso # (Auto) 0.0 10^3/uL (0.0-0.1) 03/07/23 19:15 Nucleated RBC % (auto) 0 % 03/07/23 19:15 Nucleated RBCs # 0.0 /100WBC 03/07/23 19:15 PT 13.30 SECONDS (12.1-14.9) 03/07/23 19:15 INR 0.98 (0.8-1.2) 03/07/23 19:15 APTT 23.9 SECONDS (23.9-36.7) 03/07/23 19:15 Sodium 138 mmol/L (136-145) 03/07/23 19:15 Potassium 3.9 mmol/L (3.5-5.1) 03/07/23 19:15 Chloride 99 mmol/L (98-107) 03/07/23 19:15 Carbon Dioxide 29 mmol/L (22-29) 03/07/23 19:15 Anion Gap 13.9 (5-19) 03/07/23 19:15 BUN 19 mg/dL (8-23) 03/07/23 19:15 Creatinine 1.1 mg/dL (0.5-0.9) H 03/07/23 19:15 GFR Calculation 49.5 mL/min (90-130) L 03/07/23 19:15 Glucose 135 mg/dL (65-115) H 03/07/23 19:15 Calculated Osmolality 290 mOsm/kg (285-295) 03/07/23 19:15 Calcium 9.6 mg/dL (8.5-10.5) 03/07/23 19:15 Magnesium 2.3 mg/dL (1.7-2.3) 03/07/23 19:15 Total Bilirubin 0.3 mg/dL (0.15-1.2) 03/07/23 19:15 AST 17 U/L (0-32) 03/07/23 19:15 ALT 9 U/L (0-33) 03/07/23 19:15 Alkaline Phosphatase 77 U/L (35-105) 03/07/23 19:15 Creatine Kinase 40 U/L (26-192) 03/07/23 19:15 C-Reactive Protein 3.3 mg/L (0.0-4.9) 03/07/23 19:15 Total Protein 7.7 g/dL (6.6-8.7) 03/07/23 19:15 Albumin 4.1 g/dL (3.5-5.2) 03/07/23 19:15 Globulin 3.6 g/dL (1.3-4.6) 03/07/23 19:15 Urine Color Yellow (Yellow) 03/07/23 20:22 Urine Appearance Clear (CLEAR) 03/07/23 20:22 Urine pH 6 (5-7) 03/07/23 20:22 Ur Specific [place] 1.010 (1.005-1.030) 03/07/23 20:22 Urine Protein Neg (Negative) 03/07/23 20: Urine Glucose (UA) Norm (Normal) 03/07/23 20: Urine Ketones Negative (Negative) 03/07/23 20: Urine Blood Neg (Negative) 03/07/23 20: Urine Nitrate Negative (Negative) 03/07/23 20: Urine Bilirubin Neg (Negative) 03/07/23 20:22 Urine Urobilinogen Norm mg/dL (Negative) 03/07/23 20:22 Ur Leukocyte Esterase Trace (Negative) H 03/07/23 20:22 Urine RBC 0-4 /hpf (0-2) H 03/07/23 20:22 Urine WBC 0-4 /hpf (0-5) H 03/07/23 20:22 Ur Squamous Epith Cells 0-4 /hpf (0-5) H 03/07/23 20:22 Amorphous Sediment Not Reportable 03/07/23 20:22 Urine Bacteria Trace /hpf (NONE) 03/07/23 20:22 Urine Mucus Trace /hpf 03/07/23 20:22 Discharge Plan Discharge Patient Disposition: Home Clinical Impression: Acute vestibular neuronitis Condition: Stable Prescriptions: New meclizine 25 mg tablet,chewable 25 mg PO TID PRN (Reason: dizziness) Qty: 30 0RF No Action amlodipine 5 mg tablet 5 mg PO DAILY aspirin [Adult Aspirin Regimen] 81 mg tablet,delayed release (DR/EC) 81 mg PO DAILY escitalopram oxalate 10 mg tablet 10 mg PO DAILY rosuvastatin [Crestor] 40 mg tablet 40 mg PO DAILY bupropion HCl 150 mg tablet extended release 24 hr 150 mg PO DAILY calcium citrate-vitamin D3 1 tab PO DAILY ropinirole 0.5 mg tablet 1 mg PO BID (DME) Diabetic Shoes See Rx Instructions .ROUTE .MEDSUPPLY Qty: 1 0RF Rx Instructions: As directed by [facility] with 3 pairs of inserts Januvia 50 mg tablet 50 mg PO QPM (DME) ASO to the right See Rx Instructions .Route .MEDSUPPLY Qty: 1 0RF Rx Instructions: As directed potassium chloride 20 mEq tablet extended release 20 meq PO DAILY Rx Instructions: When I take them Trulicity 0.75 mg/0.5 mL pen injector 0.75 mg SUBCUT .Weekly ezetimibe [Zetia] 10 mg tablet 10 mg PO DAILY Qty: 90 3RF furosemide 40 mg tablet 60 mg PO DAILY Qty: 180 3RF Rx Instructions: Take 1 & 1/2 tabs (60mg) daily Takes when she is home glipizide 10 mg tablet extended release 24hr 40 mg PO QPM [place] 3 Fish Oil Concentrate 1,250 mg PO DAILY hydrocodone-acetaminophen 5-325 mg Tablet 1 tab PO TID PRN (Reason: Pain) methocarbamol 750 mg tablet 750 mg PO Q8H PRN (Reason: Muscle spasms and pain) Qty: 30 0RF Discharge Orders: Discharge ED (Routine); Ordered 03/07/23 Ordered By: Braxton Dominguez Referrals: Dena Mueller MD [Primary Care Provider] - 1-3 days Patient Instructions: Vertigo (ED), Opioid Safety, Pain Management Activity Restrictions/Additional Instructions: Return for fever, weakness, language problems, vision problems, worsening dizziness despite treatment, any other concerning symptoms. Follow-up with your doctor later this week. You may take meclizine for symptoms as we discussed. Coding Level of Care Code ED Chemical Laboratory Scientist for Ainsley Daigle
[2023-03-07] MEDS: ondansetron 2 mg/ML SDV 2 mL 4 MG IVP (19:41)
[2023-03-07 19:43] LABS: Basophils % 0.4 %; Eosinophils # 0.1 10^3/uL (0.0-0.8); Eosinophils % 1.3 %; Hematocrit 39.4 % (37.0-47.0); Hemoglobin 12.2 g/dL (11.5-15.3); Lymphocytes # 2.4 10^3/uL (0.8-4.8); Lymphocytes % 28.6 %; Mean Corpuscular Hemoglobin 30.3 pg (28.0-34.0); Mean Platelet Volume 9.6 fL (7.4-10.4); Monocytes # 0.8 10^3/uL (0.2-0.9); Monocytes % 9.5 %; Neutrophils # 5.09 10^3/uL (1.8-7.7); Neutrophils % 59.7 %; Nucleated Red Blood Cells % 0 %; Platelet Count 239 10^3/cmm (130-400); Red Blood Count 4.02 10^6/uL (4.1-5.3); Red Cell Distribution Width 13.9 % (12.1-15.1); White Blood Count 8.5 10^3/uL (4.0-10.0)
[2023-03-07] MEDS: dexamethasone 10 mg/mL INJ 6 MG IVP (19:43)
[2023-03-07] MEDS: LORazepam 2 mg/mL INJ 1 mL 1 MG IVP (19:46)
[2023-03-07 19:47] LABS: INR 0.98 (0.8-1.2); Partial Thromboplastin Time 23.9 SECONDS (23.9-36.7)
[2023-03-07 19:48] VITALS: BP 144/75; PULSE 86; RESP 16; O2SAT 97
[2023-03-07 19:52] LABS: Alanine Aminotransferase 9 U/L (0-33); Albumin Level 4.1 g/dL (3.5-5.2); Alkaline Phosphatase 77 U/L (35-105); Anion Gap 13.9 (5-19); Aspartate Amino Transferase 17 U/L (0-32); Blood Urea Nitrogen 19 mg/dL (8-23); C Reactive Protein 3.3 mg/L (0.0-4.9); Calcium 9.6 mg/dL (8.5-10.5); Carbon Dioxide 29 mmol/L (22-29); Chloride 99 mmol/L (98-107); Creatine Phosphokinase 40 U/L (26-192); Globulin 3.6 g/dL (1.3-4.6); Glomerular Filtration Rate 49.5 mL/min (90-130); Glucose 135 mg/dL (65-115); Magnesium 2.3 mg/dL (1.7-2.3); Osmolality Calculated 290 mOsm/kg (285-295); Potassium 3.9 mmol/L (3.5-5.1); Sodium 138 mmol/L (136-145); Total Bilirubin 0.3 mg/dL (0.15-1.2); Total Protein 7.7 g/dL (6.6-8.7)
[2023-03-07] MEDS: iohexol 350 mg/mL 500 mL Btl (per mL) IV (20:14)
--- NOTE | 2023-03-07 20:25 | ECG_ITS ---
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 Measurements Intervals [place] Rate: 92 P: 35 MT: 156 QRS: 60 QRSD: 94 T: 15 QT: 405 QTc: 502 Interpretive Statements SINUS RHYTHM NONSPECIFIC T-WAVE ABNORMALITY Compared to ECG 01/24/2021 22:47:42 T-wave abnormality now present Sinus tachycardia no longer present Electronically Signed On 03-08-2023 11:08:50 CDT by Carli Reyes M.D. [id number]
[2023-03-07 20:33] VITALS: BP 101/56; PULSE 92; RESP 16; O2SAT 91
[2023-03-07 20:34] VITALS: BP 101/56; PULSE 89; RESP 14; O2SAT 94
[2023-03-07 21:04] LABS: Blood Urine Neg (Negative); Glucose Urine UA Norm (Normal); Ketones Urine Negative (Negative); Nitrate Urine Negative (Negative); Protein Urine Neg (Negative); Urine Appearance Clear (CLEAR); Urine Color Yellow (Yellow); pH Urine 6 (5-7)
[2023-03-07 21:05] LABS: Add Urine Culture? No; Add Urine Microscopic? YES; Bacteria Urine TRACE /hpf; Bilirubin Urine Neg (Negative); Leukocyte Esterase Urine Trace (Negative); Mucus Urine TRACE /hpf; RBC Urine 0-4 /hpf (0-2); Squamous Epithelial Cell Urine 0-4 /hpf (0-5); Urobilinogen Urine Norm (Negative); WBC Urine 0-4 /hpf (0-5)
[2023-03-07 21:26] VITALS: BP 111/70; PULSE 87; RESP 14; O2SAT 97
== END 2023-03-07 21:58 | disposition home or self-care (01) ==
PROVIDERS: Emergency Provider Emergency Medicine; PCP Family Medicine
DX: R11.0 Nausea (principal); Z87.891 Personal history of nicotine dependence; E11.22 Type 2 diabetes mellitus with diabetic chronic kidney disease; I12.9 Hypertensive chronic kidney disease with stage 1 through stage 4 chronic kidney disease, or unspecified chronic kidney disease; N18.9 Chronic kidney disease, unspecified; E78.5 Hyperlipidemia, unspecified
CPT/HCPCS: 70450; 70496; 70498; 71045; 80053; 81001; 82550; 83735; 85025; 85610; 85730; 86140; 93005; 96361; 96374; 96375; 99285; J1100; J2060; J2405; J7030; Q9967

== ENCOUNTER → 2023-04-20 14:00 | Outpatient (BNVA) | payer MEDICARE, MEDICAID, SELFPAY | PROVIDERS: PCP Family Medicine; Visit Provider Podiatrist Foot & Ankle Surgery | DX: M25.471 Effusion, right ankle (principal); E11.21 Type 2 diabetes mellitus with diabetic nephropathy; L84 Corns and callosities; L60.3 Nail dystrophy; M20.41 Other hammer toe(s) (acquired), right foot; M20.42 Other hammer toe(s) (acquired), left foot; Q78.0 Osteogenesis imperfecta; S93.491A Sprain of other ligament of right ankle, initial encounter; X50.9XXA Other and unspecified overexertion or strenuous movements or postures, initial encounter | CPT/HCPCS: 11056; 11721; 73610; 99213 ==

== ENCOUNTER 2023-07-09 08:27 | Outpatient (CLI) | payer MEDICARE, MEDICAID, SELFPAY ==
--- NOTE | 2023-07-09 08:33 | MM_ITS ---
WS: [id number] BILATERAL SCREENING DIGITAL TOMOSYNTHESIS MAMMOGRAM WITH CAD HISTORY: SCREENING COMPARISON: 07/03/2022 and 07/03/2021 Bilateral CC and MLO views with tomosynthesis and synthetic mammography submitted. Computer aided det ection analyzed. Breast composition: The breasts are almost entirely fatty. No suspicious masses, microcalcifications or architectural distortion. Numerous scattered benign calcifications in each breast. IMPRESSION: MM/[place] [id number] BI-RADS: 2-Benign FOLLOW UP: 1 Year Follow-up
== END 2023-07-09 08:28 | disposition home or self-care (01) ==
LOC: RAD 08:28
PROVIDERS: PCP Family Medicine; Visit Provider Family Medicine
DX: Z12.31 Encounter for screening mammogram for malignant neoplasm of breast (principal)
CPT/HCPCS: 77063; 77067

== ENCOUNTER 2023-07-14 07:17 | Oncology outpatient (recurring) (ONCR) | payer MEDICARE, MEDICAID, SELFPAY ==
[2023-07-14] MEDS: denosumab 60 mg SDV SUBCUT (08:10)
[2023-07-14 08:15] VITALS: BP 137/80; PULSE 81; RESP 16; O2SAT 92
== END 2023-07-18 23:59 | disposition home or self-care (01) ==
LOC: ONCMED 07:17
PROVIDERS: PCP Family Medicine; Visit Provider Family Medicine
DX: M81.0 Age-related osteoporosis without current pathological fracture (principal)
CPT/HCPCS: 96372; J0897

== ENCOUNTER 2023-07-19 20:53 | Emergency (ER) | payer MEDICARE, MEDICAID, SELFPAY ==
[2023-07-19 21:08] VITALS: BP 147/86; PULSE 100; RESP 21; TEMP 36.6; O2SAT 100; BMI 41.3
--- NOTE | 2023-07-19 21:11 | ECG_ITS ---
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 Measurements Intervals [place] Rate: 90 P: 22 ND: 157 QRS: -4 QRSD: 85 T: 28 QT: 371 QTc: 455 Interpretive Statements SINUS RHYTHM NONSPECIFIC ST & T-WAVE ABNORMALITY Compared to ECG 03/07/2023 20:25:04 No significant changes Electronically Signed On 07-20-2023 11:26:[address] OFFICER by Nguyễn Edmondson M.D. [id number] f
--- NOTE | 2023-07-19 21:24 | CTR_ITS ---
PROCEDURE INFORMATION: Exam: CT Head Without Contrast Exam date and time: 07/19/2023 9:36 PM Age: 68 years old Clinical indication: Dizziness and visual disturbance; Patient HX: Dizziness with double vision. History of vertigo. ; Additional info: Double vision, dizziness; Started 24 hrs ago TECHNIQUE: Imaging protocol: Computed tomography of the head without contrast. Radiation optimization: All CT scans at this facility use at least one of these dose optimization techniques: automated exposure control; mA and/or kV adjustment per patient size (includes targeted exams where dose is matched to clinical indication); or iterative reconstruction. Other technique: STROKE PROTOCOL was implemented. REPORTING DATA: Count of CT and Cardiac NM exams in prior 12 months: This patient has received 5 known CTs and 0 known cardiac nuclear medicine studies in the 12 months prior to the current study. COMPARISON: CT angio headneck* [id number] 03/07/2023 8:03 PM RADIATION DOSE METRICS: Total DLP (mGy-cm): 1025.18 FINDINGS: Brain: No focal hemorrhage or midline shift is identified. The ventricles and parenchyma show mild atrophy and chronic bicerebral white matter ischemic change. Cerebral ventricles: No ventriculomegaly or evidence of hydrocephalus. Paranasal sinuses: No evidence of acute sinusitis. Mastoid air cells: Visualized mastoid air cells are well aerated. Bones/joints: No displaced skull fracture is noted. Soft tissues: Unremarkable. Vasculature: Diffuse vascular calcifications are present. CT/CT head wo con* [id number] IMPRESSION: 1. No acute intracranial abnormality. 2. Mild age-related changes. 3. No significant change has occurred from 03/07/2023. ASSESSMENT: ASPECTS ([place] Stroke Program Early CT Score) is 10.
[2023-07-19 21:30] VITALS: BP 150/83; PULSE 94; RESP 18; O2SAT 99
--- NOTE | 2023-07-19 21:55 | P.HP_ITS ---
Providers/Chief Complaint Primary Care Provider: Dena Mueller MD Chief Complaint: seeing double, no balance History of Present Illness Griselda Manjarrez is a 68 year old female Medications/Allergies Home Medications Medication Instructions Recorded Confirmed Last Taken Type amlodipine 5 mg tablet 5 mg PO DAILY 09/06/19 04/20/23 03/05/22 20:00 History aspirin 81 mg tablet,delayed 81 mg PO DAILY 09/06/19 04/20/23 03/05/22 20:00 History release (Adult Aspirin Regimen) bupropion HCl 150 mg 24 hr tablet, 150 mg PO DAILY 09/06/19 04/20/23 03/05/22 20:00 History extended release calcium citrate-vitamin D3 1 tab PO DAILY 09/06/19 04/20/23 03/05/22 20:00 History [Calcium Citrate + D] escitalopram oxalate 10 mg tablet 10 mg PO DAILY 09/06/19 04/20/23 03/05/22 20:00 History rosuvastatin 40 mg tablet (Crestor) 40 mg PO DAILY 09/06/19 04/20/23 03/05/22 20:00 History [place] 3 Fish Oil Concentrate 1,250 mg PO DAILY 01/21/21 04/20/23 03/05/22 20:00 History glipizide 10 mg tablet, extended 40 mg PO QPM 01/21/21 04/20/23 03/05/22 20:00 History release 24 hr Diabetic Shoes #1 ea 01/22/21 04/20/23 01/20/21 08:00 Rx ropinirole 0.5 mg tablet 1 mg PO BID 02/10/22 04/20/23 03/05/22 20:00 History sitagliptin phosphate 50 mg tablet 50 mg PO QPM 02/10/22 04/20/23 03/05/22 20:00 History (Januvia) hydrocodone 5 mg-acetaminophen 325 1 tab PO TID PRN Pain 03/05/22 04/20/23 03/05/22 20:00 History mg tablet ezetimibe 10 mg tablet (Zetia) 10 mg PO DAILY #90 tabs 06/01/22 04/20/23 Unknown Rx ASO to the right #1 ea 06/02/22 04/20/23 Unknown Rx dulaglutide 0.75 mg/0.5 mL 0.75 mg SUBCUT .Weekly 08/10/22 04/20/23 Unknown History subcutaneous pen injector (Trulicity) potassium chloride 20 mEq 20 meq PO DAILY 08/10/22 04/20/23 Unknown History tablet,extended release furosemide 40 mg tablet 60 mg (1.5 x 40 mg) PO DAILY #180 09/03/22 04/20/23 Unknown Rx tabs methocarbamol 750 mg tablet 750 mg PO Q8H PRN Muscle spasms 11/03/22 04/20/23 Unknown Rx and pain #30 tabs meclizine 25 mg chewable tablet 25 mg PO TID PRN dizziness #30 tabs 03/07/23 04/20/23 Unknown Rx Allergies Allergy/AdvReac Type Severity Reaction Status Date / Time alendronate sodium Allergy Unknown Verified 04/20/23 13:45 [From Fosamax] atorvastatin [From Lipitor] Allergy Unknown Verified 04/20/23 13:45 codeine Allergy Unknown Verified 04/20/23 13:45 duloxetine [From Cymbalta] Allergy Unknown Verified 04/20/23 13:45 methylprednisolone Allergy Unknown Verified 04/20/23 13:45 Sulfa (Sulfonamide Allergy Unknown Verified 04/20/23 13:45 Antibiotics) PFSH Acute PFSH: Medical History Opioid contract exists Chronic low back pain Controlled diabetes mellitus Age related osteoporosis Diabetes ASHD (arteriosclerotic heart disease) Hypertension Hyperlipidemia MOLLY (obstructive sleep apnea) CKD (chronic kidney disease) Osteoarthritis Generalized neuropathy Chronic midline thoracic back pain Encounter for long-term (current) use of NSAIDs Encounter for long-term opiate analgesic use Spinal stenosis, thoracic region Surgical History Hx of carpal tunnel repair Hx of cholecystectomy Hx of knee surgery Hx of kyphoplasty Family History Father Cancer Mother Cancer Family/Other Dementia Diabetes Other Hypertension Denies family history of CAD (coronary artery disease) Clotting disorder Chronic kidney disease (CKD) Suicide Anesthesia complication Bleeding disorder Lung disease Stroke Social History Smoking and tobacco/nicotine status: former use of tobacco/nicotine Second hand smoke exposure: Yes Alcohol intake: never Substance/Drug Use: never Vitals/I&O/Wt Last Vital Signs Temp 98 F 07/19/23 21:08 Pulse 94 07/19/23 21:30 Resp 18 07/19/23 21:30 BP 150/83 07/19/23 21:30 Pulse Ox 99 07/19/23 21:30 O2 Del Method Room Air 07/19/23 21:08 Weight last 48 hrs Weight 96.162 kg Coding Level of Care Code Acute Code for Chg [place]
[2023-07-19 22:01] VITALS: BP 151/85; PULSE 95
[2023-07-19] MEDS: meclizine 25 mg tablet PO (22:01)
[2023-07-19] MEDS: scopolamine 1.5 Patch 1 PATCH TRANSDERMA (22:01)
--- NOTE | 2023-07-19 22:03 | ED_ITS ---
HPI - Dizziness 2 General: Chief Complaint: Dizziness Stated Complaint: seeing double, no balance Time Seen by Provider: 07/19/23 21:12 History of Present Illness: HPI Narrative: 68-year-old female with a history of pre tty well-controlled diabetes, mild hypertension which is well-controlled, osteogenesis imperfecta who presents to the emergency department with dizziness. She reports she woke up at about 3 AM on July 18 and was quite dizzy. She just recently got over a head cold and so thought that she was getting vertigo. However, after she woke up yesterday morning she also noticed that she was having visual disturbances. At first she described what the nurse thought to be double vision. However on further investigation, she is actually noticing that when she looks at something it seems to be rotating and sort of bouncing or vibrating [id number] while rotating. I had her close 1 eye and then closed the other eye. Symptoms improved but did not resolve. She has not had any other neurologic symptoms. No headache, sensory changes, coordination issues while at rest, muscle weakness, speech issues, etc. She did have a CTA of her head and neck in February 2023 that did not show any significant stenosis. She does take aspirin daily. She denies history of stroke or A-fib. She does have a history of peripheral neuropathy. Associated symptoms: Denies chest pain, chills, headache(s), nausea, syncope or vomiting Associated neuro symptoms: Deny numbness in extremities Review of Systems 2 General: Reports: 10 or more systems reviewed and unremarkable except in HPI and below Const: Denies: fever(s), chills or body aches Eyes: Reports: change in vision and blurry vision; Denies: blind spots, photophobia, eye discomfort, eye discharge, eye redness, increased production of tears or floaters ENMT: Denies: throat pain Card: Denies: chest pain, edema or syncope Resp: Denies: dyspnea or productive cough GI: Denies: abdominal pain, nausea, vomiting or diarrhea : Denies: flank pain, dysuria or urinary frequency Musc: Denies: neck pain, back pain, extremity pain or extremity swelling Skin/Breast: Denies: rash or erythema Neuro: Denies: headache(s), numbness in extremities, weakness in extremities, lack of coordination or difficulty walking PFS ED 2 PFSH: Medical History Opioid contract exists Chronic low back pain Controlled diabetes mellitus Age related osteoporosis Diabetes ASHD (arteriosclerotic heart disease) Hypertension Hyperlipidemia MOLLY (obstructive sleep apnea) CKD (chronic kidney disease) Osteoarthritis Generalized neuropathy Chronic midline thoracic back pain Encounter for long-term (current) use of NSAIDs Encounter for long-term opiate analgesic use Spinal stenosis, thoracic region Surgical History Hx of carpal tunnel repair Hx of cholecystectomy Hx of knee surgery Hx of kyphoplasty Family History Father Cancer Mother Cancer Family/Other Dementia Diabetes Other Hypertension Denies family history of CAD (coronary artery disease) Clotting disorder Chronic kidney disease (CKD) Suicide Anesthesia complication Bleeding disorder Lung disease Stroke Social History Smoking and tobacco/nicotine status: former use of tobacco/nicotine Second hand smoke exposure: Yes Alcohol intake: never Substance/Drug Use: never Physical Exam 2 Const: COMMON NORMALS: patient oriented x3, no limitations, alert and well nourished EXAM LIMITATIONS: no altered mental status HENMT: COMMON NORMALS: normocephalic, atraumatic and external ears normal H EAD & SCALP: normocephalic and atraumatic EXTERNAL EAR: Yes external ears normal MOUTH: no muffled voice Eye: COMMON NORMALS: Equal, round and reactive pupils present, conjunctivae normal and no scleral icterus VISUAL ACUITY: Yes other (Things appear slightly blurry and are intermittently rotating) VISUAL [place]: No peripheral vision loss, No central vision loss and No bitemporal visual field cut A LIGNMENT: Yes alignment normal PERIORBITAL: periorbital findings normal E YELID: eyelids normal CONJUNCTIVA: Yes conjunctivae normal SCLERA: scleral abnormal (Blue sclera, this makes sense as she told me later she had osteogenesis imp) PUPIL: Yes Equal, round and reactive pupils present, Yes Pupil accommodation reflex normal, No Pupils anisocoria and No Irregular pupils EOM: Yes Nystagmus present (The patient has nystagmus at the horizontal endpoints with a rotary compone) OTHER: The patient actually has nystagmus at the horizontal endpoints with a rotary component. It looks like when she looks all the way to the right she has some rotary component in a counterclockwise fashion to the observer. When she looks all the way to the left she looks to have a rotary nystagmus clockwise from the perspective of the observer. It is less pronounced when she looks up. When she is looking straight forward there is no nystagmus. A test of skew was performed. When I cover her left eye and then have her focus on a distant object with her right eye then uncover the left eye there is some minor refixation. It is not present when I cover the right eye and then uncover it. On head impulse she is able to maintain fixation on a distant object. Neck/C-Spine: COMMON NORMALS: no meningeal signs and no JVD GENERAL: Yes normal visual inspection and Yes trachea midline Resp: COMMON NORMALS: normal respiratory effort, No use of accessory muscles and clear to auscultation bilaterally AUSCULTATION: clear to auscultation bilaterally Cardio: COMMON NORMALS: no JVD, regular rate and regular rhythm RATE: r egular rate RHYTHM: regular rhythm GI: COMMON NORMALS: Soft to palpation and non-tender PALPATION: Yes Soft to palpation and No Guarding due to palpation present (GI) Extremity: COMMON NORMALS: normal to inspection Neuro: KARLENE COMA SCALE: document GCS findings [place] coma scale eye opening: Spontaneous Karlene coma scale verbal response: Orientated [place] coma scale motor response: Obey commands [place] coma scale total score: 15 COMMON NORMALS: patient oriented x3, CN's II-XII intact bilaterally (Normal with the exception of nystagmus described in the eye section), moves all extremities, no focal motor deficits and no sensory deficits noted SENSORIUM/ORIENTATION: Yes alert MENINGEAL SIGNS: Yes no meningeal signs COORDINATION/BALANCE: does not sway with eyes open, Normal rapid alternating movements of the distal upper extremity present (Neuro), Normal rapid alternating movements of the distal lower extremity present (Neuro) and other (Leg circles) SPEECH: speech normal MOTOR EXAM: 5/5 motor strength present throughout and no tremor noted C OORDINATION: does not sway with eyes open, rapid alternating movement UE normal, rapid alternating movement LE normal and other (Leg circles) Psych: COMMON NORMALS: mental status grossly normal, Normal thought process present, cooperative, normal affect and speech normal SPEECH: Yes normal speech THOUGHT PROCESS: Normal thought process present Skin: COMMON NORMALS: no rashes or lesions noted, turgor normal and no jaundice GENERAL SKIN EXAM: no rashes or lesions noted and turgor normal Course 2 Vital Signs: Vital signs: Vital Signs Temperature 98 F 07/19/23 21:08 Pulse Rate 95 07/19/23 22:01 Respiratory Rate 18 07/19/23 21:30 Blood Pressure 151/85 07/19/23 22:01 Pulse Oximetry 99 07/19/23 21:30 Oxygen Delivery Me thod Room Air 07/19/23 21:08 MDM - Dizziness Medical Decision Making Differential diagnosis includes central versus peripheral vertigo. This does not sound like lightheadedness or palpitations. It does not sound like infection, glycemic problems, electrolyte problems. The patient is not a tenecteplase or large vessel occlusion thrombectomy candidate as she has presented in a delayed fashion >24 hrs since onset, the diagnosis of central etiology is not confirmed, NIH is zero (only tests for hemianopsia). Patient recently had a CTA of her head and neck that did not show any signs of vascular stenosis or occlusion. Discussed with the patient that this could be a central etiology. MRI is not available right now. I offered to admit the patient for MRI in the morning. I also gave her the option of being discharged as long as she could have an urgent outpatient MRI and follow-up. Patient states she does have help at home and feels like if she took some vertigo medicine she could go home and simply do an MRI as a follow-up. I explained if the MRI was positive for stroke then her doctor would need to consider dual antiplatelet therapy, can consider ambulatory monitor worker. Patient understands. CT scan of the head without contrast did not show any acute findings. I reviewed the CTA of the head and neck from February. EKG with nonspecific ST and T wave changes. Labs unremarkable for any acute pathology. Patient will be discharged with plans to call her PCP in the morning and arrange for MRI. She was given return precautions. Lab Data 07/19/23 22:00 07/19/23 22:[address] 07/19/23 21:24 IMPRESSION: 1. No acute intracranial abnormality. 2. Mild age-related changes. 3. No significant change has occurred from 03/07/2023. ASSESSMENT: ASPECTS (Susan Stroke Program Early CT Score) is 10. Laboratory Results WBC 8.74 10^3/uL (3.29-11.43) 07/19/23 22:00 RBC 3.87 10^6/uL (3.85-5.65) 07/19/23 22:00 Hgb 11.70 g/dL (11.27-16.99) 07/19/23 22:00 Hct 38.6 % (36-47) 07/19/23 22:00 MCV 99.7 fl (85-98) H 07/19/23 22:00 MCH 30.2 pg (27-33) 07/19/23 22:00 MCHC 30.3 g/dL (30-55) 07/19/23 22:00 RDW 13.1 % (12.1-15.1) 07/19/23 22:00 Plt Count 197 10^3/cmm (157-399) 07/19/23 22:00 MPV 9.2 fL (7.4-10.4) 07/19/23 22:00 Neut % (Auto) 70.0 % 07/19/23 22:00 Lymph % (Auto) 19.3 % 07/19/23 22:00 Barnes % (Auto) 7.8 % 07/19/23 22:00 Eos % (Auto) 2.1 % 07/19/23 22:00 Baso % (Auto) 0.3 % 07/19/23 22:00 Neut # (Auto) 6.12 10^3/uL (1.8-7.7) 07/19/23 22:00 Lymph # (Auto) 1.7 10^3/uL (0.8-4.8) 07/19/23 22:00 Barnes # (Auto) 0.7 10^3/uL (0.2-0.9) 07/19/23 22:00 Eos # (Auto) 0.2 10^3/uL (0.0-0.8) 07/19/23 22:00 Baso # (Auto) 0.0 10^3/uL (0.0-0.1) 07/19/23 22:00 Nucleated RBC % (auto) 0 % 07/19/23 22:00 Nucleated RBCs # 0.0 /100WBC 07/19/23 22:00 PT 12.90 SECONDS (12.1-14.9) 07/19/23 22:00 INR 0.94 (0.8-1.2) 07/19/23 22:00 APTT 25.4 SECONDS (23.9-36.7) 07/19/23 22:00 Sodium 140 mmol/L (136-145) 07/19/23 22:00 Potassium 3.9 mmol/L (3.5-5.1) 07/19/23 22:00 Chloride 105 mmol/L (98-107) 07/19/23 22:00 Carbon Dioxide 23 mmol/L (22-29) 07/19/23 22:00 Anion Gap 15.9 (5-19) 07/19/23 22:00 BUN 15 mg/dL (8-23) 07/19/23 22:00 Creatinine 1.1 mg/dL (0.5-0.9) H 07/19/23 22:00 GFR Calculation 49.5 mL/min (90-130) L 07/19/23 22:00 Glucose 115 mg/dL (65-115) 07/19/23 22:00 Calculated Osmolality 292 mOsm/kg (285-295) 07/19/23 22:00 Calcium 8.9 mg/dL (8.5-10.5) 07/19/23 22:00 Total Bilirubin 0.2 mg/dL (0.15-1.2) 07/19/23 22:00 AST 12 U/L (0-32) 07/19/23 22:00 ALT 6 U/L (0-33) 07/19/23 22:00 Alkaline Phosphatase 108 U/L (35-105) H 07/19/23 22:00 Total Protein 7.4 g/dL (6.6-8.7) 07/19/23 22:00 Albumin 3.8 g/dL (3.5-5.2) 07/19/23 22:00 Globulin 3.6 g/dL (1.3-4.6) 07/19/23 22:00 All radiology interpretation(s) finalized by discharge EKG Data EKG 1: Interpretation: Sinus rhythm, rate 90, nonspecific ST-T wave changes noted, no ST segment elevations, no hyperacute T waves, no ectopy, QTc borderline prolonged, QRS interval 85 ms Discharge Plan Discharge Patient Disposition: Home Clinical Impression: Vertigo, Rotary nystagmus Condition: Stable Prescriptions: New Antivert 25 mg tablet,chewable 25 mg PO TID PRN (Reason: dizziness) Qty: 14 0RF scopolamine base 1 mg over 3 days patch 3 day 1 patch transdermal Q3D PRN (Reason: dizziness or vertigo) Qty: 4 0RF No Action amlodipine 5 mg tablet 5 mg PO DAILY aspirin [Adult Aspirin Regimen] 81 mg tablet,delayed release (DR/EC) 81 mg PO DAILY escitalopram oxalate 10 mg tablet 10 mg PO DAILY rosuvastatin [Crestor] 40 mg tablet 40 mg PO DAILY bupropion HCl 150 mg tablet extended release 24 hr 150 mg PO DAILY calcium citrate-vitamin D3 1 tab PO DAILY ropinirole 0.5 mg tablet 1 mg PO BID (DME) Diabetic Shoes See Rx Instructions .ROUTE .MEDSUPPLY Qty: 1 0RF Rx Instructions: As directed by [facility] with 3 pairs of inserts Januvia 50 mg tablet 50 mg PO QPM (DME) ASO to the right See Rx Instructions .Route .MEDSUPPLY Qty: 1 0RF Rx Instructions: As directed potassium chloride 20 mEq tablet extended release 20 meq PO DAILY Rx Instructions: When I take them Trulicity 0.75 mg/0.5 mL pen injector 0.75 mg SUBCUT .Weekly ezetimibe [Zetia] 10 mg tablet 10 mg PO DAILY Qty: 90 3RF furosemide 40 mg tablet 60 mg PO DAILY Qty: 180 3RF Rx Instructions: Take 1 & 1/2 tabs (60mg) daily Takes when she is home glipizide 10 mg tablet extended release 24hr 40 mg PO QPM [place] 3 Fish Oil Concentrate 1,250 mg PO DAILY hydrocodone-acetaminophen 5-325 mg Tablet 1 tab PO TID PRN (Reason: Pain) methocarbamol 750 mg tablet 750 mg PO Q8H PRN (Reason: Muscle spasms and pain) Qty: 30 0RF meclizine 25 mg tablet,chewable 25 mg PO TID PRN (Reason: dizziness) Qty: 30 0RF Discharge Orders: Discharge ED (Routine); Ordered 07/19/23 Ordered By: Edilson Etienne Referrals: Dena Mueller MD [Primary Care Provider] - 1-3 days (Patient presented more than 24 hours after onset of vertigo. I recommended she have MRI of head to rule out central causes of vertigo. She has a mild case of rotary nystagmus at the endpoints of her gaze. CTA of the head and neck was recently performed in February and was negative for any critical stenosis or obstruction. Patient was put on meclizine and scopolamine. She was asked to do Shola maneuvers. Can you please do a follow-up with her and consider doing MRI brain; MRI was not available in ED and patient would prefer to get it as an outpatient rather than be admitted.) Discharge Diet: Usual diet Discharge Activity: Increase activity as tolerated Patient Instructions: Vertigo (ED), Benign Paroxysmal Positional Vertigo (ED) Activity Restrictions/Additional Instructions: 1. Call your doctor i the morning and arrange for follow up and MRI of the brain. 2. Do the Shola maneuver at least 5 times per day * Start by sitting on a bed. * Turn your head 45 degrees to the right. Lay like this for 2 minutes. * Quickly lie back, keeping your head turned. ...Hold for 2 minutes. * Turn your head 90 degrees to the left, without raising it. ...Hold for 2 minutes. * Turn your head and body another 90 degrees to the left, into the bed. ...Hold for 2 minutes. * Sit up on the left side. * Repeat process but start with head 45 degrees to the left. 3. Take antivert as needed, as prescribed. 4. Keep track of your heart rate and blood pressure. Go to ER if you have new or worsening symptoms. Coding Level of Care Code ED Vertical Contour Band Saw Operator for Ainsley Daigle
[2023-07-19 22:04] LABS: Basophils % 0.3 %; Eosinophils # 0.2 10^3/uL (0.0-0.8); Eosinophils % 2.1 %; Hematocrit 38.6 % (36-47); Lymphocytes # 1.7 10^3/uL (0.8-4.8); Lymphocytes % 19.3 %; Mean Corpuscular HGB Conc 30.3 g/dL (30-55); Mean Corpuscular Hemoglobin 30.2 pg (27-33); Mean Corpuscular Volume 99.7 fl (85-98); Mean Platelet Volume 9.2 fL (7.4-10.4); Monocytes # 0.7 10^3/uL (0.2-0.9); Monocytes % 7.8 %; Neutrophils # 6.12 10^3/uL (1.8-7.7); Nucleated Red Blood Cells % 0 %; Platelet Count 197 10^3/cmm (157-399); Red Blood Count 3.87 10^6/uL (3.85-5.65); Red Cell Distribution Width 13.1 % (12.1-15.1); White Blood Count 8.74 10^3/uL (3.29-11.43)
[2023-07-19 22:22] LABS: INR 0.94 (0.8-1.2); Partial Thromboplastin Time 25.4 SECONDS (23.9-36.7)
[2023-07-19 22:26] LABS: Alanine Aminotransferase 6 U/L (0-33); Albumin Level 3.8 g/dL (3.5-5.2); Alkaline Phosphatase 108 U/L (35-105); Anion Gap 15.9 (5-19); Aspartate Amino Transferase 12 U/L (0-32); Blood Urea Nitrogen 15 mg/dL (8-23); Calcium 8.9 mg/dL (8.5-10.5); Carbon Dioxide 23 mmol/L (22-29); Chloride 105 mmol/L (98-107); Globulin 3.6 g/dL (1.3-4.6); Glomerular Filtration Rate 49.5 mL/min (90-130); Glucose 115 mg/dL (65-115); Osmolality Calculated 292 mOsm/kg (285-295); Potassium 3.9 mmol/L (3.5-5.1); Sodium 140 mmol/L (136-145); Total Bilirubin 0.2 mg/dL (0.15-1.2); Total Protein 7.4 g/dL (6.6-8.7)
[2023-07-19 22:41] VITALS: BP 108/63; PULSE 65; RESP 16; O2SAT 96
== END 2023-07-19 22:47 | disposition home or self-care (01) ==
PROVIDERS: Emergency Provider Emergency Medicine; PCP Family Medicine
DX: R42 Dizziness and giddiness (principal); H55.09 Other forms of nystagmus; Z79.84 Long term (current) use of oral hypoglycemic drugs; Z79.82 Long term (current) use of aspirin; Z79.85 Long-term (current) use of injectable non-insulin antidiabetic drugs; Z87.891 Personal history of nicotine dependence; E11.22 Type 2 diabetes mellitus with diabetic chronic kidney disease; I12.9 Hypertensive chronic kidney disease with stage 1 through stage 4 chronic kidney disease, or unspecified chronic kidney disease; N18.9 Chronic kidney disease, unspecified; E78.5 Hyperlipidemia, unspecified; E11.40 Type 2 diabetes mellitus with diabetic neuropathy, unspecified
CPT/HCPCS: 36415; 70450; 80053; 85025; 85610; 85730; 93005; 99285; J8597

== ENCOUNTER → 2023-07-27 07:06 | Outpatient (BNVA) | payer MEDICARE, MEDICAID, SELFPAY | PROVIDERS: PCP Family Medicine; Visit Provider Podiatrist Foot & Ankle Surgery | DX: Q78.0 Osteogenesis imperfecta (principal); M20.41 Other hammer toe(s) (acquired), right foot; M20.42 Other hammer toe(s) (acquired), left foot; E11.21 Type 2 diabetes mellitus with diabetic nephropathy; M21.41 Flat foot [pes planus] (acquired), right foot; M21.42 Flat foot [pes planus] (acquired), left foot | CPT/HCPCS: 99213 ==

== ENCOUNTER 2023-08-27 09:10 | Outpatient (RCR) | payer MEDICARE, MEDICAID, SELFPAY | END 2023-09-16 23:59 | disposition home or self-care (01) | LOC: SPT 09:10 | PROVIDERS: PCP Family Medicine; Visit Provider Family Medicine | DX: R42 Dizziness and giddiness (principal) | CPT/HCPCS: 95992; 97161 ==

== ENCOUNTER 2023-09-02 13:18 | Outpatient (CLI) | payer MEDICARE, MEDICAID, SELFPAY ==
--- NOTE | 2023-09-02 13:29 | MR_ITS ---
WS: [id number] MRI HEAD WITH CONTRAST TECHNIQUE: Sagittal T1, T2 axial, T2 axial FLAIR, axial susceptibility weighted imaging, axial diffus ion weighted images, and coronal T2 images were obtained. Pre and post-T1 axial and post T1 coronal i mages. ADC and FSPGR images. CLINICAL INFORMATION: DIZZINESS GIDDINESS COMPARISON: CT head 07/19/2023 FINDINGS: No evidence of restricted diffusion to suggest acute ischemia. Ventricular system and basilar cistern s are patent. Mild small vessel changes. Moderate parenchymal volume loss. Normal vascular flow voids at the skull base. No extra-axial fluid collections. No evidence of mass or mass effect. Paranasal s inuses are well aerated. Mastoid air cells are well aerated. Normal posterior nasopharynx and parapharyngeal fat. No hemosiderin on the susceptibility weighted images. Normal optic chiasm and pituitary infundibulum. Mild to moderate symmetric atrophy temporal lobes and hippocampal formations. No abnormal gadolinium enhancement. Normal dural venous sinuses. IMPRESSION: 1. No evidence of restricted diffusion to suggest acute ischemia. 2. Mild small vessel changes with moderate parenchymal volume loss. 3. No hemosiderin on the susceptibly weighted images. 4. Mild to moderate symmetric atrophy temporal lobes and hippocampal formations. 5. No abnormal gadolinium enhancement. 6. No other suspicious findings.
[2023-09-02] MEDS: gadobenate dimeglumine 20 mL vial IV (14:07)
== END 2023-09-02 13:19 | disposition home or self-care (01) ==
LOC: RAD 13:20
PROVIDERS: PCP Family Medicine; Visit Provider Family Medicine
DX: R42 Dizziness and giddiness (principal)
CPT/HCPCS: 70553; A9577

== ENCOUNTER 2023-09-17 06:00 | Outpatient (RCR) | payer MEDICARE, MEDICAID, SELFPAY | END 2023-10-17 23:59 | disposition home or self-care (01) | LOC: SPT 06:00 | PROVIDERS: PCP Family Medicine; Visit Provider Family Medicine | DX: R42 Dizziness and giddiness (principal) | CPT/HCPCS: 95992 ==

== ENCOUNTER 2023-09-21 07:23 | Outpatient (CLI) | payer MEDICARE, MEDICAID, SELFPAY ==
--- NOTE | 2023-09-21 07:29 | MR_ITS ---
WS: [id number] MRI LUMBAR SPINE NONCONTRAST HISTORY: Wedge compresion fracture COMPARISON: 07/31/2014 TECHNIQUE: Sagittal and axial multisequence imaging is submitted. Increase in the lumbar lordosis. Increase in kyphosis near the thoracolumbar junction. Disc spaces ar e all narrowed and desiccated. Most significant obliteration of the disc is at L4-5. No acute fractur e or marrow edema. 2 mm retrolisthesis of L1, L2 and L3. Chronic H-type fractures at L1, L2, L3 and L4. Fractures are ve ry similar to the prior examination from 2014. Conus terminates normally at L1-2 disc level. L1-L2: Diffuse osteophytic ridging and annular disc bulging. Disc osteophyte contacts the ventral the nicki sac and the nerve roots just below the conus. Larger disc osteophyte just to the RIGHT of midline does contact of the nerve roots. Marked bilateral facet arthritis. Disc osteophyte with significant contact on the RIGHT traversing L2 nerve roots. Lesser contact on th e LEFT L2 nerve root and moderate bilateral foraminal stenosis. Mild progression of stenosis. L2-L3: Diffuse annular disc bulging with severe bilateral facet joint arthritis and osteophytic ridgi ng. Mild central, bilateral subarticular recess and foraminal stenosis. L3-L4: Marked osteophytic ridging, annular disc bulging with a large central to LEFT paracentral disc osteophyte. Ligamentum flavum and facet arthritis. Moderate central stenosis with significant contac t on the traversing LEFT L4 nerve root with deformity. Moderate to severe bilateral foraminal stenosi s. L4-L5: Facet joint arthritis. Mild bilateral foraminal stenosis. No central stenosis. L5-S1: Osteophytic ridging and annular disc bulging with facet arthritis. Mild to moderate bilateral foraminal stenosis. Paravertebral soft tissues are normal. RIGHT renal cysts. Psoas muscle atrophy. IMPRESSION: 1. Mild progression of degenerative disc disease and stenoses since 2014. Multilevel advanced facet joint arthritis at all levels. 2. No new acute compression fracture. 3. Remote H-type compression fractures from L1-L4. 4. Large disc osteophyte on the RIGHT at L1-2 with significant compression upon the thecal sac and c ontacting the nerve roots. Progression of this disc osteophyte since 2014. Moderate bilateral foramin al stenosis at L1-2. 5. Mild bilateral central, subarticular recess and foraminal stenosis due to disc and osteophyte and facet disease. 6. Moderate central stenosis with significant contact on the traversing L4 nerve root. Moderate to s evere foraminal stenosis. 7. L4-5: Mild foraminal stenosis. 8. L5-S1: Mild to moderate bilateral foraminal stenosis.
--- NOTE | 2023-09-21 07:30 | MR_ITS ---
WS: [id number] MRI THORACIC SPINE noncontrast HISTORY: Other intervertebral disc degeneration COMPARISON: 08/12/2016 TECHNIQUE: Multiplanar sequences are performed in sagittal and axial planes. Severe increase in thoracic kyphosis. Multiple osteoporotic compression fractures are reidentified. Prior osteoporotic compression fractures with methylmethacrylate at T3, T7 and T8. Methylmethacrylate at T3 extends posterior to the vertebral body and contacts and slightly displaces the thoracic cord. Similar to 08/12/2016. No marrow edema or acute fracture. Chronic mild anterior wedging of T4, T5, T6, T9, T10 and to a lesser extent T11 and T12. Compression fracture at T10 has progressed since 2017 but no retropulsion. Not an acute progression. Diffuse osteopenia. Marked facet joint arthritis with ankylosis across the facet joints as previously described. Disc and osteophyte encroaching upon the ventral thecal sac at multiple levels. The large st central disc protrusion at T5-6. Signal within the cord is normal. Remote fractures in the posteri or RIGHT eighth and ninth ribs. IMPRESSION: 1. No acute thoracic fracture identified. 2. Stable methylmethacrylate at T3, T7 and T8. No progression of fractures. 3. Numerous osteoporotic compression fractures as described above are mild to severe. These are very similar to the prior study from 08/12/2016. Mild progression of the T10 fracture. 4. Advanced facet joint arthritis.
== END 2023-09-21 07:24 | disposition home or self-care (01) ==
LOC: RAD 07:25
PROVIDERS: PCP Family Medicine; Visit Provider Nurse Practitioner Family
DX: M80.08XA Age-related osteoporosis with current pathological fracture, vertebra(e), initial encounter for fracture (principal); M47.814 Spondylosis without myelopathy or radiculopathy, thoracic region; M51.36 Other intervertebral disc degeneration, lumbar region; Q78.0 Osteogenesis imperfecta
CPT/HCPCS: 72146; 72148

== ENCOUNTER → 2023-10-26 07:11 | Outpatient (BNVA) | payer MEDICARE, MEDICAID, SELFPAY | PROVIDERS: PCP Family Medicine; Visit Provider Podiatrist Foot & Ankle Surgery | DX: Q78.0 Osteogenesis imperfecta (principal); E11.21 Type 2 diabetes mellitus with diabetic nephropathy; I73.9 Peripheral vascular disease, unspecified; L60.3 Nail dystrophy; L84 Corns and callosities | CPT/HCPCS: 11056; 11721 ==

== ENCOUNTER 2023-11-25 09:56 | Outpatient (CLI) | payer MEDICARE, MEDICAID, SELFPAY | END 2023-11-25 09:57 | disposition home or self-care (01) | LOC: SPT 09:57 | PROVIDERS: PCP Family Medicine; Visit Provider Podiatrist Foot & Ankle Surgery | DX: Z46.89 Encounter for fitting and adjustment of other specified devices (principal); S82.61XD Displaced fracture of lateral malleolus of right fibula, subsequent encounter for closed fracture with routine healing; X58.XXXD Exposure to other specified factors, subsequent encounter | CPT/HCPCS: 97760; 99213; L1902 ==

== ENCOUNTER → 2023-12-16 08:30 | Outpatient (BNVA) | payer MEDICARE, MEDICAID, SELFPAY | PROVIDERS: PCP Family Medicine; Visit Provider Podiatrist Foot & Ankle Surgery | DX: R06.02 Shortness of breath; S82.61XD Displaced fracture of lateral malleolus of right fibula, subsequent encounter for closed fracture with routine healing; X58.XXXD Exposure to other specified factors, subsequent encounter; I25.10 Atherosclerotic heart disease of native coronary artery without angina pectoris; I11.0 Hypertensive heart disease with heart failure; I50.30 Unspecified diastolic (congestive) heart failure; I73.9 Peripheral vascular disease, unspecified; E78.49 Other hyperlipidemia; Z87.891 Personal history of nicotine dependence | CPT/HCPCS: 73610; 80048; 99213; 99214 ==

== ENCOUNTER → 2024-01-31 12:51 | Outpatient (BNVA) | payer MEDICARE, MEDICAID, SELFPAY | PROVIDERS: PCP Family Medicine; Visit Provider Nurse Practitioner | DX: M25.531 Pain in right wrist; Q78.0 Osteogenesis imperfecta | CPT/HCPCS: 73110; 99204 ==

== ENCOUNTER → 2024-02-04 12:39 | Outpatient (BNVA) | payer MEDICARE, MEDICAID, SELFPAY | PROVIDERS: PCP Family Medicine; Visit Provider Podiatrist Foot & Ankle Surgery | DX: E11.42 Type 2 diabetes mellitus with diabetic polyneuropathy (principal); L60.3 Nail dystrophy; I73.9 Peripheral vascular disease, unspecified | CPT/HCPCS: 11721 ==

== ENCOUNTER → 2024-02-21 13:16 | Outpatient (BNVA) | payer MEDICARE, MEDICAID, SELFPAY | PROVIDERS: PCP Family Medicine; Visit Provider Nurse Practitioner | DX: M17.12 Unilateral primary osteoarthritis, left knee (principal); Q78.0 Osteogenesis imperfecta | CPT/HCPCS: 73560; 73565; 99214 ==

== ENCOUNTER 2024-04-03 07:28 | Outpatient (CLI) | payer MEDICARE, MEDICAID, SELFPAY ==
--- NOTE | 2024-04-03 08:00 | NM_ITS ---
WS: [id number] THREE-PHASE BONE SCAN HISTORY: previous LEFT Femur fx with ORIF. COMPARISON: Knee radiograph 02/21/2024 Patient is is injected with 26.9 mCi Tc99m HDP intravenously. Immediate angiographic phase imaging is performed over the area of concern. Static blood pool imaging also performed. Two-hour whole-body sc intigrams performed in anterior and posterior projections. Additional large field of view imaging sub mitted as necessary. Normal angiographic phase imaging of each knee. Photopenic defect RIGHT knee during blood pool imagin g. This corresponds to the knee arthroplasty. Normal blood pool LEFT knee. Intense uptake involving the LEFT distal knee through the femoral condyles. Greater involvement of th e medial femoral condyle. There is very slight intermediate uptake involving the enchondroma in the p roximal tibia. Long-term stability of the enchondroma. There is additional very mild increased uptake along the RIGHT tibial plateau. RIGHT AC joint arthropathy. Multilevel facet joint arthropathy in the thoracic and lumbar spines. Adv anced degenerative changes at the ankle joints and extending through the mid feet. Soft tissue uptake is normal. Renal activity is identified. NM/NM bone 3 phase [id number] IMPRESSION: 1. No osteomyelitis or cellulitis. 2. Intense uptake involving the LEFT distal femur with extension greatest into the medial femoral condyle. This is at the site of a prior orthopedic repair w ith multiple orthopedic screws present. With patient's history of osteogenesis imperfecta there may be microfractures present. No radiographic abnormality was identified but the intense uptake is concerning for an acute process. 3. Intermediate uptake involving the RIGHT tibial plateau along the knee prost hesis component. 4. Moderate arthropathy at the ankles and mid feet.
== END 2024-04-03 07:29 | disposition home or self-care (01) ==
PROVIDERS: PCP Family Medicine; Visit Provider Nurse Practitioner
DX: M17.12 Unilateral primary osteoarthritis, left knee (principal); T84.84XA Pain due to internal orthopedic prosthetic devices, implants and grafts, initial encounter; Q78.0 Osteogenesis imperfecta; X58.XXXA Exposure to other specified factors, initial encounter
CPT/HCPCS: 78315; A9561

== ENCOUNTER → 2024-04-17 07:59 | Outpatient (BNVA) | payer MEDICARE, MEDICAID, SELFPAY | PROVIDERS: PCP Family Medicine; Visit Provider Nurse Practitioner | DX: M17.12 Unilateral primary osteoarthritis, left knee (principal); Q78.0 Osteogenesis imperfecta | CPT/HCPCS: 99214 ==

== ENCOUNTER 2024-04-21 20:30 | Emergency (ER) | payer MEDICARE, MEDICAID, SELFPAY ==
[2024-04-21 20:36] VITALS: BP 95/59; PULSE 82; RESP 16; TEMP 36.7; O2SAT 95
--- NOTE | 2024-04-21 20:39 | ECG_ITS ---
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 Measurements Intervals [place] Rate: 77 P: 28 MA: 162 QRS: 3 QRSD: 90 T: 31 QT: 408 QTc: 464 Interpretive Statements SINUS RHYTHM LOW QRS VOLTAGE IN PRECORDIAL LEADS [QRS DEFLECTION < 1.0 mV IN CHEST LEADS] Compared to ECG 07/19/2023 21:11:09 Low QRS voltage now present T-wave abnormality no longer present Electronically Signed On 04-22-2024 21:01:09 CDT by Hitesh Hooker M.D. [id number]
[2024-04-21 21:57] LABS: Basophils % 0.4 %; Eosinophils # 0.1 10^3/uL (0.0-0.8); Eosinophils % 1.5 %; Hematocrit 38.2 % (36-47); Lymphocytes # 2.1 10^3/uL (0.8-4.8); Lymphocytes % 27.5 %; Mean Corpuscular HGB Conc 29.6 g/dL (30-55); Mean Corpuscular Hemoglobin 29.5 pg (27-33); Mean Corpuscular Volume 99.7 fl (85-98); Mean Platelet Volume 9.2 fL (7.4-10.4); Monocytes # 0.6 10^3/uL (0.2-0.9); Monocytes % 8.1 %; Neutrophils # 4.82 10^3/uL (1.8-7.7); Neutrophils % 62.1 %; Nucleated Red Blood Cells % 0 %; Platelet Count 162 10^3/cmm (157-399); Red Blood Count 3.83 10^6/uL (3.85-5.65); Red Cell Distribution Width 13.2 % (12.1-15.1); White Blood Count 7.77 10^3/uL (3.29-11.43)
[2024-04-21 22:11] LABS: Alanine Aminotransferase < 5 U/L (0-33); Albumin Level 3.7 g/dL (3.5-5.2); Alkaline Phosphatase 119 U/L (35-105); Anion Gap 13.3 (5-19); Aspartate Amino Transferase 12 U/L (0-32); Blood Urea Nitrogen 21 mg/dL (8-23); Calcium 8.7 mg/dL (8.5-10.5); Carbon Dioxide 24 mmol/L (22-29); Chloride 105 mmol/L (98-107); Globulin 3.3 g/dL (1.3-4.6); Glomerular Filtration Rate 40.7 mL/min (90-130); Glucose 200 mg/dL (65-115); Osmolality Calculated 295 mOsm/kg (285-295); Potassium 4.3 mmol/L (3.5-5.1); Sodium 138 mmol/L (136-145); Total Bilirubin 0.2 mg/dL (0.15-1.2)
[2024-04-21 22:13] LABS: Creatinine Clr Calc Pharmacy 42.7626
--- NOTE | 2024-04-21 23:23 | CTR_ITS ---
PROCEDURE INFORMATION: Exam: CT Head Without Contrast Exam date and time: 04/21/2024 11:35 PM Age: 69 years old Clinical indication: Patient HX: Dizziness with hypotension TECHNIQUE: Imaging protocol: Computed tomography of the head without contrast. Radiation optimization: All CT scans at this facility use at least one of these dose optimization techniques: automated exposure control; mA and/or kV adjustment per patient size (includes targeted exams where dose is matched to clinical indication); or iterative reconstruction. COMPARISON: MR head wo/w con [id number] 09/02/2023 1:50 PM RADIATION DOSE METRICS: Total DLP (mGy-cm): 1090.44 FINDINGS: Brain: Normal. No hemorrhage. Unremarkable white matter. No mass effect. Cerebral ventricles: No ventriculomegaly. Paranasal sinuses: Visualized sinuses are unremarkable. No fluid levels. Mastoid air cells: Visualized mastoid air cells are well aerated. Bones: Unremarkable. No acute fracture. Soft tissues: Unremarkable. CT/CT head wo con* [id number] IMPRESSION: No acute intracranial abnormality.
[2024-04-21] MEDS: sodium chloride 0.9% 1,000 ML 999 ML IV (23:33)
[2024-04-22 00:49] VITALS: BP 107/55; PULSE 77; O2SAT 91
[2024-04-22 01:25] VITALS: BP 110/53; PULSE 76; O2SAT 91
[2024-04-22 02:08] LABS: Bilirubin Urine Negative (Negative); Blood Urine Negative (Negative); Glucose Urine UA 1+ (Normal); Ketones Urine Trace (Negative); Leukocyte Esterase Urine Negative (Negative); Nitrate Urine Negative (Negative); Protein Urine 1+ (Negative); Urine Appearance Clear (CLEAR); Urine Color Yellow (Yellow); pH Urine 5.5 (5-7)
[2024-04-22 02:13] LABS: Add Urine Microscopic? YES; Bacteria Urine None Seen /hpf; Hyaline Casts Urine 3.71 /lpf; RBC Urine 0-2 /hpf (0-2); Squamous Epithelial Cell Urine 0-5 /hpf (0-5); Universal Test for UA Present (0); WBC Urine 0-5 /hpf (0-5)
[2024-04-22 02:21] LABS: Specific Gravity, Urine 1.032 (1.005-1.030)
[2024-04-22 02:22] LABS: Add Urine Culture? No; Mucus Urine 2+ /hpf
[2024-04-22 02:25] VITALS: BP 113/85; PULSE 80; O2SAT 94
[2024-04-22 02:48] VITALS: BP 128/49; PULSE 79; O2SAT 92
--- NOTE | 2024-04-22 05:50 | W.ED.DIZZY ---
HPI - Dizziness General: Chief Complaint: Dizziness Stated Complaint: Low BP Time Seen by Provider: 04/21/24 23:23 History of Present Illness: HPI Narrative: 69-year-old female with a history of hypertension. She became quite dizzy at home, and lightheaded. She did not syncopized. She thought her blood sugar might be low, so she checked it and it was not. She did check her blood pressure which was low, low 80s systolic. It is improved now she is feeling somewhat improved. No focal neurologic symptoms such as weakness, language problems, vision problems, etc. Related Data Home Medications Medication Instructions Recorded Confirmed amlodipine 5 mg tablet 5 mg PO DAILY 09/06/19 04/17/24 aspirin 81 mg tablet,delayed 81 mg PO DAILY 09/06/19 04/17/24 release (Adult Aspirin Regimen) bupropion HCl 150 mg 24 hr tablet, 150 mg PO DAILY 09/06/19 04/17/24 extended release calcium citrate-vitamin D3 1 tab PO DAILY 09/06/19 04/17/24 [Calcium Citrate + D] escitalopram oxalate 10 mg tablet 10 mg PO DAILY 09/06/19 04/17/24 rosuvastatin 40 mg tablet (Crestor) 40 mg PO DAILY 09/06/19 04/17/24 [place] 3 Fish Oil Concentrate 1,250 mg PO DAILY 01/21/21 04/17/24 glipizide 10 mg tablet, extended 40 mg PO QPM 01/21/21 04/17/24 release 24 hr ropinirole 0.5 mg tablet 1 mg PO BID 02/10/22 04/17/24 sitagliptin phosphate 50 mg tablet 50 mg PO QPM 02/10/22 04/17/24 (Januvia) hydrocodone 5 mg-acetaminophen 325 1 tab PO TID PRN Pain 03/05/22 04/17/24 mg tablet dulaglutide 0.75 mg/0.5 mL 0.75 mg SUBCUT .Weekly 08/10/22 04/17/24 subcutaneous pen injector (Rocky) potassium chloride 20 mEq 20 meq PO DAILY 08/10/22 04/17/24 tablet,extended release Previous Rx's Medication Instructions Recorded Diabetic Shoes #1 ea 01/22/21 ASO to the right #1 ea 06/02/22 methocarbamol 750 mg tablet 750 mg PO Q8H PRN Muscle spasms 11/03/22 and pain #30 tabs meclizine 25 mg chewable tablet 25 mg PO TID PRN dizziness #14 tabs 07/19/23 (Antivert) scopolamine base 1 mg over 3 days 1 patch transdermal Q3D PRN 07/19/23 transdermal patch dizziness or vertigo #4 ea Diabetic shoes #1 ea 07/27/23 ezetimibe 10 mg tablet See Rx Instructions .Route 09/03/23 .COMPLEX #90 tabs ASO #1 ea 11/25/23 furosemide 40 mg tablet 60 mg (1.5 x 40 mg) PO DAILY #180 01/05/24 tabs meloxicam 7.5 mg tablet 7.5 mg PO DAILY #90 tabs 01/31/24 Allergies Allergy/AdvReac Type Severity Reaction Status Date / Time alendronate sodium Allergy Unknown Verified 04/21/24 20:41 [From Fosamax] atorvastatin [From Lipitor] Allergy Unknown Verified 04/21/24 20:41 codeine Allergy Unknown Verified 04/21/24 20:41 duloxetine [From Cymbalta] Allergy Unknown Verified 04/21/24 20:41 methylprednisolone Allergy Unknown Verified 04/21/24 20:41 Sulfa (Sulfonamide Allergy Unknown Verified 04/21/24 20:41 Antibiotics) PFSH ED PFSH: Medical History Primary osteoarthritis of left knee Opioid contract exists Chronic low back pain Controlled diabetes mellitus Age related osteoporosis Diabetes ASHD (arteriosclerotic heart disease) Hypertension Hyperlipidemia MOLLY (obstructive sleep apnea) CKD (chronic kidney disease) Osteoarthritis Generalized neuropathy Chronic midline thoracic back pain Encounter for long-term (current) use of NSAIDs Encounter for long-term opiate analgesic use Spinal stenosis, thoracic region Surgical History Hx of carpal tunnel repair Hx of cholecystectomy Hx of knee surgery Hx of kyphoplasty Family History Father Cancer Mother Cancer Family/Other Dementia Diabetes Other Hypertension Denies family history of CAD (coronary artery disease) Clotting disorder Chronic kidney disease (CKD) Suicide Anesthesia complication Bleeding disorder Lung disease Stroke Social History Smoking and tobacco/nicotine status: former use of tobacco/nicotine Second hand smoke exposure: Yes Alcohol intake: never Substance/Drug Use: never Physical Exam Const: COMMON NORMALS: no acute distress GENERAL APPEARANCE: cooperative; not ill appearing and not frail appearing HENMT: COMMON NORMALS: normocephalic, atraumatic and Normal external nose present HEAD & SCALP: normocephalic and atraumatic FACE & SINUS: normal facial exam and face symmetric NOSE: Normal external nose present Eye: COMMON NORMALS: Equal, round and reactive pupils present and EOMs intact bilaterally PUPIL: Yes Equal, round and reactive pupils present Neck/C-Spine: GENERAL: Yes trachea midline Chest: CHEST: Yes Symmetrical chest wall rise Resp: COMMON NORMALS: normal respiratory effort, No retractions, No use of accessory muscles and clear to auscultation bilaterally AUSCULTATION: clear to auscultation bilaterally Cardio: COMMON NORMALS: regular rate and regular rhythm RATE: regular rate RHYTHM: regular rhythm GI: COMMON NORMALS: Normal to inspection, nondistended, normoactive bowel sounds present Extremity: COMMON NORMALS: no pedal edema Neuro: KARLENE COMA SCALE: document GCS findings Karlene coma scale eye opening: Spontaneous Karlene coma scale verbal response: Orientated [place] coma scale motor response: Obey commands [place] coma scale total score: 15 SENSORY EXAM: Yes extremities (intact) Psych: COMMON NORMALS: speech normal SPEECH: Yes normal speech Skin: COMMON NORMALS: no rashes or lesions noted GENERAL SKIN EXAM: no rashes or lesions noted Course Vital Signs: Vital signs: Vital Signs Temperature 98.0 F 04/21/24 20:36 Pulse Rate 79 04/22/24 02:48 Respiratory Rate 16 04/21/24 20:36 Blood Pressure 128/49 04/22/24 02:48 Pulse Oximetry 92 04/22/24 02:48 Oxygen Delivery Me thod Room Air 04/22/24 01:25 [facility] - Dizziness Medical Decision Making On exam, the patient's dizziness has improved. She walked using a walker in the hallway without assistance. Her blood pressure is 128/49, up from 95 systolic on arrival. Other vitals are stable. Her creatinine is 1.3. BMP and other laboratory is not remarkable. Head CT is negative. She does not have a urinary tract infection. With improvement in her symptoms, she will be allowed discharge. She will check her blood pressure at least 3 times a day for the next 48 hours, and as needed following that. She will push oral hydration for now. She will follow-up with her doctor. Return for any new or worsening symptoms. Lab Data 04/21/24 21:48 04/21/24 21:[address] 04/21/24 23:23 IMPRESSION: No acute intracranial abnormality. Laboratory Results WBC 7.77 10^3/uL (3.29-11.43) 04/21/24 21:48 RBC 3.83 10^6/uL (3.85-5.65) L 04/21/24 21:48 Hgb 11.30 g/dL (11.27-16.99) 04/21/24 21:48 Hct 38.2 % (36-47) 04/21/24 21:48 MCV 99.7 fl (85-98) H 04/21/24 21:48 MCH 29.5 pg (27-33) 04/21/24 21:48 MCHC 29.6 g/dL (30-55) L 04/21/24 21:48 RDW 13.2 % (12.1-15.1) 04/21/24 21:48 Plt Count 162 10^3/cmm (157-399) 04/21/24 21:48 MPV 9.2 fL (7.4-10.4) 04/21/24 21:48 Neut % (Auto) 62.1 % 04/21/24 21:48 Lymph % (Auto) 27.5 % 04/21/24 21:48 [facility] % (Auto) 8.1 % 04/21/24 21:48 Eos % (Auto) 1.5 % 04/21/24 21:48 Baso % (Auto) 0.4 % 04/21/24 21:48 Neut # (Auto) 4.82 10^3/uL (1.8-7.7) 04/21/24 21:48 Lymph # (Auto) 2.1 10^3/uL (0.8-4.8) 04/21/24 21:48 [facility] # (Auto) 0.6 10^3/uL (0.2-0.9) 04/21/24 21:48 Eos # (Auto) 0.1 10^3/uL (0.0-0.8) 04/21/24 21:48 Baso # (Auto) 0.0 10^3/uL (0.0-0.1) 04/21/24 21:48 Nucleated RBC % (auto) 0 % 04/21/24 21:48 Nucleated RBCs # 0.0 /100WBC 04/21/24 21:48 Sodium 138 mmol/L (136-145) 04/21/24 21:48 Potassium 4.3 mmol/L (3.5-5.1) 04/21/24 21:48 Chloride 105 mmol/L (98-107) 04/21/24 21:48 Carbon Dioxide 24 mmol/L (22-29) 04/21/24 21:48 Anion Gap 13.3 (5-19) 04/21/24 21:48 BUN 21 mg/dL (8-23) 04/21/24 21:48 Creatinine 1.3 mg/dL (0.5-0.9) H 04/21/24 21:48 GFR Calculation 40.7 mL/min (90-130) L 04/21/24 21:48 Glucose 200 mg/dL (65-115) H 04/21/24 21:48 Calculated Osmolality 295 mOsm/kg (285-295) 04/21/24 21:48 Calcium 8.7 mg/dL (8.5-10.5) 04/21/24 21:48 Total Bilirubin 0.2 mg/dL (0.15-1.2) 04/21/24 21:48 AST 12 U/L (0-32) 04/21/24 21:48 ALT < 5 U/L (0-33) 04/21/24 21:48 Alkaline Phosphatase 119 U/L (35-105) H 04/21/24 21:48 Total Protein 7.0 g/dL (6.6-8.7) 04/21/24 21:48 Albumin 3.7 g/dL (3.5-5.2) 04/21/24 21:48 Globulin 3.3 g/dL (1.3-4.6) 04/21/24 21:48 Urine Color Yellow (Yellow) 04/22/24 01:52 Urine Appearance Clear (CLEAR) 04/22/24 01:52 Urine pH 5.5 (5-7) 04/22/24 01:52 Ur Specific [place] 1.032 (1.005-1.030) H 04/22/24 01:52 Urine Protein 1+ (Negative) A 04/22/24 01:52 Urine Glucose (UA) 1+ (Normal) H 04/22/24 01:52 Urine Ketones Trace (Negative) 04/22/24 01:52 Urine Blood Negative (Negative) 04/22/24 01:52 Urine Nitrate Negative (Negative) 04/22/24 01:52 Urine Bilirubin Negative (Negative) 04/22/24 01:52 Urine Urobilinogen 1.0 mg/dL (Negative) 04/22/24 01:52 Ur Leukocyte Esterase Negative (Negative) 04/22/24 01:52 Urine RBC 0-2 /hpf (0-2) 04/22/24 01:52 Urine WBC 0-5 /hpf (0-5) 04/22/24 01:52 Ur Squamous Epith Cells 0-5 /hpf (0-5) 04/22/24 01:52 Amorphous Sediment Not Reportable 04/22/24 01:52 Urine Bacteria None seen /hpf (NONE) 04/22/24 01:52 Hyaline Casts 3.71 /lpf 04/22/24 01:52 Urine Mucus 2+ /hpf 04/22/24 01:52 All radiology interpretation(s) finalized by discharge Discharge Plan Discharge Patient Disposition: Home Clinical Impression: Acute hypotension Condition: Stable Prescriptions: No Action amlodipine 5 mg tablet 5 mg PO DAILY aspirin [Adult Aspirin Regimen] 81 mg tablet,delayed release (DR/EC) 81 mg PO DAILY escitalopram oxalate 10 mg tablet 10 mg PO DAILY rosuvastatin [Crestor] 40 mg tablet 40 mg PO DAILY bupropion HCl 150 mg tablet extended release 24 hr 150 mg PO DAILY calcium citrate-vitamin D3 1 tab PO DAILY ropinirole 0.5 mg tablet 1 mg PO BID (DME) Diabetic Shoes See Rx Instructions .ROUTE .MEDSUPPLY Qty: 1 0RF Rx Instructions: As directed by [facility] with 3 pairs of inserts Januvia 50 mg tablet 50 mg PO QPM (DME) ASO to the right See Rx Instructions .Route .MEDSUPPLY Qty: 1 0RF Rx Instructions: As directed potassium chloride 20 mEq tablet extended release 20 meq PO DAILY Rx Instructions: When I take them Trulicity 0.75 mg/0.5 mL pen injector 0.75 mg SUBCUT .Weekly (DME) Diabetic shoes See Rx Instructions .ROUTE .MEDSUPPLY Qty: 1 0RF Rx Instructions: With 1 pair custom molded accommodative orthotics (DME) ASO See Rx Instructions .Route .MEDSUPPLY Qty: 1 0RF Rx Instructions: As directed meloxicam 7.5 mg tablet 7.5 mg PO DAILY Qty: 90 0RF ezetimibe 10 mg tablet See Rx Instructions .ROUTE .COMPLEX Qty: 90 3RF Dose Instruction: TAKE 1 TABLET BY MOUTH EVERY DAY Rx Instructions: TAKE 1 TABLET BY MOUTH EVERY DAY furosemide 40 mg tablet 60 mg PO DAILY Qty: 180 3RF Rx Instructions: Take 1 & 1/2 tabs (60mg) daily Takes when she is home glipizide 10 mg tablet extended release 24hr 40 mg PO QPM [place] 3 Fish Oil Concentrate 1,250 mg PO DAILY hydrocodone-acetaminophen 5-325 mg Tablet 1 tab PO TID PRN (Reason: Pain) methocarbamol 750 mg tablet 750 mg PO Q8H PRN (Reason: Muscle spasms and pain) Qty: 30 0RF Antivert 25 mg tablet,chewable 25 mg PO TID PRN (Reason: dizziness) Qty: 14 0RF scopolamine base 1 mg over 3 days patch 3 day 1 patch transdermal Q3D PRN (Reason: dizziness or vertigo) Qty: 4 0RF Discharge Orders: Discharge ED (Routine); Ordered 04/22/24 Ordered By: Braxton Dominguez Referrals: Dena Mueller MD [Primary Care Provider] - 1-3 days Patient Instructions: Hypotension (ED), Opioid Safety, Pain Management Activity Restrictions/Additional Instructions: Take your blood pressure 3 times daily for the next 48 hours or so. Hold your blood pressure medicine if your blood pressure is less than 140/90. Call your doctor on Wednesday. They may wish to see you. Return for any problems including dizziness, unsteadiness, trouble with language or speech, weakness, other concerning symptoms. Coding Level of Care Code ED Residential Property Consultant for Ainsley Daigle
== END 2024-04-22 02:38 | disposition home or self-care (01) ==
PROVIDERS: Nurse Practitioner Family; Emergency Provider Emergency Medicine; PCP Family Medicine
DX: I95.9 Hypotension, unspecified (principal); Z79.82 Long term (current) use of aspirin; Z79.85 Long-term (current) use of injectable non-insulin antidiabetic drugs; Z79.84 Long term (current) use of oral hypoglycemic drugs; Z87.891 Personal history of nicotine dependence; E11.22 Type 2 diabetes mellitus with diabetic chronic kidney disease; I12.9 Hypertensive chronic kidney disease with stage 1 through stage 4 chronic kidney disease, or unspecified chronic kidney disease; N18.9 Chronic kidney disease, unspecified; E78.5 Hyperlipidemia, unspecified
CPT/HCPCS: 36415; 70450; 80053; 81001; 85025; 93005; 96360; 96361; 99285; J7030

== ENCOUNTER → 2024-05-02 12:34 | Outpatient (BNVA) | payer MEDICARE, MEDICAID, SELFPAY | PROVIDERS: PCP Family Medicine; Visit Provider Podiatrist Foot & Ankle Surgery | DX: E11.42 Type 2 diabetes mellitus with diabetic polyneuropathy (principal); L60.3 Nail dystrophy; I73.9 Peripheral vascular disease, unspecified | CPT/HCPCS: 11721 ==

== ENCOUNTER → 2024-06-28 10:48 | Outpatient (BNVA) | payer MEDICARE, MEDICAID, SELFPAY | PROVIDERS: PCP Family Medicine; Visit Provider Internal Medicine Cardiovascular Disease | DX: E78.5 Hyperlipidemia, unspecified (principal); I25.10 Atherosclerotic heart disease of native coronary artery without angina pectoris; E78.49 Other hyperlipidemia; I10 Essential (primary) hypertension; I50.30 Unspecified diastolic (congestive) heart failure; E11.9 Type 2 diabetes mellitus without complications; G47.33 Obstructive sleep apnea (adult) (pediatric) | CPT/HCPCS: 36415; 80061; 80076; 99214 ==

== ENCOUNTER → 2024-07-03 08:00 | Outpatient (BNVA) | payer MEDICARE, MEDICAID, SELFPAY | PROVIDERS: PCP Family Medicine; Visit Provider Podiatrist Foot & Ankle Surgery | DX: E11.8 Type 2 diabetes mellitus with unspecified complications (principal); E11.42 Type 2 diabetes mellitus with diabetic polyneuropathy; L60.3 Nail dystrophy; I73.9 Peripheral vascular disease, unspecified | CPT/HCPCS: 11721 ==

== ENCOUNTER → 2024-07-05 08:39 | Outpatient (BNVA) | payer MEDICARE, MEDICAID, SELFPAY | PROVIDERS: PCP Family Medicine; Visit Provider Nurse Practitioner | DX: M17.12 Unilateral primary osteoarthritis, left knee (principal); Q78.0 Osteogenesis imperfecta | CPT/HCPCS: 20610; 99213; J1100; J2795; J3301 ==

== ENCOUNTER 2024-07-17 09:52 | Outpatient (CLI) | payer MEDICARE, MEDICAID, SELFPAY ==
--- NOTE | 2024-07-17 09:57 | MM_ITS ---
WS: [id number] Bilateral screening 3D tomosynthesis digital mammogram, 07/17/2024 10:16 AM Clinical Data: SCREENING Comparison: 07/09/2023, 07/03/2022, 07/03/2021, 05/08/2020, 03/17/2019, 03/01/2018, 02/18/2017, 01/27/2016 , 12/31/2014, 12/13/2013, 07/30/2009. Findings: No spiculated masses or clustered calcifications are seen. There are no secondary signs of carcinoma . There are scattered benign calcifications in both breasts. MM/MM scr BI tomosynthesis [id number] Impression: Negative bilateral mammogram unchanged. Recommend annual screening mammograms. BIRADS: 1 - Negative. FOLLOW UP: 1 Year Follow-up DENSITY: The breasts are almost entirely fatty. The CAD radio program checker was used
== END 2024-07-17 09:53 | disposition home or self-care (01) ==
PROVIDERS: PCP Family Medicine; Visit Provider Family Medicine
DX: Z12.31 Encounter for screening mammogram for malignant neoplasm of breast (principal); R92.1 Mammographic calcification found on diagnostic imaging of breast
CPT/HCPCS: 77063; 77067

== ENCOUNTER → 2024-09-20 08:58 | Outpatient (BNVA) | payer MEDICARE, MEDICAID, SELFPAY | PROVIDERS: PCP Family Medicine; Visit Provider Nurse Practitioner | DX: M17.12 Unilateral primary osteoarthritis, left knee (principal); Z71.89 Other specified counseling; Q78.0 Osteogenesis imperfecta | CPT/HCPCS: 20610; 99213; J1100; J2795; J3301 ==

== ENCOUNTER → 2024-10-09 07:43 | Outpatient (BNVA) | payer MEDICARE, MEDICAID, SELFPAY | PROVIDERS: PCP Family Medicine; Visit Provider Podiatrist Foot & Ankle Surgery | DX: E11.8 Type 2 diabetes mellitus with unspecified complications (principal); L60.3 Nail dystrophy; L84 Corns and callosities; E11.42 Type 2 diabetes mellitus with diabetic polyneuropathy; I73.9 Peripheral vascular disease, unspecified | CPT/HCPCS: 11056; 11721 ==

== ENCOUNTER 2024-10-13 08:34 | Emergency (ER) | payer MEDICARE, MEDICAID, SELFPAY ==
--- NOTE | 2024-10-13 08:45 | CT_ITS ---
WS: [id number] CT ABDOMEN PELVIS TECHNIQUE: Contrast-enhanced CT of the abdomen and pelvis with coronal and sagittal reformatted images. CLINICAL INFORMATION: abd pain COMPARISON: MRI lumbar spine 09/21/2023 DLP: 978.[address] scans at [facility] use at least one of these dose optimization techniques: automated exposure control; mA and/or kV adjustment per patient size (includes targeted exams where dose is matched to clinical indication); or iterative reconstruction. FINDINGS: Numerous chronic lumbar compression fractures appear stable since 09/21/2023. Biconcave compression at T10, T12, L1, L2, L3 appears stable. Osteopenia. Prior vertebroplasty changes in the lower thoracic spine. Advanced degenerative narrowing both hips. Subtle LEFT sacral fracture with cortical step off s uspicious for insufficiency fracture. This is difficult to further assess due to marked osteopenia. This can be followed up with sacral MRI. This has a recent or acute appearance. Tiny RIGHT pleural effusion. Hepatomegaly. Prior cholecystectomy. A few retained calculi in the remnant cystic duct unchanged from multiple prior examinations. Mild intrahepatic biliary ductal dilatation appears unchanged. Pancreas appears normal. Normal GE junction. Splenic artery calcifications. Adrenal glands are normal. No hydronephrosis in either kidney. Bilateral renal cysts. Vascular calcification. Tiny fat-containing umbilical hernia. Normal caliber abdominal aorta. Sigmoid constipation. Normal appendix in the RIGHT lower quadrant. Tiny fat-containing umbilical hernia. CT/CT abdomen pelvis w con* [id number] IMPRESSION: 1. Advanced osteopenia. LEFT sacral insufficiency fracture has an acute appear ance. This can be followed up with sacral MRI if indicated. 2. Chronic lumbar compression fractures appear stable. 3. No acute appearing hip fractures. 4. No hydronephrosis in either kidney. 5. Prior cholecystectomy with a few retained gallstones in the cystic duct wit h correction stability 6. Tiny RIGHT pleural effusion with atelectasis RIGHT lower lobe.
[2024-10-13 09:13] VITALS: BP 121/76; PULSE 74; RESP 16; TEMP 36.6; O2SAT 96; BMI 42.2
[2024-10-13 09:52] LABS: Basophils # 0.1 10^3/uL (0.0-0.1); Basophils % 0.5 %; Eosinophils # 0.1 10^3/uL (0.0-0.8); Eosinophils % 1.1 %; Hematocrit 41.3 % (36-47); Lymphocytes # 1.9 10^3/uL (0.8-4.8); Lymphocytes % 18.1 %; Mean Corpuscular Hemoglobin 29.4 pg (27-33); Mean Corpuscular Volume 97.9 fl (85-98); Mean Platelet Volume 9.1 fL (7.4-10.4); Monocytes # 0.9 10^3/uL (0.2-0.9); Monocytes % 8.5 %; Neutrophils # 7.48 10^3/uL (1.8-7.7); Neutrophils % 71.2 %; Nucleated Red Blood Cells % 0 %; Platelet Count 230 10^3/cmm (157-399); Red Blood Count 4.22 10^6/uL (3.85-5.65); Red Cell Distribution Width 13.8 % (12.1-15.1)
[2024-10-13 10:08] LABS: Alanine Aminotransferase < 5 U/L (0-33); Albumin Level 4.1 g/dL (3.5-5.2); Alkaline Phosphatase 133 U/L (35-105); Anion Gap 16.2 (5-19); Aspartate Amino Transferase 10 U/L (0-32); Blood Urea Nitrogen 23 mg/dL (8-23); Calcium 9.8 mg/dL (8.5-10.5); Carbon Dioxide 26 mmol/L (22-29); Chloride 99 mmol/L (98-107); Globulin 3.9 g/dL (1.3-4.6); Glomerular Filtration Rate 44.7 mL/min (90-130); Glucose 83 mg/dL (65-115); Lipase 19 U/L (13-60); Osmolality Calculated 287 mOsm/kg (285-295); Potassium 4.2 mmol/L (3.5-5.1); Sodium 137 mmol/L (136-145); Total Bilirubin 0.4 mg/dL (0.15-1.2)
[2024-10-13 10:23] LABS: Bacteria Urine None Seen /hpf; Hyaline Casts Urine 0-4 /lpf; Squamous Epithelial Cell Urine 0-5 /hpf (0-5)
[2024-10-13 10:28] LABS: Add Urine Microscopic? YES; Bilirubin Urine Neg (Negative); Blood Urine Neg (Negative); Glucose Urine UA Norm (Normal); Ketones Urine Negative (Negative); Leukocyte Esterase Urine 1+ (Negative); Nitrate Urine Negative (Negative); Protein Urine Neg (Negative); Urine Appearance Clear (CLEAR); Urine Color Yellow (Yellow); Urobilinogen Urine Neg (Negative); pH Urine 6 (5-7)
[2024-10-13] MEDS: iohexol 350 mg/mL 500 mL Btl (per mL) IV (10:42)
[2024-10-13 10:43] LABS: Add Urine Culture? Yes; Calcium Oxalate Crystals Urine 15-25 /hpf; UA Slide Review UA Slide Review Perf
--- NOTE | 2024-10-13 11:14 | W.ED.BACK ---
HPI - Back Pain/Injury General: Chief Complaint: Back Pain/Injury Stated Complaint: pelvic and low back pain Time Seen by Provider: 10/13/24 08:45 History of Present Illness: 61-year-old female presents emergency room complaining of recent bladder infection that has been being treated sphincter seems to gradually worsening and now she is also developed pain in her buttock radiating down her leg also in the pelvic region in the midline. She still having urinary tract symptoms she is still on antibiotic. No trauma recently. She has a low-grade fever at home. Associated symptoms: Reports dysuria and urinary urgency; Deny abdominal pain, chills or fever(s) Related Data Home Medications ?Medication ?Instructions ?Recorded ?Confirmed amlodipine 5 mg tablet 5 mg PO DAILY 09/06/19 10/13/24 aspirin 81 mg tablet,delayed 81 mg PO DAILY 09/06/19 10/13/24 release (Adult Aspirin Regimen) bupropion HCl 150 mg 24 hr tablet, 150 mg PO DAILY 09/06/19 10/13/24 extended release escitalopram oxalate 10 mg tablet 10 mg PO DAILY 09/06/19 10/13/24 rosuvastatin 40 mg tablet (Crestor) 40 mg PO DAILY 09/06/19 10/13/24 glipizide 10 mg tablet, extended 40 mg PO QPM 01/21/21 10/13/24 release 24 hr hydrocodone 5 mg-acetaminophen 325 1 tab PO TID PRN Pain 03/05/22 10/13/24 mg tablet dulaglutide 0.75 mg/0.5 mL 0.75 mg SUBCUT .Weekly 08/10/22 10/13/24 subcutaneous pen injector (Trulicity) potassium chloride 20 mEq 20 meq PO DAILY 08/10/22 10/13/24 tablet,extended release sitagliptin phosphate 100 mg 100 mg PO DAILY 05/02/24 10/13/24 tablet (Januvia) calcium 600 mg (as 1 tab PO DAILY 10/13/24 10/13/24 carbonate)-vitamin D3 10 mcg (400 unit) tablet (Calcium 600 + D(3)) omega-3 fatty acids-fish oil 684 1 cap PO DAILY 10/13/24 10/13/24 mg-1,200 mg capsule,delayed release ropinirole 1 mg tablet See Rx Instructions .Route .COMPLEX 10/13/24 10/13/24 tizanidine 4 mg tablet 4 mg PO QPM 10/13/24 10/13/24 trazodone 50 mg tablet 50 mg PO BEDTIME PRN Insomnia 10/13/24 10/13/24 Previous Rx's ?Medication ?Instructions ?Recorded Diabetic Shoes #1 ea 01/22/21 ASO to the right #1 ea 06/02/22 Diabetic shoes #1 ea 07/27/23 ASO #1 ea 11/25/23 furosemide 40 mg tablet 60 mg (1.5 x 40 mg) PO DAILY #180 01/05/24 tabs ezetimibe 10 mg tablet See Rx Instructions .Route 09/27/24 .COMPLEX #90 tabs Allergies Allergy/AdvReac Type Severity Reaction Status Date / Time alendronate sodium (From Allergy Unknown Verified 10/13/24 09:23 Fosamax) atorvastatin (From Lipitor) Allergy Unknown Verified 10/13/24 09:23 codeine Allergy Unknown Verified 10/13/24 09:23 duloxetine (From Cymbalta) Allergy Unknown Verified 10/13/24 09:23 methylprednisolone Allergy Unknown Verified 10/13/24 09:23 Sulfa (Sulfonamide Allergy Unknown Verified 10/13/24 09:23 Antibiotics) Review of Systems Const: Denies: fever(s) or chills Card: Denies: chest pain Resp: Denies: dyspnea GI: Denies: abdominal pain : Reports: dysuria, urinary frequency and urinary urgency Musc: Denies: neck pain or back pain Skin/Breast: Denies: rash PFSH ED PFSH: Medical History Primary osteoarthritis of left knee Opioid contract exists Chronic low back pain Controlled diabetes mellitus Age related osteoporosis Diabetes ASHD (arteriosclerotic heart disease) Hypertension Hyperlipidemia MOLLY (obstructive sleep apnea) CKD (chronic kidney disease) Osteoarthritis Generalized neuropathy Chronic midline thoracic back pain Encounter for long-term (current) use of NSAIDs Encounter for long-term opiate analgesic use Spinal stenosis, thoracic region Surgical History Hx of carpal tunnel repair Hx of cholecystectomy Hx of knee surgery Hx of kyphoplasty Family History Father Cancer Mother Cancer Family/Other Dementia Diabetes Other Hypertension Denies family history of CAD (coronary artery disease) Clotting disorder Chronic kidney disease (CKD) Suicide Anesthesia complication Bleeding disorder Lung disease Stroke Social History Smoking and tobacco/nicotine status: former use of tobacco/nicotine Second hand smoke exposure: Yes Alcohol intake: current Alcohol intake frequency: holidays/special occasions only Substance/Drug Use: never Physical Exam Const: GENERAL APPEARANCE: cooperative ORIENTATION/CONSCIOUSNESS: Yes awake, Yes oriented to person, Yes oriented to place and Yes oriented to time HENMT: COMMON NORMALS: normocephalic, atraumatic and hearing grossly normal bilaterally HEAD & SCALP: normocephalic and atraumatic Resp: COMMON NORMALS: normal respiratory effort, No retractions, No use of accessory muscles and clear to auscultation bilaterally AUSCULTATION: clear to auscultation bilaterally Cardio: COMMON NORMALS: regular rate, regular rhythm and No murmurs present (Cardio) RATE: regular rate RHYTHM: regular rhythm GI: COMMON NORMALS: Soft to palpation and No hepatosplenomegaly present AUSCULTATION: Yes normoactive bowel sounds PALPATION: Yes Soft to palpation, No Tenderness to palpation present (GI), No Guarding due to palpation present (GI) and Yes No hepatosplenomegaly present Extremity: COMMON NORMALS: normal to inspection, capillary refill normal, no clubbing, cyanosis or edema, no calf tenderness and no pedal edema Neuro: SENSORIUM/ORIENTATION: Yes oriented to person, Yes oriented to place and Yes oriented to time OTHER: Neurovascularly intact in the lower extremities dorsum plantarflexion and 5-5. Skin: COMMON NORMALS: no rashes or lesions noted GENERAL SKIN EXAM: no rashes or lesions noted Course Vital Signs: Vital signs: Vital Signs Temperature 97.8 F 10/13/24 09:13 Pulse Rate 79 10/13/24 12:39 Respiratory Rate 17 10/13/24 11:18 Blood Pressure 163/68 10/13/24 12:39 Pulse Oximetry 97 10/13/24 12:39 Oxygen Delivery Me thod Room Air 10/13/24 12:00 MDM - Back Pain/Injury Medical Decision Making Patient has osteoporosis osteogenesis imperfecta has a sacral insufficiency fracture. She does have a mild cystitis there is no sign of any hydronephrosis or any ureteral obstruction. Will discharge the patient home with oral antibiotics she has pain medications at home follow-up with primary care. We discussed how she would manage her ADLs possibly referring to [facility] she declined she would prefer to manage at home. Labs 10/13/24 09:47 10/13/24 09:47 Radiology Impressions Abdomen/Pelvis CT 10/13/24 08:45 IMPRESSION: 1. Advanced osteopenia. LEFT sacral insufficiency fracture has an acute appearance. This can be followed up with sacral MRI if indicated. 2. Chronic lumbar compression fractures appear stable. 3. No acute appearing hip fractures. 4. No hydronephrosis in either kidney. 5. Prior cholecystectomy with a few retained gallstones in the cystic duct with jukebox coin collector stability 6. Tiny RIGHT pleural effusion with atelectasis RIGHT lower lobe. Laboratory Results WBC 10.50 10^3/uL (3.29-11.43) 10/13/24 09:47 RBC 4.22 10^6/uL (3.85-5.65) 10/13/24 09:47 Hgb 12.40 g/dL (11.27-16.99) 10/13/24 09:47 Hct 41.3 % (36-47) 10/13/24 09:47 MCV 97.9 fl (85-98) 10/13/24 09:47 MCH 29.4 pg (27-33) 10/13/24 09:47 MCHC 30.0 g/dL (30-55) 10/13/24 09:47 RDW 13.8 % (12.1-15.1) 10/13/24 09:47 Plt Count 230 10^3/cmm (157-399) 10/13/24 09:47 MPV 9.1 fL (7.4-10.4) 10/13/24 09:47 Neut % (Auto) 71.2 % 10/13/24 09:47 Lymph % (Auto) 18.1 % 10/13/24 09:47 [place] % (Auto) 8.5 % 10/13/24 09:47 Eos % (Auto) 1.1 % 10/13/24 09:47 Baso % (Auto) 0.5 % 10/13/24 09:47 Neut # (Auto) 7.48 10^3/uL (1.8-7.7) 10/13/24 09:47 Lymph # (Auto) 1.9 10^3/uL (0.8-4.8) 10/13/24 09:47 [place] # (Auto) 0.9 10^3/uL (0.2-0.9) 10/13/24 09:47 Eos # (Auto) 0.1 10^3/uL (0.0-0.8) 10/13/24 09:47 Baso # (Auto) 0.1 10^3/uL (0.0-0.1) 10/13/24 09:47 Nucleated RBC % (auto) 0 % 10/13/24 09:47 Nucleated RBCs # 0.0 /100WBC 10/13/24 09:47 Sodium 137 mmol/L (136-145) 10/13/24 09:47 Potassium 4.2 mmol/L (3.5-5.1) 10/13/24 09:47 Chloride 99 mmol/L (98-107) 10/13/24 09:47 Carbon Dioxide 26 mmol/L (22-29) 10/13/24 09:47 Anion Gap 16.2 (5-19) 10/13/24 09:47 BUN 23 mg/dL (8-23) 10/13/24 09:47 Creatinine 1.2 mg/dL (0.5-0.9) H 10/13/24 09:47 GFR Calculation 44.7 mL/min (90-130) L 10/13/24 09:47 Glucose 83 mg/dL (65-115) 10/13/24 09:47 Calculated Osmolality 287 mOsm/kg (285-295) 10/13/24 09:47 Calcium 9.8 mg/dL (8.5-10.5) 10/13/24 09:47 Total Bilirubin 0.4 mg/dL (0.15-1.2) 10/13/24 09:47 AST 10 U/L (0-32) 10/13/24 09:47 ALT < 5 U/L (0-33) 10/13/24 09:47 Alkaline Phosphatase 133 U/L (35-105) H 10/13/24 09:47 Total Protein 8.0 g/dL (6.6-8.7) 10/13/24 09:47 Albumin 4.1 g/dL (3.5-5.2) 10/13/24 09:47 Globulin 3.9 g/dL (1.3-4.6) 10/13/24 09:47 Lipase 19 U/L (13-60) 10/13/24 09:47 Urine Color Yellow (Yellow) 10/13/24 10:10 Urine Appearance Clear (CLEAR) 10/13/24 10:10 Urine pH 6 (5-7) 10/13/24 10:10 Ur Specific [place] 1.020 (1.005-1.030) 10/13/24 10:10 Urine Protein Neg (Negative) 10/13/24 10:10 Urine Glucose (UA) Norm (Normal) 10/13/24 10:10 Urine Ketones Negative (Negative) 10/13/24 10:10 Urine Blood Neg (Negative) 10/13/24 10:10 Urine Nitrate Negative (Negative) 10/13/24 10:10 Urine Bilirubin Neg (Negative) 10/13/24 10:10 Urine Urobilinogen Neg mg/dL (Negative) 10/13/24 10:10 Ur Leukocyte Esterase 1+ (Negative) A 10/13/24 10:10 Urine RBC 3-5 /hpf (0-2) 10/13/24 10:10 Urine WBC 11-20 /hpf (0-5) H 10/13/24 10:10 Ur Squamous Epith Cells 0-5 /hpf (0-5) 10/13/24 10:10 Calcium Oxalate Crystal 15-25 /hpf H 10/13/24 10:10 Amorphous Sediment Not Reportable 10/13/24 10:10 Urine Bacteria None seen /hpf (NONE) 10/13/24 10:10 Hyaline Casts 0-4 /lpf H 10/13/24 10:10 All radiology interpretation(s) finalized by discharge Discharge Plan Discharge Patient Disposition: Home Clinical Impression: Sacral insufficiency fracture, Osteogenesis imperfecta, Osteoporosis Condition: Stable Prescriptions: No Action amlodipine 5 mg tablet 5 mg PO DAILY aspirin [Adult Aspirin Regimen] 81 mg tablet,delayed release (DR/EC) 81 mg PO DAILY escitalopram oxalate 10 mg tablet 10 mg PO DAILY rosuvastatin [Crestor] 40 mg tablet 40 mg PO DAILY bupropion HCl 150 mg tablet extended release 24 hr 150 mg PO DAILY (DME) Diabetic Shoes See Rx Instructions .ROUTE .MEDSUPPLY Qty: 1 0RF Rx Instructions: As directed by Diane Santoro & Suzi with 3 pairs of inserts (DME) ASO to the right See Rx Instructions .Route .MEDSUPPLY Qty: 1 0RF Rx Instructions: As directed potassium chloride 20 mEq tablet extended release 20 meq PO DAILY Rx Instructions: When I take them Trulicity 0.75 mg/0.5 mL pen injector 0.75 mg SUBCUT .Weekly (DME) Diabetic shoes See Rx Instructions .ROUTE .MEDSUPPLY Qty: 1 0RF Rx Instructions: With 1 pair custom molded accommodative orthotics (DME) ASO See Rx Instructions .Route .MEDSUPPLY Qty: 1 0RF Rx Instructions: As directed Januvia 100 mg tablet 100 mg PO DAILY furosemide 40 mg tablet 60 mg PO DAILY Qty: 180 3RF Rx Instructions: Take 1 & 1/2 tabs (60mg) daily Takes when she is home ezetimibe 10 mg tablet See Rx Instructions .ROUTE .COMPLEX Qty: 90 3RF Dose Instruction: TAKE 1 TABLET BY MOUTH EVERY DAY Rx Instructions: TAKE 1 TABLET BY MOUTH EVERY DAY glipizide 10 mg tablet extended release 24hr 40 mg PO QPM hydrocodone-acetaminophen 5-325 mg Tablet 1 tab PO TID PRN (Reason: Pain) calcium carbonate-vitamin D3 [Calcium 600 + D(3)] 600 mg-10 mcg (400 unit) Tablet 1 tab PO DAILY ropinirole 1 mg tablet See Rx Instructions .ROUTE .COMPLEX Rx Instructions: TAKE 1 TABLET BY MOUTH EVERY MORNING and TWO EVERY EVENING [place] 3 Fish Oil 684-1,200 mg Capsule,Delayed Release(Dr/Ec) 1 cap PO DAILY trazodone 50 mg tablet 50 mg PO BEDTIME PRN (Reason: Insomnia) tizanidine 4 mg tablet 4 mg PO QPM Discharge Orders: Discharge ED (Routine); Ordered 10/13/24 Ordered By: Efren Bermudez Referrals: Dena Mueller MD [Primary Care Provider] - Discharge Diet: Usual diet Discharge Activity: Resume usual activity Patient Instructions: Opioid Safety, Pain Management Activity Restrictions/Additional Instructions: Thank you for choosing [facility] for your healthcare needs today. It is very important that you follow up as instructed or that you return to the Emergency Department should you have concerns or if your condition changes or worsens in any way. You were seen in the emergency room with a complaint of pelvic pain you do have a mild cystitis but you also have a sacral insufficiency fracture which is causing the bulk of the discomfort in your low back and radiating into your leg. Use previously prescribed medications for the follow-up with your primary care doctor. You were also given a course of antibiotics for the persistent bladder infection. Print Language: Armenian Coding Level of Care Code ED Circle Edger for Ainsley Daigle
[2024-10-13] MEDS: ketorolac 30 mg/mL INJ 15 MG IVP (11:17)
[2024-10-13 11:18] VITALS: RESP 17
[2024-10-13] MEDS: orphenadrine 30 mg/mL Inj 2 mL 60 MG IVP (11:18)
[2024-10-13] MEDS: morphine 4 mg/mL SDV 1 mL IVP (11:18)
[2024-10-13 12:00] VITALS: BP 155/88; PULSE 78; O2SAT 95
[2024-10-13 12:39] VITALS: BP 163/68; PULSE 79; O2SAT 97
== END 2024-10-13 12:40 | disposition home or self-care (01) ==
PROVIDERS: Emergency Provider Family Medicine; PCP Family Medicine
DX: S32.19XA Other fracture of sacrum, initial encounter for closed fracture (principal); Q78.0 Osteogenesis imperfecta; M81.0 Age-related osteoporosis without current pathological fracture; Z79.82 Long term (current) use of aspirin; Z87.891 Personal history of nicotine dependence; E78.5 Hyperlipidemia, unspecified; E11.22 Type 2 diabetes mellitus with diabetic chronic kidney disease; I12.9 Hypertensive chronic kidney disease with stage 1 through stage 4 chronic kidney disease, or unspecified chronic kidney disease; N18.9 Chronic kidney disease, unspecified; X58.XXXA Exposure to other specified factors, initial encounter
CPT/HCPCS: 36415; 74177; 80053; 81001; 83690; 85025; 87086; 96374; 96375; 99285; J1885; J2270; J2360

== ENCOUNTER 2024-12-17 08:08 | Emergency (ER) | payer MEDICARE, MEDICAID, SELFPAY ==
[2024-12-17 08:12] VITALS: BP 156/84; PULSE 71; RESP 20; TEMP 36.8; O2SAT 99; BMI 40.8
--- NOTE | 2024-12-17 08:17 | XRR_ITS ---
PROCEDURE INFORMATION: Exam: XR Right Hip Exam date and time: 12/17/2024 8:33 AM Age: 69 years old Clinical indication: Hip pain; Right hip; Prior surgery; Surgery date: 6+ months; Surgery type: RT femur TECHNIQUE: Imaging protocol: Radiologic exam of the right hip. Views: 1 view hip with pelvis when performed. COMPARISON: CT abdomen pelvis w con* [id number] 10/13/2024 10:38 AM FINDINGS: Tubes, catheters and devices: Surgical plate and fixation screw is seen in the visualized mid femur. Bones/joints: There is no fracture or joint dislocation involving the right hip joint. There is mild joint space narrowing involving the right hip joint. Soft tissues: Unremarkable. XR/XR hip RT 2-3V wo/w pel* [id number] IMPRESSION: Mild right hip DJD.
[2024-12-17 08:21] VITALS: BP 156/84; PULSE 71; RESP 20; O2SAT 99
--- NOTE | 2024-12-17 08:23 | W.ED.EXTPRO ---
HPI - Extremity Problem General: Chief complaint: Extremity Injury, Lower Stated complaint: pain in right hip Time Seen by Provider: 12/17/24 08:16 History of Present Illness: 61-year-old female presents emergency room complaining of left hip pain. Patient was seen previously in the emergency room in September had a sacral insufficiency fracture noted on CT at that time. She has been taking hydrocodone at home she states has not been helping. She did not do anything different as far as activities in the last 24 hours that seem to exacerbate this. She denies any dysuria urgency or frequency that has any abdominal pain. Associated symptoms: Deny chest pain, fever(s) or rash Related Data Home Medications ?Medication ?Instructions ?Recorded ?Confirmed amlodipine 5 mg tablet 5 mg PO DAILY 09/06/19 10/13/24 aspirin 81 mg tablet,delayed 81 mg PO DAILY 09/06/19 10/13/24 release (Adult Aspirin Regimen) bupropion HCl 150 mg 24 hr tablet, 150 mg PO DAILY 09/06/19 10/13/24 extended release escitalopram oxalate 10 mg tablet 10 mg PO DAILY 09/06/19 10/13/24 rosuvastatin 40 mg tablet (Crestor) 40 mg PO DAILY 09/06/19 10/13/24 glipizide 10 mg tablet, extended 40 mg PO QPM 01/21/21 10/13/24 release 24 hr hydrocodone 5 mg-acetaminophen 325 1 tab PO TID PRN Pain 03/05/22 10/13/24 mg tablet dulaglutide 0.75 mg/0.5 mL 0.75 mg SUBCUT .Weekly 08/10/22 10/13/24 subcutaneous pen injector (Trulicity) potassium chloride 20 mEq 20 meq PO DAILY 08/10/22 10/13/24 tablet,extended release sitagliptin phosphate 100 mg 100 mg PO DAILY 05/02/24 10/13/24 tablet (Januvia) calcium 600 mg (as 1 tab PO DAILY 10/13/24 10/13/24 carbonate)-vitamin D3 10 mcg (400 unit) tablet (Calcium 600 + D(3)) omega-3 fatty acids-fish oil 684 1 cap PO DAILY 10/13/24 10/13/24 mg-1,200 mg capsule,delayed release ropinirole 1 mg tablet See Rx Instructions .Route .COMPLEX 10/13/24 10/13/24 tizanidine 4 mg tablet 4 mg PO QPM 10/13/24 10/13/24 trazodone 50 mg tablet 50 mg PO BEDTIME PRN Insomnia 10/13/24 10/13/24 Previous Rx's ?Medication ?Instructions ?Recorded Diabetic Shoes #1 ea 01/22/21 ASO to the right #1 ea 06/02/22 Diabetic shoes #1 ea 07/27/23 ASO #1 ea 11/25/23 furosemide 40 mg tablet 60 mg (1.5 x 40 mg) PO DAILY #180 01/05/24 tabs ezetimibe 10 mg tablet See Rx Instructions .Route 09/27/24 .COMPLEX #90 tabs pregabalin 75 mg capsule (Lyrica) 75 mg PO BID #60 caps 12/17/24 Allergies Allergy/AdvReac Type Severity Reaction Status Date / Time alendronate sodium (From Allergy Unknown Verified 12/17/24 08:21 Fosamax) atorvastatin (From Lipitor) Allergy Unknown Verified 12/17/24 08:21 codeine Allergy Unknown Verified 12/17/24 08:21 duloxetine (From Cymbalta) Allergy Unknown Verified 12/17/24 08:21 methylprednisolone Allergy Unknown Verified 12/17/24 08:21 Sulfa (Sulfonamide Allergy Unknown Verified 12/17/24 08:21 Antibiotics) Review of Systems Const: Denies: fever(s) or chills Card: Denies: chest pain Resp: Denies: dyspnea GI: Denies: abdominal pain : Denies: dysuria, urinary frequency or urinary urgency Musc: Denies: neck pain or back pain Skin/Breast: Denies: rash PFSH ED PFSH: Medical History Primary osteoarthritis of left knee Opioid contract exists Chronic low back pain Controlled diabetes mellitus Age related osteoporosis Diabetes ASHD (arteriosclerotic heart disease) Hypertension Hyperlipidemia MOLLY (obstructive sleep apnea) CKD (chronic kidney disease) Osteoarthritis Generalized neuropathy Chronic midline thoracic back pain Encounter for long-term (current) use of NSAIDs Encounter for long-term opiate analgesic use Spinal stenosis, thoracic region Surgical History Hx of carpal tunnel repair Hx of cholecystectomy Hx of knee surgery Hx of kyphoplasty Family History Father Cancer Mother Cancer Family/Other Dementia Diabetes Other Hypertension Denies family history of CAD (coronary artery disease) Clotting disorder Chronic kidney disease (CKD) Suicide Anesthesia complication Bleeding disorder Lung disease Stroke Social History Smoking and tobacco/nicotine status: former use of tobacco/nicotine Second hand smoke exposure: Yes Alcohol intake: current Alcohol intake frequency: holidays/special occasions only Substance/Drug Use: never Physical Exam Const: COMMON NORMALS: no acute distress GENERAL APPEARANCE: cooperative and comfortable ORIENTATION/CONSCIOUSNESS: Yes awake, Yes oriented to person, Yes oriented to place and Yes oriented to time HENMT: COMMON NORMALS: normocephalic, atraumatic and hearing grossly normal bilaterally HEAD & SCALP: normocephalic and atraumatic Resp: COMMON NORMALS: normal respiratory effort, No retractions, No use of accessory muscles and clear to auscultation bilaterally AUSCULTATION: clear to auscultation bilaterally Cardio: COMMON NORMALS: regular rate, regular rhythm and No murmurs present (Cardio) RATE: regular rate RHYTHM: regular rhythm GI: COMMON NORMALS: Soft to palpation and No hepatosplenomegaly present AUSCULTATION: Yes normoactive bowel sounds PALPATION: Yes Soft to palpation, No Tenderness to palpation present (GI), No Guarding due to palpation present (GI) and Yes No hepatosplenomegaly present Extremity: COMMON NORMALS: normal to inspection, capillary refill normal, no clubbing, cyanosis or edema, no calf tenderness and no pedal edema Neuro: SENSORIUM/ORIENTATION: Yes oriented to person, Yes oriented to place and Yes oriented to time Skin: COMMON NORMALS: no rashes or lesions noted GENERAL SKIN EXAM: no rashes or lesions noted Course Vital Signs: Vital signs: Vital Signs Temperature 98.2 F 12/17/24 08:12 Pulse Rate 69 12/17/24 09:22 Respiratory Rate 20 H 12/17/24 08:21 Blood Pressure 156/84 12/17/24 09:22 Pulse Oximetry 96 12/17/24 09:22 MDM - Extremity (Nontraumatic) Medical Decision Making Patient currently has narcotics at home because of pain contract at the pain clinic so we did not prescribe anything further. No acute fracture noted in the right hip where she is localizing most of her pain she still has pain from her insufficiency sacral insufficiency fracture. Added Lyrica follow-up with primary care and pain clinic. Medical Records I reviewed the patient's medical records. Lab Data I reviewed the patient's lab results. Radiology Impressions Hip/Pelvis X-Ray 12/17/24 08:17 IMPRESSION: Mild right hip DJD. All radiology interpretation(s) finalized by discharge Discharge Plan Discharge Patient Disposition: Home Clinical Impression: Pain in right hip, Sacral insufficiency fracture Condition: Stable Prescriptions: New pregabalin [Lyrica] 75 mg capsule 75 mg PO BID Qty: 60 0RF No Action amlodipine 5 mg tablet 5 mg PO DAILY aspirin [Adult Aspirin Regimen] 81 mg tablet,delayed release (DR/EC) 81 mg PO DAILY escitalopram oxalate 10 mg tablet 10 mg PO DAILY rosuvastatin [Crestor] 40 mg tablet 40 mg PO DAILY bupropion HCl 150 mg tablet extended release 24 hr 150 mg PO DAILY (DME) Diabetic Shoes See Rx Instructions .ROUTE .MEDSUPPLY Qty: 1 0RF Rx Instructions: As directed by Diane Santoro & Suzi with 3 pairs of inserts (DME) ASO to the right See Rx Instructions .Route .MEDSUPPLY Qty: 1 0RF Rx Instructions: As directed potassium chloride 20 mEq tablet extended release 20 meq PO DAILY Rx Instructions: When I take them Trulicity 0.75 mg/0.5 mL pen injector 0.75 mg SUBCUT .Weekly (DME) Diabetic shoes See Rx Instructions .ROUTE .MEDSUPPLY Qty: 1 0RF Rx Instructions: With 1 pair custom molded accommodative orthotics (DME) ASO See Rx Instructions .Route .MEDSUPPLY Qty: 1 0RF Rx Instructions: As directed Januvia 100 mg tablet 100 mg PO DAILY furosemide 40 mg tablet 60 mg PO DAILY Qty: 180 3RF Rx Instructions: Take 1 & 1/2 tabs (60mg) daily Takes when she is home ezetimibe 10 mg tablet See Rx Instructions .ROUTE .COMPLEX Qty: 90 3RF Dose Instruction: TAKE 1 TABLET BY MOUTH EVERY DAY Rx Instructions: TAKE 1 TABLET BY MOUTH EVERY DAY glipizide 10 mg tablet extended release 24hr 40 mg PO QPM hydrocodone-acetaminophen 5-325 mg Tablet 1 tab PO TID PRN (Reason: Pain) calcium carbonate-vitamin D3 [Calcium 600 + D(3)] 600 mg-10 mcg (400 unit) Tablet 1 tab PO DAILY ropinirole 1 mg tablet See Rx Instructions .ROUTE .COMPLEX Rx Instructions: TAKE 1 TABLET BY MOUTH EVERY MORNING and TWO EVERY EVENING [place] 3 Fish Oil 684-1,200 mg Capsule,Delayed Release(Dr/Ec) 1 cap PO DAILY trazodone 50 mg tablet 50 mg PO BEDTIME PRN (Reason: Insomnia) tizanidine 4 mg tablet 4 mg PO QPM Discharge Orders: Discharge ED (Routine); Ordered 12/17/24 Ordered By: Efren Bermudez Referrals: Dena Mueller MD [Primary Care Provider, Family Practice] Discharge Diet: Usual diet Discharge Activity: Increase activity as tolerated Patient Instructions: Opioid Safety, Pain Management Activity Restrictions/Additional Instructions: Thank you for choosing [facility] for your healthcare needs today. It is very important that you follow up as instructed or that you return to the Emergency Department should you have concerns or if your condition changes or worsens in any way. You were seen emergency room with right hip pain reviewing your previous records you had a sacral insufficiency fracture. X-rays today did not show any new fractures. Recommend following up with your primary care doctor pain management and orthopedics as planned. We did add Lyrica today. Take 75 mg 1 pill twice a day follow-up with the pain clinic to see if they wish you to continue on this medication. Print Language: Portuguese Coding Level of Care Code ED Fire Boss for Ainsley Daigle
[2024-12-17] MEDS: ketorolac 30 mg/mL INJ IVP (08:41)
[2024-12-17 09:22] VITALS: BP 156/84; PULSE 69; O2SAT 96
== END 2024-12-17 09:24 | disposition home or self-care (01) ==
PROVIDERS: Emergency Provider Family Medicine; PCP Family Medicine
DX: S32.19XA Other fracture of sacrum, initial encounter for closed fracture (principal); M25.551 Pain in right hip; Z79.82 Long term (current) use of aspirin; Z87.891 Personal history of nicotine dependence; E78.5 Hyperlipidemia, unspecified; E11.22 Type 2 diabetes mellitus with diabetic chronic kidney disease; I12.9 Hypertensive chronic kidney disease with stage 1 through stage 4 chronic kidney disease, or unspecified chronic kidney disease; N18.9 Chronic kidney disease, unspecified; X58.XXXA Exposure to other specified factors, initial encounter
CPT/HCPCS: 73502; 96374; 99284; J1885

== ENCOUNTER → 2024-12-22 09:00 | Outpatient (BNVA) | payer MEDICARE, MEDICAID, SELFPAY | PROVIDERS: PCP Family Medicine; Visit Provider Nurse Practitioner | DX: M17.12 Unilateral primary osteoarthritis, left knee (principal); Q78.0 Osteogenesis imperfecta | CPT/HCPCS: 99213 ==

== ENCOUNTER → 2025-01-02 10:15 | Outpatient (BNVA) | payer MEDICARE, MEDICAID, SELFPAY | PROVIDERS: PCP Family Medicine; Visit Provider Nurse Practitioner Family | DX: I25.10 Atherosclerotic heart disease of native coronary artery without angina pectoris (principal); I11.0 Hypertensive heart disease with heart failure; I50.30 Unspecified diastolic (congestive) heart failure; E78.49 Other hyperlipidemia; E11.9 Type 2 diabetes mellitus without complications; Z79.85 Long-term (current) use of injectable non-insulin antidiabetic drugs; I73.9 Peripheral vascular disease, unspecified; Z79.82 Long term (current) use of aspirin; Z87.891 Personal history of nicotine dependence | CPT/HCPCS: 99214 ==

== ENCOUNTER → 2025-01-08 06:47 | Outpatient (BNVA) | payer MEDICARE, MEDICAID, SELFPAY | PROVIDERS: PCP Family Medicine; Visit Provider Podiatrist Foot & Ankle Surgery | DX: E11.42 Type 2 diabetes mellitus with diabetic polyneuropathy (principal); L60.3 Nail dystrophy; L84 Corns and callosities; I73.9 Peripheral vascular disease, unspecified; E11.8 Type 2 diabetes mellitus with unspecified complications | CPT/HCPCS: 11056; 11721 ==

== ENCOUNTER → 2025-03-26 06:55 | Outpatient (BNVA) | payer MEDICARE, MEDICAID, SELFPAY | PROVIDERS: PCP Family Medicine; Visit Provider Podiatrist Foot & Ankle Surgery | DX: E11.42 Type 2 diabetes mellitus with diabetic polyneuropathy (principal); L60.3 Nail dystrophy; L84 Corns and callosities; I73.9 Peripheral vascular disease, unspecified; E11.8 Type 2 diabetes mellitus with unspecified complications | CPT/HCPCS: 11056; 11721 ==

== ENCOUNTER → 2025-03-30 11:02 | Outpatient (BNVA) | payer MEDICARE, MEDICAID, SELFPAY | PROVIDERS: PCP Family Medicine; Visit Provider Nurse Practitioner | DX: M17.12 Unilateral primary osteoarthritis, left knee (principal); Q78.0 Osteogenesis imperfecta | CPT/HCPCS: 99213 ==

== ENCOUNTER → 2025-06-25 06:56 | Outpatient (BNVA) | payer MEDICARE, MEDICAID, SELFPAY | PROVIDERS: PCP Family Medicine; Visit Provider Podiatrist Foot & Ankle Surgery | DX: E11.42 Type 2 diabetes mellitus with diabetic polyneuropathy (principal); L60.3 Nail dystrophy; L84 Corns and callosities; I73.9 Peripheral vascular disease, unspecified | CPT/HCPCS: 11056; 11721 ==

== ENCOUNTER → 2025-06-29 09:17 | Outpatient (BNVA) | payer MEDICARE, MEDICAID, SELFPAY | PROVIDERS: PCP Family Medicine; Visit Provider Nurse Practitioner | DX: M19.011 Primary osteoarthritis, right shoulder (principal); M19.012 Primary osteoarthritis, left shoulder; M67.813 Other specified disorders of tendon, right shoulder | CPT/HCPCS: 20610; 73030; 99214; J1100; J2795; J3301; J9999 ==